=== PATIENT | male | born 1950 | race Caucasian/White ===

== ENCOUNTER 2021-10-23 22:44 | Inpatient (IN) ==
--- NOTE | 2021-10-23 23:33 | Emergency Department Note ---
History of Present Illness General Chief complaint: Back Injury/Pain Stated complaint: INTOXICATED/BACK AND FOOT PAIN Time Seen by Provider: 10/23/21 22:50 History of Present Illness Maximum Pain Intensity: 7 This 71-year-old on Coumadin presents to the ER complaining of alcohol intoxica tion who fell during his sobriety test Location: Generalized Quality: Intoxicated Severity: Moderate Duration: Tonight Timing: Tonight Context: Patient fell during his sobriety testing and was brought in Modifying factors: better with nothing; worse with nothing patient states he was drinking whiskey tonight. The police pulled him over and he fell during sobriety testing. They were concerned and brought him in. Patient is unsure why he is on Coumadin. Patient has chronic back pain and foot pain. Patient denies chest pain, dyspnea, headache, neck pain, abdominal pain, worsening back pain or foot pain. Home Medications Medication Instructions Recorded Confirmed Type albuterol sulfate 2.5 mg INHALATION Q4H PRN 02/02/21 10/23/21 History eplerenone 25 mg tablet 25 mg PO DAILY 02/02/21 10/23/21 History fluticasone propionate 50 2 spray INTRANASAL DAILY 02/02/21 10/23/21 History mcg/actuation nasal spray,suspension lanolin alcohols-mineral 1 applic TOPICAL DAILY PRN 02/02/21 10/23/21 History oil-w.petrolatum-ceresin topical cream (Eucerin) losartan 50 mg tablet 50 mg PO DAILY 02/02/21 10/23/21 History magnesium oxide 400 mg PO DAILY 02/02/21 10/23/21 History montelukast 10 mg tablet 10 mg PO HS 02/02/21 10/23/21 History omeprazole 20 mg capsule,delayed 20 mg PO DAILYBB 02/02/21 10/23/21 History release sennosides 8.6 mg tablet (senna) 8.6 mg PO BID 02/02/21 10/23/21 History triamcinolone acetonide 0.1 % 1 applic TOPICAL BID PRN 02/02/21 10/23/21 History topical cream vitamin B complex 1 cap PO DAILY 02/02/21 10/23/21 History BiPap Machine 07/01/21 07/01/21 History fluticasone fur. 200 mcg-umeclid 1 inh INHALATION DAILY 07/01/21 10/23/21 History 62.5 mcg-vilant 25 mcg inhalat.powder (Trelegy Ellipta) silver sulfadiazine 1 % topical 1 applic TOPICAL DAILY 07/01/21 10/23/21 History cream tramadol 50 mg tablet 50 mg PO Q8H PRN 07/01/21 10/23/21 History albuterol sulfate 90 mcg/actuation 2 puff INHALATION Q6H PRN 10/23/21 10/23/21 History aerosol inhaler allopurinol 100 mg tablet 100 mg PO Q8H 10/23/21 10/23/21 History carvedilol 6.25 mg tablet 6.25 mg PO BIDM 10/23/21 10/23/21 History furosemide 40 mg tablet 80 mg PO BID 10/23/21 10/23/21 History gabapentin 100 mg capsule 200 mg PO TID 10/23/21 10/23/21 History guaifenesin 600 mg tablet, 600 mg PO Q12H 10/23/21 10/23/21 History extended release 12 hr (Mucinex) meloxicam 15 mg tablet 15 mg PO DAILY PRN 10/23/21 10/23/21 History metformin 500 mg tablet,extended 500 mg PO BID 10/23/21 10/23/21 History release 24 hr rosuvastatin 20 mg tablet 20 mg PO DAILY 10/23/21 10/23/21 History warfarin 2 mg tablet See Rx Instructions .ROUTE .COMPLEX 10/23/21 10/23/21 History Allergies Allergy/AdvReac Type Severity Reaction Status Date / Time doxycycline AdvReac Intermediate DRY HEAVES Verified 10/23/21 23:17 PER [facility]. Past Med/Surg History Medical History Alcohol abuse in remission Asthma CAD (coronary artery disease) Cardiac defibrillator in place Centrilobular emphysema COPD (chronic obstructive pulmonary disease) COVID-19 Elevated PSA Gastroesophageal reflux disease without esophagitis Heart failure Hilar enlargement History of tobacco use Idiopathic cardiomyopathy Kienbock's disease of adults ANGELICA treated with BiPAP Peripheral neuropathy Presence of permanent cardiac pacemaker Prostate nodule Pure hypercholesterolemia Swelling, mass, or lump in chest 04/16/10 non diagnostic bronchoscopy Type 2 diabetes mellitus Surgical History History of permanent cardiac pacemaker placement Hx of colonoscopy Hx of prostate biopsy Status post left foot surgery Social History Smoking Status: Former smoker Number of Years Since Quit: 14; Hx Alcohol Use: Yes Hx Substance Use: No Preferred Language: Bahamian Communication Ability: Effective Visual Impairment: Limited Hearing Ability: Hard of Hearing 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 Beliefs That Will Affect Care: None Current Living Situation: Alone current occupational status: retired Feels Safe at Home: Yes Physical Activity Frequency Comment: has not been able to walk while recovering from surgery Assistive Devices: None Review of Systems A total of 10 systems reviewed and were otherwise negative Physical Exam Vital Signs Vital Signs - 24 hr 10/23/21 22:50 10/23/21 23:39 10/24/21 00:11 Temperature 37.0 C Temperature Source Oral Pulse Rate 76 73 Pulse Rate [Left Finger] 76 Respiratory Rate 18 18 26 H Respiratory Effort / Characteristics Non-Labored Spontaneous Non-Labored Spontaneous Respiratory Depth Normal Normal Blood Pressure 99/54 L Blood Pressure [Left Arm] 92/49 L Blood Pressure Mean 69 Blood Pressure Mean [Left Arm] 63 Pulse Oximetry 91 92 89 L Oxygen Delivery Method Room Air Room Air Room Air Oxygen Flow Rate 4 Sepsis Recent Fever Within 48 Hours No Sepsis New/Unexplained Change in Mental Status No Sepsis Action Taken by Nursing No Action Required 10/24/21 00:13 10/24/21 01:00 10/24/21 01:12 Temperature 36.5 C Temperature Source Oral Pulse Rate Pulse Rate [Left Finger] 68 69 82 Respiratory Rate 26 H 26 H 21 Respiratory Effort / Characteristics Respiratory Depth Normal Blood Pressure Blood Pressure [Left Arm] 101/55 L 105/46 L 106/54 L Blood Pressure Mean Blood Pressure Mean [Left Arm] 70 65 71 Pulse Oximetry 98 97 96 Oxygen Delivery Method Room Air Nasal Cannula Nasal Cannula Oxygen Flow Rate 4 4 Sepsis Recent Fever Within 48 Hours Sepsis New/Unexplained Change in Mental Status Sepsis Action Taken by Nursing PHYSICAL EXAM: VITALS: Vitals are noted on the nurse's note and reviewed by myself. Vital signs stable. GENERAL: Pleasant gentleman with EtOH odor, in no acute distress, nondiaphoretic, well-developed well-nourished. SKIN: Left foot cellulitis, not circumferential, the rest of the skin was without obvious lacerations or abrasions. Capillary reflex less than 2 seconds. HEAD: Normocephalic atraumatic. EARS: External auditory canals clear, tympanic membranes pearly carpenter without erythema or effusion bilaterally. No hemotympanums. No connolly sign. No mastoid tenderness. EYES: Pupils equal round and reactive to light and accommodation. Conjunctivae with mild injection, sclerae without icterus. Extraocular movements intact. NOSE: Patent, turbinates without inflammation or discharge. No sinus tenderness. No septal hematoma or bleeding. MOUTH: Mucous membranes moist. Pharynx without erythema or exudate. Uvula midl ine. Airway patent. Tongue does not deviate. NECK: Supple without nuchal rigidity. Cervical spine is nontender. Full range of motion of the neck without tenderness. No JVD. HEART: Regular rate and rhythm LUNGS: Clear to auscultation bilaterally without wheezes, rales or rhonchi. No dullness to percussion. No retractions or accessory muscle use. No chest wall tenderness. ABDOMEN: Positive bowel sounds x 4. Normal tympanic percussion. Soft, nontender, without masses or organomegaly. No guarding or rebound tenderness. MUSCULOSKELETAL: No tenderness of the thoracic or lumbar spine. No tenderness with pelvic rocking. Full range of motion without tenderness to palpation in all extremities. Strength 5/5 throughout. Peripheral pulses 2+. NEURO: Patient was alert and oriented to person place and time. Normal sensation to light and sharp touch. No focal neurological deficits. Course Administered Medications Discontinued Medications Sodium Chloride (Nss 1000ml) 250 mls @ 999 mls/hr IV .Q16M ONE Stop: 10/24/21 00:02 Last Infusion: 10/24/21 01:42 Dose: 0 mls/hr Documented by: [id number] Admin: 10/24/21 00:15 Dose: 999 mls/hr Documented by: [id number] Ceftriaxone Sodium (Rocephin) 2,000 mg in 70 mls @ 140 mls/hr IV NOW STA Stop: 10/24/21 00:57 Last Infusion: 10/24/21 01:42 Dose: 0 mls/hr Documented by: [id number] Admin: 10/24/21 01:01 Dose: 140 mls/hr Documented by: [id number] Sodium Chloride (Nss 1000ml) 1,000 mls @ 999 mls/hr IV .Q1H1M ONE Stop: 10/24/21 01:42 Last Admin: 10/24/21 01:01 Dose: 999 mls/hr Documented by: [id number] Medical Decision Making Medical Records Attestation: I reviewed the patient's medical records. Home Medications Current Medication List: was personally reviewed by me Laboratory Data Attestation: I reviewed the patient's lab results. Result diagrams: 10/23/21 23:12 10/23/21 23:22 Lab Results 10/23/21 10/23/21 10/23/21 Range/Units 23:12 23:12 23:12 WBC 10.51 (4.8-10.8) K/uL RBC 4.10 L (4.7-6.1) M/uL Hgb 13.0 L (14.0-18.0) g/dL Hct 38.2 L (42-52) % MCV 93.2 (80-100) fL MCH 31.7 (25-34) pg MCHC 34.0 (32-36) g/dL RDW Std Deviation 48.0 H (36.4-46.3) fL RDW Coeff of Anne-Marie 14.1 (11.5-14.5) % Plt Count 193 (130-400) K/uL MPV 10.9 H (7.4-10.4) fL Immature Gran % (Auto) 0.2 % Neut % (Auto) 64.6 % Lymph % (Auto) 24.9 % [place] % (Auto) 9.5 % Eos % (Auto) 0.6 % Baso % (Auto) 0.2 % Neut # (Auto) 6.79 H (1.4-6.5) K/uL Lymph # (Auto) 2.62 (1.2-3.4) K/uL [place] # (Auto) 1.00 H (0.11-0.59) K/uL Eos # (Auto) 0.06 (0-0.5) K/uL Baso # (Auto) 0.02 (0-0.2) K/uL Immature Gran # (Auto) 0.02 (0.00-0.02) K/uL PT 25.9 H (9.0-12.0) Seconds INR 2.6 H (0.9-1.1) APTT 38.4 H (21.0-31.0) Seconds PTT Ratio 1.4 Sodium (136-145) mmol/L Potassium (3.5-5.1) mmol/L Chloride (98-107) mmol/L Carbon Dioxide (21-32) mmol/L Anion Gap (3-11) BUN (6-23) mg/dl Creatinine (0.6-1.4) mg/dl Est Cr Clr Drug Dosing Est GFR ( Amer) ml/min Est GFR (Non-Af Amer) ml/min BUN/Creatinine Ratio (10-20) Glucose (70-99(Fasting)) mg/dl Calcium (8.5-10.1) mg/dl Magnesium (1.7-2.4) mg/dl Total Bilirubin (0.2-1.0) mg/dl AST (13-39) U/L ALT (7-52) U/L Alkaline Phosphatase (34-104) U/L Troponin I High Sens (0-20) pg/ml Total Protein (6.0-8.3) gm/dl Albumin (3.4-5.0) gm/dl Globulin (2.5-4.0) gm/dl Albumin/Globulin Ratio (0.9-2) Ethyl Alcohol mg/dL 300.1 H (<10.0) mg/dl SARS-CoV-2, RNA, NAAT (NEGATIVE) 10/23/21 10/23/21 10/24/21 Range/Units 23:22 23:22 00:55 WBC (4.8-10.8) K/uL RBC (4.7-6.1) M/uL Hgb (14.0-18.0) g/dL Hct (42-52) % MCV (80-100) fL MCH (25-34) pg MCHC (32-36) g/dL RDW Std Deviation (36.4-46.3) fL RDW Coeff of Anne-Marie (11.5-14.5) % Plt Count (130-400) K/uL MPV (7.4-10.4) fL Immature Gran % (Auto) % Neut % (Auto) % Lymph % (Auto) % [place] % (Auto) % Eos % (Auto) % Baso % (Auto) % Neut # (Auto) (1.4-6.5) K/uL Lymph # (Auto) (1.2-3.4) K/uL [place] # (Auto) (0.11-0.59) K/uL Eos # (Auto) (0-0.5) K/uL Baso # (Auto) (0-0.2) K/uL Immature Gran # (Auto) (0.00-0.02) K/uL PT (9.0-12.0) Seconds INR (0.9-1.1) APTT (21.0-31.0) Seconds PTT Ratio Sodium 130 L (136-145) mmol/L Potassium 3.6 (3.5-5.1) mmol/L Chloride 95 L (98-107) mmol/L Carbon Dioxide 24 (21-32) mmol/L Anion Gap 11 (3-11) BUN 23 (6-23) mg/dl Creatinine 0.96 (0.6-1.4) mg/dl Est Cr Clr Drug Dosing Not Reportable Est GFR ( Amer) 92.4 ml/min Est GFR (Non-Af Amer) 79.8 ml/min BUN/Creatinine Ratio 24.0 H (10-20) Glucose 99 (70-99(Fasting)) mg/dl Calcium 8.2 L (8.5-10.1) mg/dl Magnesium 2.1 (1.7-2.4) mg/dl Total Bilirubin 0.5 (0.2-1.0) mg/dl AST 28 (13-39) U/L ALT 21 (7-52) U/L Alkaline Phosphatase 93 (34-104) U/L Troponin I High Sens 8.4 (0-20) pg/ml Total Protein 7.0 (6.0-8.3) gm/dl Albumin 3.6 (3.4-5.0) gm/dl Globulin 3.4 (2.5-4.0) gm/dl Albumin/Globulin Ratio 1.1 (0.9-2) Ethyl Alcohol mg/dL (<10.0) mg/dl SARS-CoV-2, RNA, NAAT NEGATIVE (NEGATIVE) Imaging Data Attestation: I personally reviewed and interpreted this imaging study as follows: MDM Narrative Prior records/ancillary studies reviewed. Triage Nursing notes reviewed. Additional history obtained from police patrol lieutenant. The patient's history was concerning for traumatic injury Differential diagnosis: Etiologies such as fracture, dislocation, intra-abdominal, pneumothorax, intrathoracic , intracranial, neurologic, as well as other traumatic pathologies were entertained. Physical examination findings: As above. The patients vitals were stable. ER treatment provided: Patient was observed An order was placed for continuous cardiac monitoring. The monitor shows a rate of 60-100 with a sinus stable rhythm. On reassessment the patient felt better. Vital signs were hypotensive and patient was given IV fluids and blood pressure improved. []. Diagnostic interpretation by me: A 12 lead ECG revealed no emergent pathology. EKG: Paced rhythm with no acute ST-T wave changes, rate of 74. Impression paced rhythm interpreted by myself I think arrhythmia is unlikely. EKG shows no interval abnormalities such as QT prolongation or WPW. There are no findings to suggest Brugada syndrome. Cardiac monitoring in the emergency department reveals no tachycardic or bradycardic dysrhythmia. Hypertrophic cardiomyopathy was considered but there are no clear historical elements pointing toward this. EKG is not suggestive. The QRS voltage is not extremely large and there are no suggestive Q waves. The labs revealed mild anemia, therapeutic INR Alcohol 300 Imaging studies: CT HEAD: No ICH, mass effect or edema. No skull fracture. CT C SPINE: No acute fracture or malalignment. Radiologist: Casey Ford MD Consultation: A consultation was placed with hospitalist. the case was discussed and diagnostics were reviewed. The patient was admitted to their service. This appears to be consistent with alcohol intoxication with foot cellulitis. Patient's blood pressure did drop and improved nicely with some IV fluids. He is agreeable to treatment plan of admission. He was admitted to the medical service for alcohol overdose and foot cellulitis. By the evaluation outlined above emergent etiologies such as fracture, dislocation, intra-abdominal, pneumothorax, pulmonary contusion, hemothorax, intracranial, neurologic,as well as others were deemed relatively unlikely. The pt informed about the findings as listed above. All questions were answered and pleased with the treatment. The chart was completed utilizing [employer] voice recognition software. Grammatical errors, random word insertions, pronoun errors, and incomplete sentences are an occassional consequence of this system due to software limitations, ambient noise, and hardware issues. Any formal questions or concerns about the content, text, or information contained within the body of this dictation should be directly addressed to the physician fiscal assistant for clarification. Impression & Plan Alcohol intoxication, Fall, Cellulitis of foot Discharge Plan Visit Data Chief Complaint: Back Injury/Pain Stated Complaint: INTOXICATED/BACK AND FOOT PAIN ED Provider: Daina Casarez ED Midlevel Provider: Savanna Washington Discharge Problem: Alcohol intoxication, Fall, Cellulitis of foot Patient Disposition: Admitted As Inpatient Condition: Fair Forms Stand Alone Forms: [facility] Prescriptions Prescriptions: No Action tramadol 50 mg tablet 50 mg PO Q8H PRN (Reason: Pain, Severe) RF: 0 Trelegy Ellipta 200-62.5-25 mcg blister with device 1 inh inhalation DAILY RF: 0 silver sulfadiazine 1 % cream 1 applic topical DAILY RF: 0 (DME) BiPap Machine Misc See Rx Instructions .ROUTE RF: 0 furosemide 40 mg tablet 80 mg PO BID RF: 0 carvedilol 6.25 mg Tablet 6.25 mg PO BIDM RF: 0 meloxicam 15 mg Tablet 15 mg PO DAILY PRN (Reason: Pain) RF: 0 allopurinol 100 mg tablet 100 mg PO Q8H RF: 0 warfarin 2 mg Tablet See Rx Instructions .ROUTE .COMPLEX RF: 0 gabapentin 100 mg Capsule 200 mg PO TID RF: 0 albuterol sulfate 90 mcg/actuation Hfa Aerosol Inhaler 2 puff INHALATION Q6H PRN (Reason: Shortness Of Breath Or Wheezing) RF: 0 metformin 500 mg tablet extended release 24 hr 500 mg PO BID RF: 0 rosuvastatin 20 mg tablet 20 mg PO DAILY RF: 0 guaifenesin [Mucinex] 600 mg Tablet Extended Release 12hr 600 mg PO Q12H RF: 0 losartan 50 mg Tablet 50 mg PO DAILY RF: 0 sennosides [senna] 8.6 mg Tablet 8.6 mg PO BID RF: 0 albuterol sulfate 2.5 mg /3 mL (0.083 %) Solution For Nebulization 2.5 mg INHALATION Q4H PRN (Reason: Wheezing) RF: 0 triamcinolone acetonide 0.1 % Cream 1 applic TOPICAL BID PRN (Reason: Skin Irritation) RF: 0 omeprazole 20 mg Capsule,Delayed Release(Dr/Ec) 20 mg PO DAILYBB RF: 0 montelukast 10 mg Tablet 10 mg PO HS RF: 0 fluticasone propionate 50 mcg/actuation [place],Suspension 2 spray INTRANASAL DAILY RF: 0 vitamin B complex Capsule 1 cap PO DAILY RF: 0 eplerenone 25 mg Tablet 25 mg PO DAILY RF: 0 Eucerin Cream 1 applic TOPICAL DAILY PRN (Reason: Rash) RF: 0 magnesium oxide 400 mg magnesium Capsule 400 mg PO DAILY RF: 0 Referrals Referrals: Konrad Reinoso MD [Primary Care Provider] - Discharge Problem: Alcohol intoxication Qualifiers: Complication of substance-induced condition: uncomplicated Qualified Code(s): F10.920 - Alcohol use, unspecified with intoxication, uncomplicated
[2021-10-23 23:35] LABS: Basophils # (auto) 0.02 K/uL (0-0.2); Basophils % (auto) 0.2 %; Eosinophils # (auto) 0.06 K/uL (0-0.5); Eosinophils % (auto) 0.6 %; Hematocrit (blood only) 38.2 % (42-52); Immature Granulocytes # (auto) 0.02 K/uL (0.00-0.02); Immature Granulocytes % (auto) 0.2 %; Lymphocytes # (auto) 2.62 K/uL (1.2-3.4); Lymphocytes % (auto) 24.9 %; Mean Corpuscular Hemoglobin 31.7 pg (25-34); Mean Corpuscular Volume 93.2 fL (80-100); Mean Platelet Volume 10.9 fL (7.4-10.4); Monocytes % (auto) 9.5 %; Neutrophils # (auto) 6.79 K/uL (1.4-6.5); Neutrophils % (auto) 64.6 %; Platelet Count 193 K/uL (130-400); RDW Coefficient of Variation 14.1 % (11.5-14.5); White Blood Count 10.51 K/uL (4.8-10.8)
[2021-10-23 23:45] LABS: INR 2.6 (0.9-1.1); Partial Thromboplastin Ratio 1.4; Partial Thromboplastin Time 38.4 Seconds (21.0-31.0); Prothrombin Time 25.9 Seconds (9.0-12.0)
[2021-10-23] MEDS ORDERED: SODIUM CHLORIDE 0.9% 1000ML 250 ML IV ONE (23:47)
[2021-10-24 00:02] LABS: Alanine Aminotransferase 21 U/L (7-52); Albumin Globulin Ratio 1.1 (0.9-2); Albumin Level 3.6 gm/dl (3.4-5.0); Alkaline Phosphatase 93 U/L (34-104); Anion Gap 11 (3-11); Aspartate Aminotransferase 28 U/L (13-39); Bilirubin,Total 0.5 mg/dl (0.2-1.0); Blood Urea Nitrogen 23 mg/dl (6-23); Calcium 8.2 mg/dl (8.5-10.1); Carbon Dioxide 24 mmol/L (21-32); Chloride 95 mmol/L (98-107); Est GFR (African American) 92.4 ml/min; Est GFR (Non-African American) 79.8 ml/min; Globulin 3.4 gm/dl (2.5-4.0); Glucose 99 mg/dl (70-99(Fasting)); Potassium 3.6 mmol/L (3.5-5.1); Sodium 130 mmol/L (136-145)
[2021-10-24] MEDS ORDERED: cefTRIAXone SODIUM 2,000 MG/70 ML BAG IV STA (00:28)
[2021-10-24] MEDS ORDERED: SODIUM CHLORIDE 0.9% 1000ML 1,000 ML IV ONE (00:42)
[2021-10-24 01:07] LABS: Magnesium 2.1 mg/dl (1.7-2.4)
[2021-10-24 01:28] LABS: Troponin I High Sensitivity 8.4 pg/ml (0-20)
[2021-10-24] MEDS ORDERED: FUROSEMIDE 40 MG/4 ML VIAL IV ONE (01:45)
[2021-10-24] MEDS ORDERED: GABAPENTIN 1200MG ALCOHOL WITHDRAWAL LOAD PO STA (01:45)
[2021-10-24] MEDS ORDERED: traMADol HCL 50 MG TABLET PO PRN (02:35)
[2021-10-24] MEDS ORDERED: ATIVAN IV ALCOHOL WITHDRAWL IV PRN (02:35)
[2021-10-24] MEDS ORDERED: LORazepam 2 MG/1 ML VIAL IV PRN ×3 (02:35)
[2021-10-24] MEDS ORDERED: TRIAMCINOLONE ACET 0.1% CR 15 GM TUBE TOP PRN (02:35)
[2021-10-24] MEDS ORDERED: ALBUTEROL 0.083% NEBU SOLN 3 ML VIAL INH PRN (02:35)
[2021-10-24] MEDS ORDERED: ALBUTEROL HFA 8 GM INHALER INH PRN (02:35)
[2021-10-24] MEDS ORDERED: NITROGLYCERIN SL 0.4 MG/TAB TAB SL PRN (02:35)
[2021-10-24] MEDS ORDERED: ONDANSETRON INJ 2 MG/ML 2 ML VIAL IV PRN (02:35)
[2021-10-24] MEDS ORDERED: GABAPENTIN 600 MG TAB PO ONE (03:00)
[2021-10-24] MEDS ORDERED: MULTI-VITAMIN INFUSION 10 ML, THIAMINE HCL 100 MG, FOLIC ACID 1 MG in SODIUM CHLORIDE 0... IV ONE (03:00)
[2021-10-24] MEDS ORDERED: EUCERIN CR 120 GM JAR TOP PRN (03:09)
[2021-10-24] MEDS ORDERED: CARBOHYDRATES FOR HYPOGLYCEMIA PO PRN (03:15)
[2021-10-24] MEDS ORDERED: GLUCOSE 10 TABS/TUBE PO PRN (03:15)
[2021-10-24] MEDS ORDERED: GLUCOSE 40% GEL 15 GM TUBE PO PRN (03:15)
[2021-10-24] MEDS ORDERED: DEXTROSE 50% 50 ML SYRINGE IV PRN (03:15)
[2021-10-24] MEDS ORDERED: GLUCAGON FOR INJ 1 MG VIAL IM PRN (03:15)
--- NOTE | 2021-10-24 04:10 | History and Physical Report ---
DATE OF ADMISSION: 10/24/2021. CHIEF COMPLAINT: Alcoholism, fall, hypoxia. HISTORY OF PRESENT ILLNESS: A 71-year-old male with past medical history significant for type 2 diabetes, hypercholesterolemia, COPD, sleep apnea on BiPAP; history of chronic systolic CHF with EF 20% many years ago, status post biventricular implantable cardiac defibrillator, Latest echo, EF normalized, nonischemic cardiomyopathy, hypertension, GERD, history of prostate cancer, kienbock's disease of adults, history of tobacco abuse, history of COVID, presents with alcoholism. The patient was stopped by chief security officer for driving under the influence, when he opened the door, he fell and chief security officer brought him here. No loss of consciousness. In the ER, he was hypoxic, currently on oxygen 4 liters. He is on Coumadin. INR is therapeutic. Currently alert, awake, and oriented. Denies any headache. No blurred vision, no double vision, no earache, no runny nose. Has chronic cough. Says he quit smoking several years ago. Denies any chest pain, feeling short of breath, no nausea, no vomiting, no abdominal pain, no diarrhea or constipation. No blood in stool or black stools. Normal bladder movements. Has chronic infection of the left foot. He said he had surgery in in the foot, afebrile. The patient says he drinks about 4-5 shots of whiskey every day and also 1 beer daily. His alcohol level was 300 in the ER. ALLERGIES: DOXYCYCLINE. PAST MEDICAL HISTORY: As mentioned above. PAST SURGICAL HISTORY: Colonoscopy, fusion of left mid foot bones in 03/2021 at [facility], left pacemaker insertion, left ventricular pacing electrode was early in 2012. MEDICATIONS: The patient is on albuterol 2 puffs inhalation q. 6 hours p.r.n., albuterol nebulization q. 4 hours p.r.n., allopurinol 100 mg p.o. t.i.d., Coreg 6.25 mg p.o. b.i.d., eplerenone 25 mg p.o. daily, Trelegy Ellipta one inhalation daily, Flonase 2 sprays intranasal daily, Lasix 80 mg p.o. b.i.d., gabapentin 200 mg p.o. t.i.d., Mucinex 600 mg p.o. b.i.d., losartan 50 mg p.o. daily, magnesium oxide 400 mg p.o. daily, meloxicam 15 mg p.o. daily p.r.n., metformin 500 mg p.o. b.i.d., montelukast 10 mg p.o. at bedtime, omeprazole 20 mg p.o. daily, atorvastatin 20 mg p.o. daily, senna 8.6 mg p.o. b.i.d., silver sulfadiazine 1% topical daily, tramadol 50 mg p.o. 8 hours p.r.n., vitamin B complex 1 capsule p.o. daily, warfarin as directed. FAMILY HISTORY: Significant for father had skin cancer, diabetes, heart disorder. Brother has heart disorder. SOCIAL HISTORY: Former smoker quit in 2007, smoked 2 packs a day for 35 years. Alcohol, says he has 4-5 shots of whiskey daily and also drinks 1 beer daily. No history of drug use. REVIEW OF SYSTEMS: As per HPI. Rest of review of systems is negative. PHYSICAL EXAMINATION: GENERAL: The patient is obese, not in acute distress. VITAL SIGNS: Temperature 36.5, pulse 82, respiratory rate 21, blood pressure 106/54, oxygen 96% on 4 liters. HEENT: Pupils equal, round and reactive to light. Oral mucosa moist. NECK: No JVD. No neck mass. CARDIOVASCULAR: S1 and S2 heard. Regular rate and rhythm. No murmur, no gallop. RESPIRATORY SYSTEM: Normal AP diameter. No accessory muscle use. No wheezing, no crackles. ABDOMEN: Soft, bowel sounds present, nontender, no distention. CENTRAL NERVOUS SYSTEM: Cranial nerves II-XII grossly intact, nonfocal. EXTREMITIES: Left foot erythematous and mildly warm to touch. No edema seen. LABORATORY DATA: WBC 10.5, hemoglobin 13, hematocrit 38.2, platelets 193. PT 25.9, INR 2.6. APTT 38.4. Sodium 130, potassium 3.6, chloride 95, bicarbonate 24, BUN 23, creatinine 0.9, serum glucose 99, calcium 8.2, magnesium 2.1, total bilirubin 0.5, AST 28, ALT 21, alkaline phosphatase 93, ethyl alcohol 100. SARS-CoV-2 rapid test negative. Chest x-ray, possible mild congestion. CT head, preliminary report, no acute findings. CT cervical spine, no fracture or malalignment. EKG: Atrial sensed ventricular paced rhythm, rate of 74. ASSESSMENT AND PLAN: This 71-year-old male presents with alcoholism and fall and hypoxia. 1. Alcoholism, alcohol of 300. The patient was stopped for driving under influence by the chief security officer. He says drinks 4-5 shots of whiskey daily and also one beer daily. We will place him on gabapentin withdrawal protocol, IV Ativan p.r.n., banana bag, IV thiamine, IV folic acid Closely monitor in the med tele. 2. Hypoxia. Possible acute on chronic HFpEF. The patient has history of chronic obstructive pulmonary disease, was not actively wheezing. Chest x-ray, possible mild congestion. History of heart failure with preserved ejection fraction. We will give a dose of IV Lasix 40 and also get an echocardiogram and monitor the response and also continue his home Lasix at 80 b.i.d. and Coreg, eplerenone, and losartan. 3. Left foot cellulitis. On rocephin. Will monitor response.Says as chrnic infection in that foot. Also monitor for gout flare. 4. Hx of gout on allopurinol 5.. Diabetes: Hold metformin. Placed on insulin sliding scale. Follow the HbA1c levels. 6 Hypertension: On losartan, Coreg and eplerenone. We will monitor the blood pressure. 7. History of chronic obstructive pulmonary disease: Continue home inhalers and nebs p.r.n. 8. Gastroesophageal reflux disease: Continue omeprazole. 9. Hyperlipidemia: Continue statin. 10. Hx of CHF. As per cardiology notes notes he had EF of 20%, 2 years ago and status post biventricular AICD. But later EF normalized.Follow up with Cardiology and follow the echocardiogram.The patient is on Coumadin, possibly for low EF in the past. INR is therapeutic. 11. History of prostate cancer: Followup with Urology. 12. Deep venous thrombosis prophylaxis: On Coumadin. 13. Obstructive sleep apnea, on BiPAP at bedtime. DISPOSITION: Closely monitor in the med tele. PT/OT prior to discharge. Social service to help with discharge planning. Level 1 full code. Job ID: [id number] [facility]
[2021-10-24] MEDS: allopurinoL 100 MG TAB PO SCH ×3 (05:32→22:51)
[2021-10-24] MEDS: PANTOprazole 40 MG TAB PO SCH (05:33)
[2021-10-24 05:42] LABS: INR 2.2 (0.9-1.1); Prothrombin Time 22.6 Seconds (9.0-12.0)
[2021-10-24 05:44] LABS: Basophils # (auto) 0.01 K/uL (0-0.2); Basophils % (auto) 0.1 %; Eosinophils # (auto) 0.01 K/uL (0-0.5); Eosinophils % (auto) 0.1 %; Hematocrit (blood only) 40.6 % (42-52); Hemoglobin 13.7 g/dL (14.0-18.0); Immature Granulocytes # (auto) 0.02 K/uL (0.00-0.02); Immature Granulocytes % (auto) 0.3 %; Lymphocytes % (auto) 6.3 %; Mean Corpuscular Hemoglobin 31.9 pg (25-34); Mean Corpuscular Hgb Conc 33.7 g/dL (32-36); Mean Corpuscular Volume 94.4 fL (80-100); Mean Platelet Volume 10.8 fL (7.4-10.4); Monocytes # (auto) 0.41 K/uL (0.11-0.59); Monocytes % (auto) 5.1 %; Neutrophils # (auto) 7.03 K/uL (1.4-6.5); Neutrophils % (auto) 88.1 %; Platelet Count 187 K/uL (130-400); RDW Coefficient of Variation 14.2 % (11.5-14.5); RDW Standard Deviation 48.7 fL (36.4-46.3); White Blood Count 7.98 K/uL (4.8-10.8)
[2021-10-24 06:01] LABS: Albumin Level 3.5 gm/dl (3.4-5.0); BUN Creatinine Ratio 22.8 (10-20); Bilirubin Direct 0.2 mg/dl (0-0.2); Bilirubin,Total 0.5 mg/dl (0.2-1.0); Calcium 7.9 mg/dl (8.5-10.1); Creatinine Clr Calc Pharmacy 93.9 ml/min; Est GFR (African American) 97.3 ml/min; Potassium 3.6 mmol/L (3.5-5.1); Total Protein 6.8 gm/dl (6.0-8.3)
--- NOTE | 2021-10-24 07:06 | CT Scan Report ---
HEAD CT NONCONTRAST CT DOSE: 1075.84 mGy.cm HISTORY: Trauma TECHNIQUE: Multiaxial CT images of the head were performed without the use of intravenous contrast. A utomated exposure control was utilized for this study. A dose lowering technique was utilized adheri ng to the principles of ALARA. Comparison: None. Findings: The paranasal sinuses and mastoid air cells are clear. The calvarium and skull base are int act. The ventricles and sulci are within normal limits. There is no mass, hematoma, midline shift, or acute infarct. Impression: No acute intracranial abnormality. ACT 112: Negative or not required by law. Electronically signed by: Surinder Dey M.D. 10/24/2021 7:05 AM
--- NOTE | 2021-10-24 07:13 | CT Scan Report ---
CERVICAL SPINE CT CT DOSE: HISTORY: Trauma TECHNIQUE: Multiaxial CT images of the cervical spine were performed and reformatted in the sagittal and coronal plane without the use of contrast. A dose lowering technique was utilized adhering to th e principles of ALARA. COMPARISON: None. FINDINGS: No fractures. No subluxation. Prevertebral soft tissues and the C1-C2 interval are intact. No pneumothorax. Severe degenerative disc disease at C5-C6. IMPRESSION: No fractures within the cervical spine. ACT 112: Negative or not required by law. Electronically signed by: Surinder Dey M.D. 10/24/2021 7:11 AM
[2021-10-24] MEDS: guaiFENesin 600 MG TABCR PO SCH ×2 (08:02→20:14)
[2021-10-24] MEDS: ROSUVASTATIN CALCIUM 20 MG TAB PO SCH (08:03)
[2021-10-24] MEDS: FUROSEMIDE 80 MG TAB PO SCH ×2 (08:03→15:38)
[2021-10-24] MEDS: MAGNESIUM OXIDE 400 MG TAB PO SCH (08:03)
[2021-10-24] MEDS: SENNA 8.6 MG TAB PO SCH ×2 (08:03→20:14)
[2021-10-24] MEDS: VITAMIN B COMPLEX TAB PO SCH (08:03)
[2021-10-24] MEDS: GABAPENTIN 100 MG CAP PO SCH ×2 (08:03→10:57)
[2021-10-24] MEDS: carvediloL 6.25 MG TAB PO SCH ×2 (08:03→15:36)
[2021-10-24] MEDS: LOSARTAN POTASSIUM 50 MG TAB PO SCH (08:03)
[2021-10-24] MEDS: THIAMINE HCL 100 MG in SYRINGE 9 ML IV SCH (08:04)
[2021-10-24] MEDS: FLUTICASONE PROPIONATE NA SPR 16 GM BTL SCH (08:04)
[2021-10-24] MEDS: FOLIC ACID 1 MG in SYRINGE 9.8 ML IV SCH (08:04)
[2021-10-24] MEDS: FLUTICASONE FUROATE 200MCG 14 PUFFS/INHALER INH SCH (08:04)
[2021-10-24] MEDS: UMECLIDINIUM/VILANTEROL 62.5/25MCG 7 PUFFS/INHALER INH SCH (08:05)
[2021-10-24] MEDS: INSULIN ASPART PER UNIT SC SCH ×4 (08:31→20:30)
--- NOTE | 2021-10-24 08:51 | XRay Report ---
XR chest 1V portable HISTORY: cough COMPARISON: Chest 11/28/2018. FINDINGS: There is a left-sided pacemaker/defibrillator. The cardiac silhouette remains borderline en larged. No pneumothorax. No pleural effusions. There is mild central pulmonary vascular congestion wi thout overt edema. Left basilar linear densities favor subsegmental atelectasis/scarring. IMPRESSION: 1. Mild central pulmonary vascular congestion without overt edema. 2. Left basilar linear densities favor subsegmental atelectasis or scarring. ACT 112: Negative or not required by law. Electronically signed by: Surinder Dey M.D. 10/24/2021 8:49 AM
[2021-10-24] MEDS ORDERED: NON-FORMULARY MEDICATION (Fluticasone-Umeclidin-Vilanter [Trelegy Ellipta] 200-62.5-25 mcg INH SCH (09:00)
--- NOTE | 2021-10-24 10:30 | Electrocardiogram Report ---
Test Reason : Blood Pressure : / mmHG Vent. Rate : 074 BPM Atrial Rate : 074 BPM P-R Int : 176 ms QRS Dur : 138 ms QT Int : 434 ms P-R-T Axes : 015 143 011 degrees QTc Int : 481 ms Poor data quality, interpretation may be adversely affected Atrial-sensed ventricular-paced rhythm Abnormal ECG When compared with ECG of 25-NOV-2017 14:07, Vent. rate has decreased BY 14 BPM Confirmed by Forrest Sarkar ([id number]) on 10/24/2021 10:30:28 AM Referred By: REFERRED SELF Confirmed By:Forrest Sarkar
[2021-10-24] MEDS: GABAPENTIN 600 MG TAB PO SCH ×3 (11:18→22:52)
[2021-10-24] MEDS: SILVER SULFADIAZINE 1% CR 50 GM JAR TOP SCH (11:18)
--- NOTE | 2021-10-24 12:01 | Communication Note ---
Date of Service: October 24, 2021 Pt was seen and examined for follow up of alcohol intoxication. sitting at the edge of the bed with no acute distress eating lunch Pt said that he feels ok. He said that he drinks 2 bottle of whisky a day He said that his drinking has gotten worst lately He denies any history of alcohol withdrawal or DT in the past Denies any chest pain, palpitation, dizziness and SOB General- No acute distress Head- atraumatic Eyes- PERRL, EOMI,no nystagmus ENT- oropharynx clear Neck- supple, no JVD Lungs- clear to auscultation Heart- regular rhythm; no murmur Abdomen- normal bowel sounds, soft, nontender Extremities- no calf tenderness Neuro- alert, oriented x 3; PERRL, EOMI; no facial palsy; no dysarthria, no tremor Skin- warm & dry A/P Alcohol intoxication Alcohol abuse Alcohol level 300 on admission Continue Gabapentin and Ativan alcohol withdrawal protocol Counseling on alcohol cessation Continue thiamine and folic acid Consider inpatient alcohol rehab Hypoxia. Possible acute on chronic HFpEF. Chest x-ray, possible mild congestion. Received lasix 40mg IV Continue home lasix dose 80mg BID Left foot cellulitis. Continue rocephin. DVT px on coumadin
[2021-10-24] MEDS: WARFARIN SOD 6 MG TAB PO SCH (15:37)
[2021-10-24] MEDS: MONTELUKAST SODIUM 10 MG TABLET PO SCH (20:14)
[2021-10-24] MEDS: cefTRIAXone SODIUM 2,000 MG in DEXTROSE 5% 50 ML IV SCH (22:51)
[2021-10-25] MEDS: allopurinoL 100 MG TAB PO SCH ×3 (05:38→19:55)
[2021-10-25] MEDS: PANTOprazole 40 MG TAB PO SCH (05:39)
[2021-10-25 06:28] LABS: INR 1.6 (0.9-1.1); Prothrombin Time 16.7 Seconds (9.0-12.0)
[2021-10-25 07:26] LABS: Estimated Average Glucose 134 mg/dl; Hemoglobin A1C 6.3 % (4.5-5.6)
[2021-10-25] MEDS: MAGNESIUM OXIDE 400 MG TAB PO SCH (08:19)
[2021-10-25] MEDS: FOLIC ACID 1 MG in SYRINGE 9.8 ML IV SCH (08:19)
[2021-10-25] MEDS: THIAMINE HCL 100 MG in SYRINGE 9 ML IV SCH (08:19)
[2021-10-25] MEDS: carvediloL 6.25 MG TAB PO SCH ×2 (08:19→16:27)
[2021-10-25] MEDS: FUROSEMIDE 80 MG TAB PO SCH ×2 (08:20→16:29)
[2021-10-25] MEDS: ROSUVASTATIN CALCIUM 20 MG TAB PO SCH (08:20)
[2021-10-25] MEDS: LOSARTAN POTASSIUM 50 MG TAB PO SCH (08:20)
[2021-10-25] MEDS: GABAPENTIN 600 MG TAB PO SCH ×2 (08:20→16:25)
[2021-10-25] MEDS: VITAMIN B COMPLEX TAB PO SCH (08:21)
[2021-10-25] MEDS: guaiFENesin 600 MG TABCR PO SCH ×2 (08:21→19:57)
[2021-10-25] MEDS: UMECLIDINIUM/VILANTEROL 62.5/25MCG 7 PUFFS/INHALER INH SCH (08:22)
[2021-10-25] MEDS: FLUTICASONE FUROATE 200MCG 14 PUFFS/INHALER INH SCH (08:23)
[2021-10-25] MEDS: FLUTICASONE PROPIONATE NA SPR 16 GM BTL SCH (08:23)
[2021-10-25] MEDS: INSULIN ASPART PER UNIT SC SCH ×4 (08:29→20:10)
[2021-10-25] MEDS: SENNA 8.6 MG TAB PO SCH ×2 (10:48→19:56)
[2021-10-25] MEDS: SILVER SULFADIAZINE 1% CR 50 GM JAR TOP SCH (10:48)
[2021-10-25] MEDS: WARFARIN SOD 6 MG TAB PO SCH (16:25)
--- NOTE | 2021-10-25 17:16 | Hospitalist Progress Note ---
Date of Service October 25, 2021 Assessment & Plan (1) Alcohol abuse: (2) Alcohol intoxication: Plan: 71 years old male was brought by police after found with alcohol intoxication. Alcohol level 300 on admission Pt said that he has been drinking about 2 bottle of whiskey daily Denies any history of DT and alcohol withdrawal in the past Currently on Gabapentin and Ativan for alcohol withdrawal protocol Counseling on alcohol cessation Continue thiamine and folic acid Continue monitor closely for DT Consider inpatient alcohol rehab Hypoxia Possible acute on chronic HFpEF. Chest x-ray, possible mild congestion. Echo showed no LV wall motion abnormality with ejection fraction 60 to 65% Received lasix 40mg IV Continue home lasix dose 80mg BID Clinically improved significantly Left foot cellulitis. WBC within normal limit Continue Rocephin. Cardiomyopathy Biventricular ICD placement Continue coumadin, INR 1.6 today Continue monitor PT/INR DM type 2 Most recent hba1c 6.3 Continue to hold PO metformin Continue insulin sliding scale Continue monitor BS COPD ANGELICA Continue Cpap at night HTN Continue Losartan BP stable DVT px on coumadin Code status Full code Admission and Anticipated Discharge Date Admission Date: October 24, 2021 Subjective Patient was seen and evaluated for follow-up of alcohol abuse Lying in bed with no acute distress Pt said that he could not fall asleep last night Denies any hallucination, palpitation, dizziness and SOB Review of Systems Review of Systems: All systems reviewed & are unremarkable except as noted in Subjective Physical Exam Physical Exam: General- No acute distress Head- atraumatic Eyes- PERRL, EOMI, ENT- oropharynx clear, no nystagmus Neck- supple, no JVD Lungs- clear to auscultation Heart- regular rhythm; no murmur Abdomen- normal bowel sounds, soft, nontender Extremities- no calf tenderness Neuro- alert, oriented x 3; PERRL, EOMI; no facial palsy; no dysarthria, no tremors Skin- warm & dry Results & Data Results & Data ([facility]) Vital Signs (Past 12 Hours) Vital Signs Temp Pulse Resp BP Pulse Ox 10/25/21 14:55 36.7 C 86 18 114/66 96 10/25/21 11:15 36.9 C 81 16 99/62 L 96 10/25/21 07:13 36.7 C 88 18 123/73 96 (1) Alcohol intoxication Complication of substance-induced condition: uncomplicated Qualified Code(s): F10.920 - Alcohol use, unspecified with intoxication, uncomplicated
[2021-10-25] MEDS: MONTELUKAST SODIUM 10 MG TABLET PO SCH (19:56)
[2021-10-25] MEDS: cefTRIAXone SODIUM 2,000 MG in DEXTROSE 5% 50 ML IV SCH (22:24)
[2021-10-26] MEDS: PANTOprazole 40 MG TAB PO SCH (06:08)
[2021-10-26] MEDS: allopurinoL 100 MG TAB PO SCH ×2 (06:08→07:20)
[2021-10-26] MEDS: GABAPENTIN 600 MG TAB PO SCH ×2 (06:09→15:46)
[2021-10-26 06:59] LABS: Hematocrit (blood only) 40.3 % (42-52); Hemoglobin 13.5 g/dL (14.0-18.0); Mean Corpuscular Hemoglobin 32.1 pg (25-34); Mean Corpuscular Hgb Conc 33.5 g/dL (32-36); Mean Corpuscular Volume 95.7 fL (80-100); Platelet Count 151 K/uL (130-400); RDW Coefficient of Variation 14.5 % (11.5-14.5); RDW Standard Deviation 50.5 fL (36.4-46.3); Red Blood Count 4.21 M/uL (4.7-6.1); White Blood Count 10.52 K/uL (4.8-10.8)
[2021-10-26 07:04] LABS: INR 1.6 (0.9-1.1); Prothrombin Time 16.8 Seconds (9.0-12.0)
[2021-10-26] MEDS: FLUTICASONE FUROATE 200MCG 14 PUFFS/INHALER INH SCH (07:16)
[2021-10-26] MEDS: UMECLIDINIUM/VILANTEROL 62.5/25MCG 7 PUFFS/INHALER INH SCH (07:16)
[2021-10-26] MEDS: FLUTICASONE PROPIONATE NA SPR 16 GM BTL SCH (07:17)
[2021-10-26] MEDS: SILVER SULFADIAZINE 1% CR 50 GM JAR TOP SCH (07:17)
[2021-10-26] MEDS: THIAMINE HCL 100 MG in SYRINGE 9 ML IV SCH (07:17)
[2021-10-26] MEDS: FOLIC ACID 1 MG in SYRINGE 9.8 ML IV SCH (07:17)
[2021-10-26] MEDS: carvediloL 6.25 MG TAB PO SCH ×2 (07:18→15:45)
[2021-10-26] MEDS: MAGNESIUM OXIDE 400 MG TAB PO SCH (07:19)
[2021-10-26] MEDS: ROSUVASTATIN CALCIUM 20 MG TAB PO SCH (07:19)
[2021-10-26] MEDS: FUROSEMIDE 80 MG TAB PO SCH ×2 (07:19→15:46)
[2021-10-26] MEDS: SENNA 8.6 MG TAB PO SCH (07:19)
[2021-10-26] MEDS: LOSARTAN POTASSIUM 50 MG TAB PO SCH (07:19)
[2021-10-26] MEDS: VITAMIN B COMPLEX TAB PO SCH (07:19)
[2021-10-26] MEDS: guaiFENesin 600 MG TABCR PO SCH (07:20)
[2021-10-26] MEDS: INSULIN ASPART PER UNIT SC SCH ×3 (08:19→17:20)
[2021-10-26] MEDS ORDERED: POLYETHYLENE (MIRALAX) 17 GM PACK PO ONE (12:39)
[2021-10-26] MEDS ORDERED: WARFARIN SOD 4 MG TAB PO SCH (16:00)
[2021-10-26] MEDS ORDERED: WARFARIN SOD 2 MG TAB PO ONE (16:00)
--- NOTE | 2021-10-26 18:11 | Discharge Summary ---
Date of Service October 26, 2021 Admission HPI Per Admitting Provider CHIEF COMPLAINT: Alcoholism, fall, hypoxia. HISTORY OF PRESENT ILLNESS: A 71-year-old male with past medical history significant for type 2 diabetes, hypercholesterolemia, COPD, sleep apnea on BiPAP; history of chronic systolic CHF with EF 20% many years ago, status post biventricular implantable cardiac defibrillator, Latest echo, EF normalized, nonischemic cardiomyopathy, hypertension, GERD, history of prostate cancer, kienbock's disease of adults, history of tobacco abuse, history of COVID, presents with alcoholism. The patient was stopped by breakfast attendant for driving under the influence, when he opened the door, he fell and breakfast attendant brought him here. No loss of consciousness. In the ER, he was hypoxic, currently on oxygen 4 liters. He is on Coumadin. INR is therapeutic. Currently alert, awake, and oriented. D enies any headache. No blurred vision, no double vision, no earache, no runny nose. Has chronic cough. Says he quit smoking several years ago. Denies any chest pain, feeling short of breath, no nausea, no vomiting, no abdominal pain, no diarrhea or constipation. No blood in stool or black stools. Normal bladder movements. Has chronic infection of the left foot. He said he had surgery in in the foot, afebrile. The patient says he drinks about 4-5 shots of whiskey every day and also 1 beer daily. His alcohol level was 300 in the ER. Admission Exam Per Admitting Provider GENERAL: The patient is obese, not in acute distress. VITAL SIGNS: Temperature 36.5, pulse 82, respiratory rate 21, blood pressure 106/54, oxygen 96% on 4 liters. HEENT: Pupils equal, round and reactive to light. Oral mucosa moist. NECK: No JVD. No neck mass. CARDIOVASCULAR: S1 and S2 heard. Regular rate and rhythm. No murmur, no gallop. RESPIRATORY SYSTEM: Normal AP diameter. No accessory muscle use. No wheezing, no crackles. ABDOMEN: Soft, bowel sounds present, nontender, no distention. CENTRAL NERVOUS SYSTEM: Cranial nerves II-XII grossly intact, nonfocal. EXTREMITIES: Left foot erythematous and mildly warm to touch. No edema seen. Principal Diagnosis General- No acute distress Head- atraumatic Eyes- PERRL, EOMI, ENT- oropharynx clear, no nystagmus Neck- supple, no JVD Lungs- clear to auscultation Heart- regular rhythm; no murmur Abdomen- normal bowel sounds, soft, nontender Extremities- no calf tenderness Neuro- alert, oriented x 3; PERRL, EOMI; no facial palsy; no dysarthria, no tremors Skin- warm & dry Discharge Exam General- No acute distress Head- atraumatic Eyes- PERRL, EOMI, ENT- oropharynx clear, no nystagmus Neck- supple, no JVD Lungs- clear to auscultation Heart- regular rhythm; no murmur Abdomen- normal bowel sounds, soft, nontender Extremities- no calf tenderness Neuro- alert, oriented x 3; PERRL, EOMI; no facial palsy; no dysarthria, no tremors Skin- warm & dry Discharge Data Allergies Allergy/AdvReac Type Severity Reaction Status Date / Time doxycycline AdvReac Intermediate DRY HEAVES Verified 10/23/21 23:17 PER [facility]. Consultations 10/24/21 00:22 ED Decision to Admit Stat Ordered Studies 10/23/21 23:01 CT cervical spine wo con Urgent CT head/brain wo con Urgent XR chest 1V portable HISTORY: cough COMPARISON: Chest 11/28/2018. FINDINGS: There is a left-sided pacemaker/defibrillator. The cardiac silhouette remains borderline enlarged. No pneumothorax. No pleural effusions. There is mild central pulmonary vascular congestion without overt edema. Left basilar linear densities favor subsegmental atelectasis/scarring. IMPRESSION: 1. Mild central pulmonary vascular congestion without overt edema. 2. Left basilar linear densities favor subsegmental atelectasis or scarring. ACT 112: Negative or not required by law. Electronically signed by: Surinder Dey M.D. 10/24/2021 8:49 AM Dictated:10/24/2148 Transcribed: 10/24/[address] DOSE: 1075.84 mGy.cm HISTORY: Trauma TECHNIQUE: Multiaxial CT images of the head were performed without the use of intravenous contrast. Automated exposure control was utilized for this study. A dose lowering technique was utilized adhering to the principles of ALARA. Comparison: None. Findings: The paranasal sinuses and mastoid air cells are clear. The calvarium and skull base are intact. The ventricles and sulci are within normal limits. There is no mass, hematoma, midline shift, or acute infarct. Impression: No acute intracranial abnormality. ACT 112: Negative or not required by law. Electronically signed by: Surinder Dey M.D. 10/24/2021 7:05 AM Dictated:10/24/21703 Transcribed: 10/24/[address] DOSE: HISTORY: Trauma TECHNIQUE: Multiaxial CT images of the cervical spine were performed and reformatted in the sagittal and coronal plane without the use of contrast. A dose lowering technique was utilized adhering to the principles of ALARA. COMPARISON: None. FINDINGS: No fractures. No subluxation. Prevertebral soft tissues and the C1-C2 interval are intact. No pneumothorax. Severe degenerative disc disease at C5-C6. IMPRESSION: No fractures within the cervical spine. ACT 112: Negative or not required by law. Electronically signed by: Surinder Dey M.D. 10/24/2021 7:11 AM Dictated:10/24/21708 Transcribed: 10/24/21708 Hospital Course (1) Alcohol abuse: (2) Alcohol intoxication: 71 years old male was brought by police after found with alcohol intoxication. Alcohol level 300 on admission Pt said that he has been drinking about 2 bottle of whiskey daily Denies any history of DT and alcohol withdrawal in the past Currently on Gabapentin and Ativan for alcohol withdrawal protocol Counseling on alcohol cessation Continue thiamine and folic acid Continue monitor closely for DT Consider inpatient alcohol rehab- he would like to go home first referral placed for inpatient rehab- for support if needed case management gave him resources about inpatient and outpatient alcohol rehab treatment Hypoxia Possible acute on chronic HFpEF. Chest x-ray, possible mild congestion. Echo showed no LV wall motion abnormality with ejection fraction 60 to 65% Received lasix 40mg IV Continue home lasix dose 80mg BID Clinically improved significantly Left foot cellulitis. WBC within normal limit On Rocephin, will transition to cefdinir for an additional 5 days Cardiomyopathy Biventricular ICD placement Continue coumadin, INR 1.6 will give coumadin 6 mg today Continue monitor PT/INR DM type 2 Most recent hba1c 6.3 Continue to hold PO metformin Continue insulin sliding scale Continue monitor BS COPD ANGELICA Continue Cpap at night HTN Continue Losartan BP stable DVT px on coumadin Code status Full code Total Time Total Time Spent Total Time Spent (In Minutes): 35 minutes Discharge Plan Discharge Items Patient Disposition: Home - Self-Care Reason For Visit: ALCOHOLISM, FALL Discharge Diagnosis: Alcohol abuse: Alcohol intoxication: Hypoxia Left foot erythema Cardiomyopathy Diabetes type 2 COPD Obstructive sleep apnea Hypertension Condition on Discharge: Fair Activity: Resume your previous activity Non-emergency contact: Primary Care Provider Call non-emergency contact if: you have any medication questions Follow-up/Referrals: Konrad Reinoso MD [Primary Care Provider] - Diet: Carb Consistent or DM2 Addtl Attending Provider Instructions: Follow up with your primary care provider within 1 week Follow up with the coumadin clinic to monitor your PT/INR Follow up with the wound care clinic Consider inpatient or outpatient alcohol rehab treatment Counseling on alcohol cessation Fall precaution Seek medical attention if you develop any alcohol withdrawal symptoms Pending Studies at Discharge: No Stand-Alone Forms: [employer], Smoking Cessation Medications and DC Order Prescriptions: New cefdinir 300 mg capsule 300 mg PO BID 5 Days Qty: 10 RF: 0 Continued tramadol 50 mg tablet 50 mg PO Q8H PRN (Reason: Pain, Severe) RF: 0 Trelegy Ellipta 200-62.5-25 mcg blister with device 1 inh inhalation DAILY RF: 0 silver sulfadiazine 1 % cream 1 applic topical DAILY RF: 0 (DME) BiPap Machine Misc See Rx Instructions .ROUTE RF: 0 furosemide 40 mg tablet 80 mg PO BID RF: 0 carvedilol 6.25 mg Tablet 6.25 mg PO BIDM RF: 0 meloxicam 15 mg Tablet 15 mg PO DAILY PRN (Reason: Pain) RF: 0 allopurinol 100 mg tablet 100 mg PO Q8H RF: 0 warfarin 2 mg Tablet See Rx Instructions .ROUTE .COMPLEX RF: 0 gabapentin 100 mg Capsule 200 mg PO TID RF: 0 albuterol sulfate 90 mcg/actuation Hfa Aerosol Inhaler 2 puff INHALATION Q6H PRN (Reason: Shortness Of Breath Or Wheezing) RF: 0 metformin 500 mg tablet extended release 24 hr 500 mg PO BID RF: 0 rosuvastatin 20 mg tablet 20 mg PO DAILY RF: 0 guaifenesin [Mucinex] 600 mg Tablet Extended Release 12hr 600 mg PO Q12H RF: 0 losartan 50 mg Tablet 50 mg PO DAILY RF: 0 sennosides [senna] 8.6 mg Tablet 8.6 mg PO BID RF: 0 albuterol sulfate 2.5 mg /3 mL (0.083 %) Solution For Nebulization 2.5 mg INHALATION Q4H PRN (Reason: Wheezing) RF: 0 triamcinolone acetonide 0.1 % Cream 1 applic TOPICAL BID PRN (Reason: Skin Irritation) RF: 0 omeprazole 20 mg Capsule,Delayed Release(Dr/Ec) 20 mg PO DAILYBB RF: 0 montelukast 10 mg Tablet 10 mg PO HS RF: 0 fluticasone propionate 50 mcg/actuation [place],Suspension 2 spray INTRANASAL DAILY RF: 0 vitamin B complex Capsule 1 cap PO DAILY RF: 0 eplerenone 25 mg Tablet 25 mg PO DAILY RF: 0 Eucerin Cream 1 applic TOPICAL DAILY PRN (Reason: Rash) RF: 0 magnesium oxide 400 mg magnesium Capsule 400 mg PO DAILY RF: 0 Discharge Orders: Discharge Order (Routine); Ordered 10/26/21 Ordered By: Don Trotter/Other Patient Handouts: Managing Type 2 Diabetes, Special Foot Care for Diabetes Admission Data Admit Date/Time: 10/24/21 01:45 Attending Provider: Don Singh Admit Provider: Philip Washington Primary Care Provider: Konrad Reinoso Other Providers: Philip Washington ; Dean Mccallum Other Interventions: Discharge Summary Assessment (RN) Last Done: 10/26/21 18:08
[2021-10-27] MEDS ORDERED: GABAPENTIN 600 MG TAB PO SCH (18:00)
== END 2021-10-26 18:15 | disposition home or self-care (01) | DRG 896 ==
LOC: ED 22:44 → SUATTDRO 10-24 01:45 → 2N 10-24 01:45
DX: E78.5 Hyperlipidemia, unspecified; I42.8 Other cardiomyopathies; G47.33 Obstructive sleep apnea (adult) (pediatric); Z20.822 Contact with and (suspected) exposure to COVID-19; Z87.891 Personal history of nicotine dependence; Z79.899 Other long term (current) drug therapy; K21.9 Gastro-esophageal reflux disease without esophagitis; Y90.8 Blood alcohol level of 240 mg/100 ml or more; E78.00 Pure hypercholesterolemia, unspecified; Z79.01 Long term (current) use of anticoagulants; R09.02 Hypoxemia; I50.33 Acute on chronic diastolic (congestive) heart failure; I11.0 Hypertensive heart disease with heart failure; Z91.81 History of falling; Z95.810 Presence of automatic (implantable) cardiac defibrillator; Z86.16 Personal history of COVID-19; G89.29 Other chronic pain; Z88.1 Allergy status to other antibiotic agents; E11.42 Type 2 diabetes mellitus with diabetic polyneuropathy; M10.9 Gout, unspecified; Z79.1 Long term (current) use of non-steroidal anti-inflammatories (NSAID); L03.116 Cellulitis of left lower limb; J44.9 Chronic obstructive pulmonary disease, unspecified; Z79.51 Long term (current) use of inhaled steroids; F10.229 Alcohol dependence with intoxication, unspecified; M54.9 Dorsalgia, unspecified

== ENCOUNTER 2021-12-21 11:20 | Inpatient (IN) ==
--- NOTE | 2021-12-21 11:40 | Emergency Department Note ---
Impression & Plan Acute renal failure (ARF), Anemia ED Provider Note NAME: BREEZY COLIN AGE: 71 SEX: M : 1950 ARRIVES VIA: Walk-In INFORMANT: Patient, ED PROVIDER(S): Yomi Rao MD Chief Complaint: Outpatient referral, abnormal kidney function HPI: Patient reportedly presents today due to concern acute kidney injury versus renal failure. The patient has been on cefepime IV through PICC line for approximate the last 3 weeks secondary to an issue of a postsurgical infection of the left foot after having surgery back in March. Patient states that since that time he had issues with wound healing and since then he has had procedures to remove all the prior pins that were placed at that time. Patient denies any fevers or chills. The patient was seen in the outpatient setting and had routine blood work completed yesterday through [facility] and was called today to say that it is BUN/creatinine were elevated at 60 and 3. Patient states that he has had some looser stools but denies any diarrhea or vomiting. Patient has some chronic issues with associated with the left foot but nothing acute. Patient denies any recent alcohol use in the last 8 weeks. Patient does not tobacco or drugs. ROS: See HPI for pertinent positives and negatives. A total of 10 systems were reviewed and otherwise negative. Past medical history: See below Surgical history: See below Social history: See below Physical Exam: GENERAL: NAD, wearing a mask, non-toxic. EYE EXAM: Normal conjunctiva. PERRL, no anisocoria and EOM's grossly intact w/o pain. OROPHARYNX: Moist mucus membranes. Grossly normal dentition. NECK: Supple, no nuchal rigidity, no adenopathy, non-tender. No signs of meningismus. LUNGS: Clear to auscultation. Normal chest wall mechanics. HEART: NSR, no MRG. ABDOMEN: Abdomen soft, non-tender, normo-active bowel sounds, no masses, no rebound or guarding. BACK: No CVA TTP. SKIN: No rashes and no bruising. UPPER EXTREMITIES: Upper extremities are grossly normal. LOWER EXTREMITIES: Left foot with an Fady wrap. NEURO EXAM: A&O x3, cranial nerves II-XII grossly intact, normal speech, moves all 4 extremities on command w/o issue. Differential diagnoses: Infection, dehydration, metabolic abnormality, hypo/hyperglycemia, electrolyte disturbance, anemia, hypoxia, cardiac sources, intracerebral event, toxicologic, neurologic, as well as other pathologies. Course: Patient was seen and evaluated the bedside. Full history physical exam was performed. Imaging Studies: See Below Cardiac monitoring: An order was placed for continuous cardiac monitoring. The monitor shows a rate of 82 with sinus rhythm. MDM: Patient was seen due to concern for abnormal kidney function which was reported during yesterday's outpatient blood work. The patient denies any nausea vomiting diarrhea abdominal pains or decreased p.o. intake. Patient was ordered IV fluids blood work and CK. Patient is a normal white count with a hemoglobin 11 with mild anemia. Patient's anemia is relatively chronic. The patient's most recent blood job was on the fifth and showed a hemoglobin of 12. The patient's kidney function does show an elevated BUN/creatinine ratio of 81 and 4.1 respectively. Total CK is not elevated. Urinalysis does not show evidence of obvious infection. Patient has no abdominal or flank pain. I did go over the findings with the patient and the patient is agreeable for inpatient stay at this time. I did speak with the on-call hospitalist Dr. Camacho and the patient was admitted to the [facility] medicine service. Past Med/Surg History Medical History Alcohol intoxication Asthma CAD (coronary artery disease) Cardiac defibrillator in place Cellulitis of foot Centrilobular emphysema COPD (chronic obstructive pulmonary disease) COVID-19 Elevated PSA Fall Gastroesophageal reflux disease without esophagitis Heart failure Hilar enlargement History of tobacco use Idiopathic cardiomyopathy Kienbock's disease of adults ANGELICA treated with BiPAP Peripheral neuropathy Presence of permanent cardiac pacemaker Prostate nodule Pure hypercholesterolemia Swelling, mass, or lump in chest 04/16/10 non diagnostic bronchoscopy Type 2 diabetes mellitus Surgical History History of permanent cardiac pacemaker placement Hx of colonoscopy Hx of prostate biopsy Status post left foot surgery Social History Smoking Status: Former smoker Number of Years Since Quit: 14; Second Hand Exposure: No; Hx Alcohol Use: Yes Alcohol type: beer and hard liquor Hx Substance Use: No Preferred Language: Thai Communication Ability: Effective Visual Impairment: Limited Hearing Ability: Hard of Hearing Underground Supervisor Required: No Beliefs That Will Affect Care: None Current Living Situation: Alone current occupational status: retired Feels Safe at Home: Yes Physical Activity Frequency Comment: has not been able to walk while recovering from surgery Assistive Devices: Cane and Walker Allergies Allergies Allergy/AdvReac Type Severity Reaction Status Date / Time doxycycline AdvReac Intermediate DRY HEAVES Verified 10/23/21 23:17 PER [facility]. Home Meds Home Medications Medication Instructions Recorded Confirmed albuterol sulfate 2.5 mg INHALATION Q4H PRN 02/02/21 12/21/21 eplerenone 25 mg tablet 25 mg PO QAM 02/02/21 12/21/21 fluticasone propionate 50 2 spray INTRANASAL BID 02/02/21 12/21/21 mcg/actuation nasal spray,suspension lanolin alcohols-mineral 1 applic TOPICAL DAILY PRN 02/02/21 12/21/21 oil-w.petrolatum-ceresin topical cream (Eucerin) losartan 50 mg tablet 50 mg PO QAM 02/02/21 12/21/21 magnesium oxide 400 mg PO HS 02/02/21 12/21/21 montelukast 10 mg tablet 10 mg PO HS 02/02/21 12/21/21 omeprazole 20 mg capsule,delayed 20 mg PO DAILYBB 02/02/21 12/21/21 release sennosides 8.6 mg tablet (senna) 8.6 mg PO HS 02/02/21 12/21/21 vitamin B complex 1 cap PO QAM 02/02/21 12/21/21 BiPap Machine 07/01/21 07/01/21 fluticasone fur. 200 mcg-umeclid 1 inh INHALATION QAM 07/01/21 12/21/21 62.5 mcg-vilant 25 mcg inhalat.powder (Trelegy Ellipta) albuterol sulfate 90 mcg/actuation 2 puff INHALATION Q6H PRN 10/23/21 12/21/21 aerosol inhaler allopurinol 100 mg tablet 100 mg PO Q8H 10/23/21 12/21/21 carvedilol 6.25 mg tablet 6.25 mg PO BIDM 10/23/21 12/21/21 furosemide 40 mg tablet 80 mg PO BID 10/23/21 12/21/21 gabapentin 100 mg capsule 200 mg PO TID 10/23/21 12/21/21 guaifenesin 600 mg tablet, 600 mg PO HS 10/23/21 12/21/21 extended release 12 hr (Mucinex) meloxicam 15 mg tablet 15 mg PO DAILY PRN 10/23/21 12/21/21 metformin 500 mg tablet,extended 500 mg PO BID 10/23/21 12/21/21 release 24 hr rosuvastatin 20 mg tablet 20 mg PO HS 10/23/21 12/21/21 warfarin 2 mg tablet See Rx Instructions .ROUTE .COMPLEX 10/23/21 12/21/21 docusate sodium 100 mg capsule 100 mg PO QDD 12/21/21 12/21/21 (Colace) phenylephrine-guaifenesin 2.5 20 ml PO QAM 12/21/21 12/21/21 mg-100 mg/5 mL oral liquid Results & Data (ED) Vital Signs Vital Signs - 24 hr 12/21/21 11:27 12/21/21 12:27 12/21/21 12:30 Temperature 36.5 C Temperature Source Temporal Artery Scan Pulse Rate 70 66 64 Pulse Rate [Apical] Pulse Rate from SpO2 Sensor 65 64 Respiratory Rate 18 15 22 Respiratory Effort / Characteristics Respiratory Depth Respiratory Pattern Blood Pressure 131/67 Blood Pressure [Right Arm] Blood Pressure Mean 88 Blood Pressure Mean [Right Arm] Blood Pressure Position Sitting Pulse Oximetry 94 96 96 Oxygen Delivery Method Room Air Sepsis Recent Fever Within 48 Hours No Sepsis New/Unexplained Change in Mental Status No Sepsis Action Taken by Nursing No Action Required 12/21/21 12:31 12/21/21 12:48 12/21/21 13:00 Temperature Temperature Source Pulse Rate 62 63 63 Pulse Rate [Apical] 72 Pulse Rate from SpO2 Sensor 63 62 Respiratory Rate 19 20 17 Respiratory Effort / Characteristics Non-Labored Spontaneous Respiratory Depth Normal Respiratory Pattern Regular Blood Pressure 122/68 123/70 Blood Pressure [Right Arm] 122/68 Blood Pressure Mean 86 87 Blood Pressure Mean [Right Arm] 86 Blood Pressure Position Pulse Oximetry 96 96 96 Oxygen Delivery Method Room Air Sepsis Recent Fever Within 48 Hours Sepsis New/Unexplained Change in Mental Status Sepsis Action Taken by Nursing 12/21/21 13:30 12/21/21 14:00 12/21/21 14:30 Temperature Temperature Source Pulse Rate 75 67 68 Pulse Rate [Apical] Pulse Rate from SpO2 Sensor 77 71 69 Respiratory Rate 16 17 23 Respiratory Effort / Characteristics Respiratory Depth Respiratory Pattern Blood Pressure 138/73 147/75 H Blood Pressure [Right Arm] Blood Pressure Mean 94 99 Blood Pressure Mean [Right Arm] Blood Pressure Position Pulse Oximetry 98 97 97 Oxygen Delivery Method Sepsis Recent Fever Within 48 Hours Sepsis New/Unexplained Change in Mental Status Sepsis Action Taken by Nursing 12/21/21 15:00 12/21/21 15:30 12/21/21 16:00 Temperature Temperature Source Pulse Rate 70 85 83 Pulse Rate [Apical] Pulse Rate from SpO2 Sensor 77 Respiratory Rate 14 23 22 Respiratory Effort / Characteristics Respiratory Depth Respiratory Pattern Blood Pressure 132/79 128/82 Blood Pressure [Right Arm] Blood Pressure Mean 96 97 Blood Pressure Mean [Right Arm] Blood Pressure Position Pulse Oximetry 98 97 Oxygen Delivery Method Sepsis Recent Fever Within 48 Hours Sepsis New/Unexplained Change in Mental Status Sepsis Action Taken by Half-Way Medications Current Medication List: was personally reviewed by me Laboratory Data Attestation: I reviewed the patient's lab results. Result diagrams: 12/21/21 12:46 12/21/21 12:46 Lab Results 12/21/21 12/21/21 12/21/21 Range/Units 12:46 12:46 12:46 WBC 7.06 (4.8-10.8) K/ul RBC 3.69 L (4.63-6.08) M/uL Hgb 11.2 L (14.0-18.0) g/dl Hct 33.4 L (40.1-51.0) % MCV 90.5 (80.0-100.0) fL MCH 30.4 (25.0-34.0) pg MCHC 33.5 (32.0-36.0) g/dL RDW Std Deviation 45.4 (36.4-46.3) fL RDW Coeff of Anne[place]Marie 13.7 (11.5-14.5) % Plt Count 139 (130-400) K/uL MPV 11.8 (9.4-12.4) fL Immature Gran % (Auto) 0.3 % Neut % (Auto) 60.2 % Lymph % (Auto) 21.1 % [place] % (Auto) 14.0 % Eos % (Auto) 3.4 % Baso % (Auto) 1.0 % Neut # (Auto) 4.25 (1.4-6.5) K/uL Lymph # (Auto) 1.49 (1.2-3.4) K/uL [place] # (Auto) 0.99 H (0.24-0.82) K/uL Eos # (Auto) 0.24 (0-0.50) K/uL Baso # (Auto) 0.07 (0-0.2) K/uL Immature Gran # (Auto) 0.02 (0.00-0.02) K/uL Sodium 137 (136-145) mmol/L Potassium 4.0 (3.5-5.1) mmol/L Chloride 104 (98-107) mmol/L Carbon Dioxide 23 (21-32) mmol/L Anion Gap 10 (3-11) BUN 81 H (6-23) mg/dl Creatinine 4.15 H (0.6-1.4) mg/dl Est Cr Clr Drug Dosing Not Reportable Est GFR ( Amer) 15.7 ml/min Est GFR (Non-Af Amer) 13.6 ml/min BUN/Creatinine Ratio 19.5 (10-20) Glucose 98 (70-99(Fasting)) mg/dl Calcium 8.8 (8.5-10.1) mg/dl Total Bilirubin 0.5 (0.2-1.0) mg/dl AST 21 (13-39) U/L ALT 15 (7-52) U/L Alkaline Phosphatase 95 (34-104) U/L Total Creatine Kinase 25 L (30-223) U/L Total Protein 7.3 (6.0-8.3) gm/dl Albumin 3.6 (3.4-5.0) gm/dl Globulin 3.7 (2.5-4.0) gm/dl Albumin/Globulin Ratio 1.0 (0.9-2) TSH 0.711 (0.300-4.500) uIu/ml Urine Color Urine Appearance (Clear) Urine pH (4.5-7.5) Ur Specific [place] (1.000-1.030) Urine Protein (Negative) Urine Glucose (UA) (Negative) Urine Ketones (Negative) Urine Blood (Negative) Urine Nitrite (Negative) Urine Bilirubin (Negative) Urine Urobilinogen (Negative) Ur Leukocyte Esterase (Negative) Urine WBC (Auto) (0-5) /hpf Urine RBC (Auto) (0-4) /hpf U Hyaline Cast (Auto) (0-5) /lpf U Epithel Cells (Auto) (0-5) /lpf Urine Bacteria (Auto) (Negative) Urine Yeast SARS-CoV-2, RNA, NAAT (NEGATIVE) 12/21/21 12/21/21 Range/Units 14:22 15:20 WBC (4.8-10.8) K/ul RBC (4.63-6.08) M/uL Hgb (14.0-18.0) g/dl Hct (40.1-51.0) % MCV (80.0-100.0) fL MCH (25.0-34.0) pg MCHC (32.0-36.0) g/dL RDW Std Deviation (36.4-46.3) fL RDW Coeff of Anne-Marie (11.5-14.5) % Plt Count (130-400) K/uL MPV (9.4-12.4) fL Immature Gran % (Auto) % Neut % (Auto) % Lymph % (Auto) % [place] % (Auto) % Eos % (Auto) % Baso % (Auto) % Neut # (Auto) (1.4-6.5) K/uL Lymph # (Auto) (1.2-3.4) K/uL [place] # (Auto) (0.24-0.82) K/uL Eos # (Auto) (0-0.50) K/uL Baso # (Auto) (0-0.2) K/uL Immature Gran # (Auto) (0.00-0.02) K/uL Sodium (136-145) mmol/L Potassium (3.5-5.1) mmol/L Chloride (98-107) mmol/L Carbon Dioxide (21-32) mmol/L Anion Gap (3-11) BUN (6-23) mg/dl Creatinine (0.6-1.4) mg/dl Est Cr Clr Drug Dosing Est GFR ( Amer) ml/min Est GFR (Non-Af Amer) ml/min BUN/Creatinine Ratio (10-20) Glucose (70-99(Fasting)) mg/dl Calcium (8.5-10.1) mg/dl Total Bilirubin (0.2-1.0) mg/dl AST (13-39) U/L ALT (7-52) U/L Alkaline Phosphatase (34-104) U/L Total Creatine Kinase (30-223) U/L Total Protein (6.0-8.3) gm/dl Albumin (3.4-5.0) gm/dl Globulin (2.5-4.0) gm/dl Albumin/Globulin Ratio (0.9-2) TSH (0.300-4.500) uIu/ml Urine Color Yellow Urine Appearance Clear (Clear) Urine pH 5.5 (4.5-7.5) Ur Specific [place] 1.009 (1.000-1.030) Urine Protein 1+ H (Negative) Urine Glucose (UA) Negative (Negative) Urine Ketones Negative (Negative) Urine Blood Trace H (Negative) Urine Nitrite Negative (Negative) Urine Bilirubin Negative (Negative) Urine Urobilinogen Negative (Negative) Ur Leukocyte Esterase Negative (Negative) Urine WBC (Auto) 1-5 (0-5) /hpf Urine RBC (Auto) 0-4 (0-4) /hpf U Hyaline Cast (Auto) 1-5 (0-5) /lpf U Epithel Cells (Auto) 10-20 H (0-5) /lpf Urine Bacteria (Auto) Negative (Negative) Urine Yeast Not Reportable SARS-CoV-2, RNA, NAAT NEGATIVE (NEGATIVE) Administered Medications Discontinued Medications Sodium Chloride (Nss 1000ml) 1,000 mls @ 999 mls/hr IV .Q1H1M SHABBIR Stop: 12/21/21 13:00 Last Infusion: 12/21/21 13:35 Dose: 0 mls/hr Documented by: [id number] Admin: 12/21/21 12:32 Dose: 999 mls/hr Documented by: [id number] Cefepime HCl (Maxipime) 20 mls @ 5 mls/min IV ONE ONE Stop: 12/21/21 15:03 Last Admin: 12/21/21 15:14 Dose: 5 mls/min Documented by: [id number] Discharge Plan Visit Data Chief Complaint: Abnormal Labs/Diagnostic Testing Stated Complaint: ABNORMAL LABS, DEHYDRATED ED Provider: Yomi Rao Discharge Problem: Acute renal failure (ARF), Anemia Patient Disposition: Admitted As Inpatient Discharge Instructions Interventions: ED Discharge Assessment Last Done: 12/21/21 16:17 Forms Stand Alone Forms: My [facility] Prescriptions Prescriptions: No Action Trelegy Ellipta 200-62.5-25 mcg blister with device 1 inh inhalation QAM RF: 0 (DME) BiPap Machine Misc See Rx Instructions .ROUTE RF: 0 furosemide 40 mg tablet 80 mg PO BID RF: 0 carvedilol 6.25 mg Tablet 6.25 mg PO BIDM RF: 0 meloxicam 15 mg Tablet 15 mg PO DAILY PRN (Reason: Pain) RF: 0 allopurinol 100 mg tablet 100 mg PO Q8H RF: 0 warfarin 2 mg Tablet See Rx Instructions .ROUTE .COMPLEX RF: 0 gabapentin 100 mg Capsule 200 mg PO TID RF: 0 albuterol sulfate 90 mcg/actuation Hfa Aerosol Inhaler 2 puff INHALATION Q6H PRN (Reason: Shortness Of Breath Or Wheezing) RF: 0 metformin 500 mg tablet extended release 24 hr 500 mg PO BID RF: 0 rosuvastatin 20 mg tablet 20 mg PO HS RF: 0 guaifenesin [Mucinex] 600 mg Tablet Extended Release 12hr 600 mg PO HS RF: 0 docusate sodium [Colace] 100 mg Capsule 100 mg PO QDD RF: 0 Mucinex Cold 2.5-100 mg/5 mL Liquid 20 ml PO QAM RF: 0 losartan 50 mg Tablet 50 mg PO QAM RF: 0 sennosides [senna] 8.6 mg Tablet 8.6 mg PO HS RF: 0 albuterol sulfate 2.5 mg /3 mL (0.083 %) Solution For Nebulization 2.5 mg INHALATION Q4H PRN (Reason: Wheezing) RF: 0 omeprazole 20 mg Capsule,Delayed Release(Dr/Ec) 20 mg PO DAILYBB RF: 0 montelukast 10 mg Tablet 10 mg PO HS RF: 0 fluticasone propionate 50 mcg/actuation [place],Suspension 2 spray INTRANASAL BID RF: 0 vitamin B complex Capsule 1 cap PO QAM RF: 0 eplerenone 25 mg Tablet 25 mg PO QAM RF: 0 Eucerin Cream 1 applic TOPICAL DAILY PRN (Reason: Rash) RF: 0 magnesium oxide 400 mg magnesium Capsule 400 mg PO HS RF: 0 Referrals Referrals: Konrad Reinoso MD [Primary Care Provider] - Discharge Problem: Acute renal failure (ARF) Qualifiers: Acute renal failure type: unspecified Qualified Code(s): N17.9 - Acute kidney failure, unspecified Anemia Qualifiers: Anemia type: unspecified type Qualified Code(s): D64.9 - Anemia, unspecified
[2021-12-21] MEDS ORDERED: SODIUM CHLORIDE 0.9% 1000ML 1,000 ML IV SCH (12:00)
[2021-12-21 12:59] LABS: Basophils # (auto) 0.07 K/uL (0-0.2); Eosinophils # (auto) 0.24 K/uL (0-0.50); Eosinophils % (auto) 3.4 %; Hematocrit (blood only) 33.4 % (40.1-51.0); Hemoglobin 11.2 g/dl (14.0-18.0); Immature Granulocytes # (auto) 0.02 K/uL (0.00-0.02); Immature Granulocytes % (auto) 0.3 %; Lymphocytes # (auto) 1.49 K/uL (1.2-3.4); Lymphocytes % (auto) 21.1 %; Mean Corpuscular Hemoglobin 30.4 pg (25.0-34.0); Mean Corpuscular Hgb Conc 33.5 g/dL (32.0-36.0); Mean Corpuscular Volume 90.5 fL (80.0-100.0); Mean Platelet Volume 11.8 fL (9.4-12.4); Monocytes # (auto) 0.99 K/uL (0.24-0.82); Neutrophils # (auto) 4.25 K/uL (1.4-6.5); Neutrophils % (auto) 60.2 %; Platelet Count 139 K/uL (130-400); RDW Coefficient of Variation 13.7 % (11.5-14.5); RDW Standard Deviation 45.4 fL (36.4-46.3); Red Blood Count 3.69 M/uL (4.63-6.08); White Blood Count 7.06 K/ul (4.8-10.8)
[2021-12-21 13:23] LABS: Alanine Aminotransferase 15 U/L (7-52); Albumin Level 3.6 gm/dl (3.4-5.0); Alkaline Phosphatase 95 U/L (34-104); Anion Gap 10 (3-11); Aspartate Aminotransferase 21 U/L (13-39); BUN Creatinine Ratio 19.5 (10-20); Bilirubin,Total 0.5 mg/dl (0.2-1.0); Blood Urea Nitrogen 81 mg/dl (6-23); Calcium 8.8 mg/dl (8.5-10.1); Carbon Dioxide 23 mmol/L (21-32); Chloride 104 mmol/L (98-107); Creatine Kinase 25 U/L (30-223); Est GFR (African American) 15.7 ml/min; Est GFR (Non-African American) 13.6 ml/min; Globulin 3.7 gm/dl (2.5-4.0); Glucose 98 mg/dl (70-99(Fasting)); Sodium 137 mmol/L (136-145); Total Protein 7.3 gm/dl (6.0-8.3)
--- NOTE | 2021-12-21 13:57 | History & Physical Report ---
Date of Service December 21, 2021 Assessment & Plan (1) Acute kidney injury: Plan: MAGDY -Unclear etiology, suspect ATN from being on cefepime and multiple nephrotoxic agents -will send urine studies, check renal/bladder ultrasound -gentle IVF. NSS at 100cc/hr. Repeat BMP tomorrow -consult Nephrology Infected left foot hardware -continue cefepime (renally dosed), last day 12/31/21. Via right arm PICC -will ask for podiatry consult while here -Non weight bearing left foot Anticoagulated on Coumadin -Unclear indication, patient is uncertain -check INR stat - home dose: 5mg /Monday, 4mg other days. [id number] -hold metformin -correctional scale insulin ANGELICA on BIPAP Reactive Airway disease -patient declines bringing his home BIPAP, patient requesting to use night time oxygen while here. Will also order BIPAP QHS in event he wants to use it here -continue home inhaler Former alcohol abuse -reports sobriety for past 8 weeks DVT ppx -on coumadin Dispo -from home. Admit to telemetry History of Present Illness Chief Complaint: abnormal outpatient labwork Primary Care Provider: Konrad Reinoso MD Mr Juan Carlos Hernandez is a 71 year old man with history of alcohol abuse (daily whiskey and beer), recent left foot infection, non insulin dependent diabetes, hypertension, cardiomyopathy with recovered EF to 60%, ANGELICA on BIPAP sent in today for outpatient labwork revealing Cr 4.1. He was recently admitted at [facility] for left foot hardware infection requiring hardware removal and he has been cefepime since then via PICC (estimated last day of antibiotic 12/31/21). No recent fever or chills, no nausea/vomiting, one episode loose stool this morning. Denies alcohol use except this past Monday he had on drink, but otherwise reports he has been sober since October 2021. Appetite and oral intake has been normal. Allergies Allergy/AdvReac Type Severity Reaction Status Date / Time doxycycline AdvReac Intermediate DRY HEAVES Verified 10/23/21 23:17 PER [facility]. Home Medications Medication Instructions Recorded Confirmed Type albuterol sulfate 2.5 mg INHALATION Q4H PRN 02/02/21 10/23/21 History eplerenone 25 mg tablet 25 mg PO DAILY 02/02/21 10/23/21 History fluticasone propionate 50 2 spray INTRANASAL DAILY 02/02/21 10/23/21 History mcg/actuation nasal spray,suspension lanolin alcohols-mineral 1 applic TOPICAL DAILY PRN 02/02/21 10/23/21 History oil-w.petrolatum-ceresin topical cream (Eucerin) losartan 50 mg tablet 50 mg PO DAILY 02/02/21 10/23/21 History magnesium oxide 400 mg PO DAILY 02/02/21 10/23/21 History montelukast 10 mg tablet 10 mg PO HS 02/02/21 10/23/21 History omeprazole 20 mg capsule,delayed 20 mg PO DAILYBB 02/02/21 10/23/21 History release sennosides 8.6 mg tablet (senna) 8.6 mg PO BID 02/02/21 10/23/21 History triamcinolone acetonide 0.1 % 1 applic TOPICAL BID PRN 02/02/21 10/23/21 History topical cream vitamin B complex 1 cap PO DAILY 02/02/21 10/23/21 History BiPap Machine 07/01/21 07/01/21 History fluticasone fur. 200 mcg-umeclid 1 inh INHALATION DAILY 07/01/21 10/23/21 History 62.5 mcg-vilant 25 mcg inhalat.powder (Trelegy Ellipta) silver sulfadiazine 1 % topical 1 applic TOPICAL DAILY 07/01/21 10/23/21 History cream tramadol 50 mg tablet 50 mg PO Q8H PRN 07/01/21 10/23/21 History albuterol sulfate 90 mcg/actuation 2 puff INHALATION Q6H PRN 10/23/21 10/23/21 History aerosol inhaler allopurinol 100 mg tablet 100 mg PO Q8H 10/23/21 10/23/21 History carvedilol 6.25 mg tablet 6.25 mg PO BIDM 10/23/21 10/23/21 History furosemide 40 mg tablet 80 mg PO BID 10/23/21 10/23/21 History gabapentin 100 mg capsule 200 mg PO TID 10/23/21 10/23/21 History guaifenesin 600 mg tablet, 600 mg PO Q12H 10/23/21 10/23/21 History extended release 12 hr (Mucinex) meloxicam 15 mg tablet 15 mg PO DAILY PRN 10/23/21 10/23/21 History metformin 500 mg tablet,extended 500 mg PO BID 10/23/21 10/23/21 History release 24 hr rosuvastatin 20 mg tablet 20 mg PO DAILY 10/23/21 10/23/21 History warfarin 2 mg tablet See Rx Instructions .ROUTE .COMPLEX 10/23/21 10/23/21 History Past Med/Surg History Medical History Alcohol intoxication Asthma CAD (coronary artery disease) Cardiac defibrillator in place Cellulitis of foot Centrilobular emphysema COPD (chronic obstructive pulmonary disease) COVID-19 Elevated PSA Fall Gastroesophageal reflux disease without esophagitis Heart failure Hilar enlargement History of tobacco use Idiopathic cardiomyopathy Kienbock's disease of adults ANGELICA treated with BiPAP Peripheral neuropathy Presence of permanent cardiac pacemaker Prostate nodule Pure hypercholesterolemia Swelling, mass, or lump in chest 04/16/10 non diagnostic bronchoscopy Type 2 diabetes mellitus Surgical History History of permanent cardiac pacemaker placement Hx of colonoscopy Hx of prostate biopsy Status post left foot surgery Social History Smoking Status: Former smoker Number of Years Since Quit: 14; Second Hand Exposure: No; Hx Alcohol Use: Yes Alcohol type: beer and hard liquor Hx Substance Use: No Preferred Language: Polish Communication Ability: Effective Visual Impairment: Limited Hearing Ability: Hard of Hearing Information Technology Manager Required: No Beliefs That Will Affect Care: None Current Living Situation: Alone current occupational status: retired Feels Safe at Home: Yes Physical Activity Frequency Comment: has not been able to walk while recovering from surgery Assistive Devices: Cane and Walker Review of Systems Review of Systems: as above in HPI, remaining ROS otherwise negative Physical Exam Physical Exam: Appears well, no acute distress, non toxic ENMT: normocephalic, atraumatic, mucous membrane moist Respiratory: breathing comfortably on room air, no wheezing/rhonchi/rales Cardiovascular: regular rate and rhythm, no murmurs/rubs/gallops Gastrointestinal (Abdomen): soft, non tender, non distended Musculoskeletal: no edema, left foot in dressing, no cyanosis or clubbing Skin: no rash, no bruising, no ulcer. Known left foot wound Neurologic: awake, alert, spontaneously moving extremities Psychiatric: affect normal, speech linear, non pressured Results & Data Results & Data ([facility]) Vital Signs (Past 12 Hours) Vital Signs Temp Pulse Pulse Resp BP BP Pulse Ox 12/21/21 13:30 75 16 98 12/21/21 13:00 63 17 123/70 96 12/21/21 12:48 63 72 20 122/68 96 12/21/21 12:31 62 19 122/68 96 12/21/21 12:30 64 22 96 12/21/21 12:27 66 15 96 12/21/21 11:27 36.5 C 70 18 131/67 94 Laboratory Results Short CBC 12/21/21 Range/Units 12:46 WBC 7.06 (4.8-10.8) K/ul Hgb 11.2 L (14.0-18.0) g/dl Hct 33.4 L (40.1-51.0) % Plt Count 139 (130-400) K/uL BMP 12/21/21 12:46 Sodium 137 Potassium 4.0 Chloride 104 Carbon Dioxide 23 BUN 81 H Creatinine 4.15 H Glucose 98 Calcium 8.8 Cardiac Enzymes 12/21/21 Range/Units 12:46 Total Creatine Kinase 25 L (30-223) U/L Liver Function 12/21/21 Range/Units 12:46 Total Bilirubin 0.5 (0.2-1.0) mg/dl AST 21 (13-39) U/L ALT 15 (7-52) U/L Alkaline Phosphatase 95 (34-104) U/L Albumin 3.6 (3.4-5.0) gm/dl Urine 12/21/21 Range/Units 14:22 Urine Color Yellow Urine Appearance Clear (Clear) Urine pH 5.5 (4.5-7.5) Ur Specific [place] 1.009 (1.000-1.030) Urine Protein 1+ H (Negative) Urine Glucose (UA) Negative (Negative)
[2021-12-21 14:49] LABS: Appearance Urine Clear (Clear); Bacteria Urine Automated Negative (Negative); Bilirubin Urine Negative (Negative); Blood Urine Trace (Negative); Color Urine Yellow; Glucose Urine UA Negative (Negative); Ketones Urine Negative (Negative); Leukocyte Esterase Urine Negative (Negative); Nitrite Urine Negative (Negative); Protein Urine 1+ (Negative); RBC Urine Automated 0-4 /hpf (0-4); Specific Gravity Urine 1.009 (1.000-1.030); Urobilinogen Urine Negative (Negative); pH Urine 5.5 (4.5-7.5)
[2021-12-21] MEDS ORDERED: CEFEPIME 20 ML IV ONE (15:00)
[2021-12-21] MEDS ORDERED: ONDANSETRON INJ 2 MG/ML 2 ML VIAL IV PRN (16:36)
[2021-12-21] MEDS ORDERED: ACETAMINOPHEN 325 MG TAB PO PRN (16:36)
[2021-12-21 16:37] LABS: INR 1.5 (0.9-1.1); Prothrombin Time 15.6 Seconds (9.0-12.0)
[2021-12-21 16:47] LABS: Creatinine Urine Random 41.6 mg/dl
[2021-12-21] MEDS: guaiFENesin 600 MG TABCR PO SCH (17:58)
[2021-12-21] MEDS: allopurinoL 100 MG TAB PO SCH ×2 (17:58→21:46)
[2021-12-21] MEDS: carvediloL 6.25 MG TAB PO SCH (17:58)
[2021-12-21] MEDS: SODIUM CHLORIDE 0.9% 1000ML 1,000 ML IV SCH (18:02)
[2021-12-21] MEDS ORDERED: PHARMACY GLYCEMIC MGMT CONSULT PRN (18:32)
[2021-12-21] MEDS: WARFARIN SOD 5 MG TAB PO SCH (18:34)
[2021-12-21] MEDS ORDERED: GLUCAGON FOR INJ 1 MG VIAL IM PRN (19:00)
[2021-12-21] MEDS ORDERED: GLUCOSE 10 TAB/TUBE PO PRN (19:00)
[2021-12-21] MEDS ORDERED: CARBOHYDRATES FOR HYPOGLYCEMIA PO PRN (19:00)
[2021-12-21] MEDS ORDERED: GLUCOSE 40% GEL 15 GM TUBE PO PRN (19:00)
[2021-12-21] MEDS ORDERED: DEXTROSE 50% 50 ML SYRINGE IV PRN (19:00)
--- NOTE | 2021-12-21 19:48 | Ultrasound Report ---
US renal/blad retro comp CLINICAL HISTORY: renal failure. COMPARISON: None. TECHNIQUE: Multiple grayscale and color images of the kidneys and bladder. FINDINGS: Right kidney: The kidney is normal in size and echogenicity. There is no evidence for renal calculus or hydronephrosis. There is no evidence for solid renal mass. There is no evidence for medical renal disease. The kidney measures 12.4 x 6.2 x 7.0 cm. Left kidney: The kidney is normal in size and echogenicity. There is no evidence for renal calculus o r hydronephrosis. There is no evidence for solid renal mass. There is no evidence for medical renal d isease. The kidney measures 13.3 x 7.0 x 6.5 cm. Bladder: Limited images of the bladder demonstrate no gross abnormality. Bilateral ureteral jets are present. IMPRESSION: 1. Negative renal ultrasound. ACT 112: Negative or not required by law. Electronically signed by: Greg Rucker M.D. 12/21/2021 7:46 PM
[2021-12-21] MEDS: MONTELUKAST SODIUM 10 MG TABLET PO SCH (19:57)
[2021-12-21] MEDS: SENNA 8.6 MG TAB PO SCH (19:57)
[2021-12-21] MEDS: GABAPENTIN 100 MG CAP PO SCH (19:57)
[2021-12-21] MEDS: INSULIN ASPART PER UNIT SC SCH (20:23)
[2021-12-22] MEDS: guaiFENesin 600 MG TABCR PO SCH ×2 (05:51→17:03)
[2021-12-22] MEDS: PANTOprazole 40 MG TAB PO SCH (05:52)
[2021-12-22] MEDS: SODIUM CHLORIDE 0.9% 1000ML 1,000 ML IV SCH ×2 (05:52→14:27)
[2021-12-22 06:15] LABS: INR 1.7 (0.9-1.1); Prothrombin Time 17.5 Seconds (9.0-12.0)
[2021-12-22 06:30] LABS: BUN Creatinine Ratio 20.9 (10-20); Calcium 8.3 mg/dl (8.5-10.1); Creatinine Clr Calc Pharmacy 22.8 ml/min; Est GFR (African American) 18.2 ml/min; Est GFR (Non-African American) 15.7 ml/min; Potassium 4.3 mmol/L (3.5-5.1)
[2021-12-22] MEDS: INSULIN ASPART PER UNIT SC SCH ×4 (07:54→20:59)
[2021-12-22] MEDS: CEFEPIME 1,000 MG in SYRINGE 0 ML IV SCH (08:10)
[2021-12-22] MEDS: UMECLIDINIUM/VILANTEROL 62.5/25MCG 7 PUFFS/INHALER INH SCH (08:11)
[2021-12-22] MEDS: FLUTICASONE FUROATE 200MCG 14 PUFFS/INHALER INH SCH (08:11)
[2021-12-22] MEDS: SENNA 8.6 MG TAB PO SCH ×2 (08:11→20:58)
[2021-12-22] MEDS: GABAPENTIN 100 MG CAP PO SCH ×3 (08:11→20:59)
[2021-12-22] MEDS: allopurinoL 100 MG TAB PO SCH ×2 (08:12→17:02)
[2021-12-22] MEDS: FLUTICASONE PROPIONATE NA SPR 16 GM BTL SCH (08:12)
[2021-12-22] MEDS: carvediloL 6.25 MG TAB PO SCH ×2 (08:15→17:04)
[2021-12-22] MEDS: ROSUVASTATIN CALCIUM 20 MG TAB PO SCH (08:16)
[2021-12-22] MEDS: VITAMIN B COMPLEX TAB PO SCH (08:16)
[2021-12-22] MEDS: traMADol HCL 50 MG TABLET PO PRN ×2 (08:27→20:57)
[2021-12-22] MEDS ORDERED: PEDIATRIC DILUENT IV SCH (09:00)
[2021-12-22] MEDS ORDERED: CEFEPIME IV SCH (09:00)
--- NOTE | 2021-12-22 10:43 | Pharmacy Report ---
Pharmacy Glycemic Short Note 2 - Date of Service December 22, 2021 - Glycemic Short BSG Results (Last 24 hours): 12/21/21 12/21/21 12/22/21 12:46 19:54 05:30 Glucose 98 99 POC Glucose 70 12/22/21 07:22 Glucose POC Glucose 119 H OUTPATIENT ANTIDIABETIC REGIMEN: * metformin 500mg BID * A1c: 6.3% 10/24/21 ASSESSMENT: * Patient not hyperglycemic at time of consult. Will continue with a mild/mo derate novolog scale. * Patient is ordered a diet and did eat breakfast * If Bsgs remain stable through the day will likely sing off of consult tomorrow. Of note patient admitted with MAGDY. PLAN FOR INPATIENT GLYCEMIC CONTROL: * Hold outpatient oral diabetes medications * Basal insulin * none * Bolus insulin * NovoLog per scale ACHS or Q6hrs while NPO * Goal Range: Low 110 mg/dL - High 140 mg/dL * Correction Factor: 25 mg/dL/unit * Nutritional / Prandial insulin per carb ratio of 1 unit per 15 grams CHO consumed
--- NOTE | 2021-12-22 11:46 | Consultation Report ---
NEPHROLOGY CONSULTATION NOTE REASON FOR CONSULTATION: Acute renal failure. HISTORY OF PRESENT ILLNESS: The patient is a 71-year-old male with multiple medical problems, but as of October 2021, he had a normal creatinine of less than 1. He was sent over to the hospital yesterday after abnormal outpatient blood work done through his PCP's office. That blood work showed acute clifton al failure. Creatinine on admission was 4.1. Since admission, the patient has received some IV flui d and this morning, creatinine is down to 3.68. His blood pressure is still somewhat low on a relati ve basis. As an outpatient, the patient is on multiple medications impacting renal perfusion includin g eplerenone, Lasix, losartan, meloxicam. However, he is not quite sure whether he takes meloxicam o n a daily basis or as needed. Most likely he said he was taking the last few days. The patient also has a history of alcohol abuse daily, whiskey and beer. He claims his last alcohol intake was on , which would be just two days prior to hospitalization. The patient has had recent complicated issue with left foot infection for which he had surgery done because of the hardware infection requir ing hardware removal. Since then, he has been on cefepime through a PICC line and the last day of an tibiotic is supposed to be December 2021. He is getting care through visiting nurse. For the last few d ays, he did not have any fever, chills, rigors, nausea, vomiting, diarrhea, or really any symptoms as such. However, he still felt that he was not making much urine and felt he was somewhat dehydrated. ALLERGIES: DOXYCYCLINE. MEDICATIONS: Home medication list is very extensive and was reviewed in detail from both home medica tion list as well as current inpatient medication list. Of special interest to nephrology, the patie nt does take Lasix 80 twice daily, metformin twice daily, eplerenone 25 daily, as well as meloxicam. PAST MEDICAL AND SURGICAL HISTORY: Includes history of alcohol abuse with chronic daily use of whisk ey and beer, asthma, coronary artery disease, cardiac defibrillator in place, history of foot infecti on requiring surgery and prolonged antibiotic, COPD, history of COVID-19, elevated PSA, GERD without esophagitis, congestive heart failure, history of tobacco abuse, idiopathic cardiomyopathy, obstructi ve sleep apnea treated with BiPAP, peripheral neuropathy, permanent cardiac pacemaker, hyperlipidemia , longstanding type 2 diabetes, colonoscopy, prostate biopsy, left foot surgery, permanent cardiac pa cemaker placement. SOCIAL HISTORY: The patient is a former smoker as well as heavy alcohol use for most of his entire l shama. Currently, he lives alone. He is retired. He uses cane and walker for ambulation, especially since the surgery about a month ago. REVIEW OF SYSTEMS: As detailed in HPI. Essentially, he really did not have any acute symptoms and w as sent to the hospital purely because of abnormal labs. Twelve systems reviewed and negative. PHYSICAL EXAMINATION: VITALS SIGNS: Include blood pressure 99/49, pulse rate 61, temperature is 36.4, 95% on room air. GENERAL: Elderly white male who appears to be in no respiratory distress. He is able to give a deta iled account of his medical problem. HEENT: Mucous membranes are moist. NECK: Supple. No jugular venous distention. CHEST: Bilaterally clear to auscultation. Occasional wheezing. CARDIOVASCULAR: Regular rate and rhythm. No murmur, rubs, or gallop. ABDOMEN: Soft, nontender. EXTREMITIES: Show no edema. Left foot still in dressing. SKIN: No rash, bruising, or ulcer. NEUROLOGIC: Awake, alert, and moving all 4 extremities. Normal speech. LABORATORY TESTS: Blood work, as of October 2021 he had a creatinine of 0.9, but about a week ago he alr poly had somewhat abnormal creatinine of 1.7, on admission yesterday was even worse with a creatinine of 4.15, today it is better at 3.68. Most recent blood work from this morning shows sodium 138, pot assium 4.3, chloride 108, bicarbonate 23, anion gap 7, calcium 8.3. Hemoglobin 11.2, WBC count 7, pl atelet count 139. IMAGING DATA: Renal ultrasound already done and unremarkable. Chest x-ray shows mild central pulmon anselmo vascular congestion, but without any overt edema. ASSESSMENT AND PLAN: A 71-year-old male with extensive medical problem list, admitted because of abn ormal labs showing acute renal failure for which I have been consulted. Acute renal failure. His baseline creatinine as of October 2021 was completely normal at less than 1 cr eatinine. On admission, creatinine was 4.1, but fortunately it seems to be trending down with the us e of IV fluid and he is making increasing amount of urine, which appears very clear and normal appear ing. Most likely etiology of acute renal failure is hemodynamics/component of ATN. He is on multipl e medications, which affect the renal perfusion and function including eplerenone, Lasix, metformin, losartan, and meloxicam. All of these medications are currently on hold. He has been on cefepime fo r more than a few weeks now. This particular antibiotic is not really associated with acute renal fa ilure; however, any antibiotics or even infection can be associated with postinfectious glomeruloneph ritis or acute interstitial nephritis. However, the chances of this are pretty low given that creati nine is already starting to improve very promptly. Continue current IV fluid with 100 mL per hour at least for 1 more day. After that, we will stop given his history of congestive heart failure. Avoi d nephrotoxic agents and renally dose all the medications depending on the GFR. No further workup is needed. I will continue to follow the patient. Thank you very much for the consult. Job ID: [id number]
--- NOTE | 2021-12-22 14:11 | Hospitalist Progress Note ---
Date of Service December 22, 2021 Assessment & Plan (1) Acute renal failure (ARF): Plan 71-year-old male with PMH of T2DM, hypercholesterolemia, COPD, sleep apnea on CPAP, chronic systolic CHF with EF 20% many years ago, status post biventricular implantable cardiac defibrillator, latest echo with EF normalized, nonischemic cardiomyopathy, HTN, GERD, prostate cancer, history of tobacco abuse, COVID presented 12/21 per outpatient lab work revealing creatinine 4.1. Of note, he was recently admitted at [facility] for left foot hardware infection requiring hardware removal and he has been on cefepime since then via PICC line [estimated last day of antibiotics 12/31/2021]. He reports being sober since October 2021, had 1 drink past Monday though. October 25, 2021 echo with EF of 60 to 65%, grade 1 diastolic dysfunction. Is being managed for the following: #. MAGDY Patient presented with outpatient lab work revealing creatinine of 4.1 Unclear etiology, suspect ATN likely being on multiple nephrotoxic drugs. Continue to hold eplerenone, Lasix, metformin, losartan, meloxicam. Continue with IV fluids, creatinine down trended to 3.68 Continue with renally dosed Cefepime. Nephrology on board, appreciate recommendation. #. Recent history of infected left foot hardware Was seen in [facility] [see above]. Has right arm PICC line. Continue with cefepime renally dosed, last day 12/31/2021. Nonweightbearing left foot. Wound care consult. PT/OT. #. Anticoagulated on Coumadin Unclear indication, patient remembers being started by cardiology many years ago. INR 1.7, getting extra 2 mg dose of warfarin today. PT/INR daily, continue to dose adjust as appropriate. Follow-up with warfarin clinic upon discharge. #. Other chronic medical conditions: T2DM, ANGELICA on BiPAP, former alcohol abuse Resume home CPAP, continue home inhalers, hold metformin, sliding scale insulin while inpatient. Patient reports sobriety for past 8 weeks [employer]. #. DVT prophylaxis: On Coumadin #. Disposition: From home, pending improvement in his renal function. Admission and Anticipated Discharge Date Admission Date: December 21, 2021 Subjective Patient seen and examined at bedside as a follow-up of MAGDY and current history of infected left foot hardware under cefepime until 12/31/2021. Patient was lying in bed, on room air, NAD, no new acute events overnight per patient. Patient reports eating okay. Patient reports some pain in his bilateral feet from his neuropathy which is chronic in nature otherwise denies any fever/headache/dizziness/chest pain/palpitation/sore throat/cough/other review of symptoms. Patient reports moving bowels okay. Physical Exam Physical Exam: GENERAL: Alert and oriented x3. NAD, on RA. HEENT: No pallor, no icterus. Pupils equal, round and reactive to light. Oral mucosa moist. NECK: No JVD, no neck masses. HEART: S1 and S2 heard. Regular rate and rhythm. No murmur, no gallop. RESPIRATORY SYSTEM: Normal AP diameter. No accessory muscle use. No wheezing, no crackles. ABDOMEN: Soft, bowel sounds present, nontender, no distention. CENTRAL NERVOUS SYSTEM: No facial droop. Speech is clear. Obeys simple commands. Moves extremities. EXTREMITIES: No edema, no erythema seen. lt foot w/ clean dressing, dorsum of left foot has dry wound. Results & Data Results & Data ([facility]) Vital Signs (Past 12 Hours) Vital Signs Temp Pulse Pulse Resp BP Pulse Ox O2 Del Method 12/22/21 12:00 36.7 C 60 16 109/55 L 96 Room Air 12/22/21 08:13 36.4 C L 61 18 99/49 L 95 Room Air 12/22/21 07:10 63 12/22/21 04:00 36.4 C L 64 18 138/72 98 Nasal Cannula O2 Flow Rate 12/22/21 12:00 12/22/21 08:13 12/22/21 07:10 12/22/21 04:00 2 (1) Acute renal failure (ARF) Acute renal failure type: unspecified Qualified Code(s): N17.9 - Acute kidney failure, unspecified
[2021-12-22] MEDS: ALBUTEROL HFA 8 GM INHALER INH PRN ×2 (14:57→23:08)
[2021-12-22] MEDS ORDERED: WARFARIN SOD 2 MG TAB PO ONE (16:00)
[2021-12-22] MEDS: WARFARIN SOD 4 MG TAB PO SCH (17:01)
[2021-12-22] MEDS: MONTELUKAST SODIUM 10 MG TABLET PO SCH (20:58)
[2021-12-23] MEDS: allopurinoL 100 MG TAB PO SCH ×3 (00:16→17:17)
[2021-12-23] MEDS: SODIUM CHLORIDE 0.9% 1000ML 1,000 ML IV SCH ×2 (00:16→09:48)
[2021-12-23 06:15] LABS: Prothrombin Time 20.9 Seconds (9.0-12.0)
[2021-12-23] MEDS: PANTOprazole 40 MG TAB PO SCH (06:21)
[2021-12-23] MEDS: guaiFENesin 600 MG TABCR PO SCH ×2 (06:22→17:20)
[2021-12-23 06:24] LABS: BUN Creatinine Ratio 23.7 (10-20); Calcium 8.2 mg/dl (8.5-10.1); Creatinine Clr Calc Pharmacy 29.9 ml/min; Est GFR (African American) 25.6 ml/min; Est GFR (Non-African American) 22.1 ml/min; Potassium 4.3 mmol/L (3.5-5.1)
--- NOTE | 2021-12-23 08:00 | Nephrology Progress Note ---
Date of Service December 23, 2021 Assessment & Plan (1) Acute kidney injury: Plan: Improving prerenal Stage 3 MAGDY also with presumed ischemic ATN component. His baseline creatinine as of October 2021 was completely normal at less than 1.. On admission 12/22, creatinine was 4.1, but fortunately it seems to be trending down with the use of IV fluid and he is making >1L urine. Urine sediment w/o infection and wtih dipstick blood, protein. Has been on several weeks of cefep jody for infected L foot hardware, though given clinical course postinfectious GN or AIN unlikely. -continue NS at 100 mL per hour as tolerated, though w/ history of congestive heart failure stop immediately if sob/edema emerges >> changed this PM to / NS given hyperchloremia ans stable BP -Avoid nephrotoxic agents and renally dose all the medications depending on the GFR. -daily bmp -recheck UACM ordered for today Admission and Anticipated Discharge Date Admission Date: December 21, 2021 Subjective not dyspneic, tolerating po; using inhalers per instructions; no concenrns about his wound or LUTS. Review of Systems Review of Systems: All systems reviewed & are unremarkable except as noted in Subjective Physical Exam Constitutional: well developed and well nourished Eyes: EOM intact bilaterally ENMT: Ears: no external ear abnormality Nose: no external nose abnormality Mouth: + dry oral mucous membranes Neck: no nuchal rigidity Respiratory: normal respiratory effort Auscultation: + diminished lung sounds (rm L base) and + rales (R base) Cardiovascular: Rate/Rhythm: regular rate and regular rhythm Extremities: no edema Gastrointestinal (Abdomen): Inspection/Auscultation: normal bowel sounds Percussion/Palpation: abdomen soft; abdomen nontender Musculoskeletal: Extremities: strength 5/5 throughout Skin: no rashes, warm and dry Neurologic: pickett, fluent speech, no tremor Results & Data ([facility]) Vital Signs (Past 12 Hours) Vital Signs Temp Pulse Pulse Resp BP Pulse Ox O2 Del Method 12/23/21 07:16 36.4 C L 62 18 126/69 94 Room Air 12/23/21 00:00 60 12/23/21 03:41 36.7 C 69 18 100/56 L 98 Nasal Cannula 12/22/21 23:08 80 18 95 Room Air 07/13/22 23:04 36.6 C 88 16 121/72 93 Room Air O2 Flow Rate 12/23/21 07:16 12/23/21 00:00 12/23/21 03:41 2 12/22/21 23:08 12/22/21 23:04 Laboratory Results 12/21/21 12:46 12/23/21 05:20
[2021-12-23] MEDS: INSULIN ASPART PER UNIT SC SCH ×4 (08:18→20:44)
[2021-12-23] MEDS: GABAPENTIN 100 MG CAP PO SCH ×3 (08:23→20:43)
[2021-12-23] MEDS: CEFEPIME 1,000 MG in SYRINGE 0 ML IV SCH (08:23)
[2021-12-23] MEDS: SENNA 8.6 MG TAB PO SCH ×2 (08:24→20:44)
[2021-12-23] MEDS: carvediloL 6.25 MG TAB PO SCH ×2 (08:24→17:20)
[2021-12-23] MEDS: VITAMIN B COMPLEX TAB PO SCH (08:24)
[2021-12-23] MEDS: ROSUVASTATIN CALCIUM 20 MG TAB PO SCH (08:24)
[2021-12-23] MEDS: UMECLIDINIUM/VILANTEROL 62.5/25MCG 7 PUFFS/INHALER INH SCH (08:25)
[2021-12-23] MEDS: FLUTICASONE FUROATE 200MCG 14 PUFFS/INHALER INH SCH (08:25)
[2021-12-23] MEDS: FLUTICASONE PROPIONATE NA SPR 16 GM BTL SCH (08:25)
[2021-12-23 10:51] LABS: Urea Nitrogen, Random Urine 331 mg/dL
[2021-12-23] MEDS ORDERED: CEFEPIME 1,000 MG in SYRINGE 0 ML IV ONE (11:00)
[2021-12-23] MEDS: traMADol HCL 50 MG TABLET PO PRN (11:22)
--- NOTE | 2021-12-23 16:31 | Hospitalist Progress Note ---
Date of Service December 23, 2021 Assessment & Plan (1) Acute renal failure (ARF): Plan 71-year-old male with PMH of T2DM, hypercholesterolemia, COPD, sleep apnea on CPAP, chronic systolic CHF with EF 20% many years ago, status post biventricular implantable cardiac defibrillator, latest echo with EF normalized, nonischemic cardiomyopathy, HTN, GERD, prostate cancer, history of tobacco abuse, COVID presented 12/21 per outpatient lab work revealing creatinine 4.1. Of note, he was recently admitted at [facility] for left foot hardware infection requiring hardware removal and he has been on cefepime since then via PICC line [estimated last day of antibiotics 12/31/2021]. He reports being sober since October 2021, had 1 drink past Monday though. October 25, 2021 echo with EF of 60 to 65%, grade 1 diastolic dysfunction. Is being managed for the following: #. MAGDY Patient presented with outpatient lab work revealing creatinine of 4.1 Unclear etiology, suspect ATN likely being on multiple nephrotoxic drugs. Continue to hold eplerenone, Lasix, metformin, losartan, meloxicam. Continue with IV fluids, creatinine downtrending Continue with renally dosed Cefepime. Nephrology on board, appreciate recommendation. #. Recent history of infected left foot hardware Was seen in [facility] [see above]. Has right arm PICC line. Continue with cefepime renally dosed, last day 12/31/2021. Nonweightbearing left foot. Wound care consult. PT/OT. #. Anticoagulated on Coumadin Unclear indication, patient remembers being started by cardiology many years ago. INR 2.0 today PT/INR daily, continue to dose adjust as appropriate. Follow-up with warfarin clinic upon discharge. #. Other chronic medical conditions: T2DM, ANGELICA on BiPAP, former alcohol abuse Resume home CPAP, continue home inhalers, hold metformin, sliding scale insulin while inpatient. Patient reports sobriety for past 8 weeks [employer]. #. DVT prophylaxis: On Coumadin #. Disposition: From home, pending improvement in his renal function. Admission and Anticipated Discharge Date Admission Date: December 21, 2021 Subjective Patient seen and examined at bedside as a follow-up of MAGDY and current history of infected left foot hardware under cefepime until 12/31/2021. Patient was lying in bed, on room air, NAD, no new acute events overnight per patient. Patient reports eating okay. Patient reports better pain control in his bilateral feet [usu has chr pain from his neuropathy] otherwise denies any fever/headache/dizziness/chest pain/palpitation/sore throat/cough/other review of symptoms. Patient reports moving bowels okay. Physical Exam Physical Exam: GENERAL: Alert and oriented x3. NAD, on RA. HEENT: No pallor, no icterus. Pupils equal, round and reactive to light. Oral mucosa moist. NECK: No JVD, no neck masses. HEART: S1 and S2 heard. Regular rate and rhythm. No murmur, no gallop. RESPIRATORY SYSTEM: Normal AP diameter. No accessory muscle use. No wheezing, no crackles. ABDOMEN: Soft, bowel sounds present, nontender, no distention. CENTRAL NERVOUS SYSTEM: No facial droop. Speech is clear. Obeys simple commands. Moves extremities. EXTREMITIES: No edema, no erythema seen. lt foot w/ clean dressing, dorsum of left foot has dry wound. Results & Data Results & Data ([facility]) Vital Signs (Past 12 Hours) Vital Signs Temp Pulse Pulse Resp BP Pulse Ox O2 Del Method 12/23/21 15:20 74 12/23/21 10:59 36.4 C L 61 17 121/64 96 Room Air 12/23/21 10:03 59 L 12/23/21 07:16 36.4 C L 62 18 126/69 94 Room Air (1) Acute renal failure (ARF) Acute renal failure type: unspecified Qualified Code(s): N17.9 - Acute kidney failure, unspecified
[2021-12-23] MEDS: WARFARIN SOD 4 MG TAB PO SCH (17:18)
[2021-12-23] MEDS: SODIUM CHLORIDE 0.45 % 1,000 ML IV SCH (18:26)
[2021-12-23 19:19] LABS: Appearance Urine Clear (Clear); Bacteria Urine Automated Negative (Negative); Bilirubin Urine Negative (Negative); Blood Urine Trace (Negative); Color Urine Yellow; Glucose Urine UA Negative (Negative); Ketones Urine Negative (Negative); Leukocyte Esterase Urine Negative (Negative); Nitrite Urine Negative (Negative); Protein Urine 2+ (Negative); Specific Gravity Urine 1.013 (1.000-1.030); Urobilinogen Urine Negative (Negative); pH Urine 5.5 (4.5-7.5)
[2021-12-23] MEDS: ALBUTEROL HFA 8 GM INHALER INH PRN (20:11)
[2021-12-23] MEDS: MONTELUKAST SODIUM 10 MG TABLET PO SCH (20:44)
[2021-12-24] MEDS ORDERED: INSULIN ASPART PER UNIT SC SCH
[2021-12-24] MEDS: allopurinoL 100 MG TAB PO SCH ×3 (00:05→16:45)
[2021-12-24] MEDS ORDERED: Nursing to Pharmacy Communication SCH ×2 (00:30→05:45)
[2021-12-24] MEDS: PANTOprazole 40 MG TAB PO SCH (05:40)
[2021-12-24] MEDS: guaiFENesin 600 MG TABCR PO SCH ×2 (05:40→16:45)
[2021-12-24] MEDS: traMADol HCL 50 MG TABLET PO PRN (05:45)
[2021-12-24] MEDS: SODIUM CHLORIDE 0.45 % 1,000 ML IV SCH ×2 (06:13→18:16)
[2021-12-24 07:15] LABS: INR 2.4 (0.9-1.1); Prothrombin Time 24.8 Seconds (9.0-12.0)
[2021-12-24 07:17] LABS: BUN Creatinine Ratio 25.9 (10-20); Calcium 8.2 mg/dl (8.5-10.1); Creatinine Clr Calc Pharmacy 41.5 ml/min; Est GFR (African American) 37.8 ml/min; Est GFR (Non-African American) 32.6 ml/min; Magnesium 1.5 mg/dl (1.7-2.4)
[2021-12-24] MEDS: INSULIN ASPART PER UNIT SC SCH ×4 (08:16→20:51)
[2021-12-24] MEDS: carvediloL 6.25 MG TAB PO SCH ×2 (08:20→16:46)
[2021-12-24] MEDS: VITAMIN B COMPLEX TAB PO SCH (08:20)
[2021-12-24] MEDS: SENNA 8.6 MG TAB PO SCH ×2 (08:20→21:18)
[2021-12-24] MEDS: GABAPENTIN 100 MG CAP PO SCH ×3 (08:20→21:18)
[2021-12-24] MEDS: ROSUVASTATIN CALCIUM 20 MG TAB PO SCH (08:20)
[2021-12-24] MEDS: FLUTICASONE PROPIONATE NA SPR 16 GM BTL SCH (08:21)
[2021-12-24] MEDS: FLUTICASONE FUROATE 200MCG 14 PUFFS/INHALER INH SCH (08:21)
[2021-12-24] MEDS: UMECLIDINIUM/VILANTEROL 62.5/25MCG 7 PUFFS/INHALER INH SCH (08:21)
[2021-12-24] MEDS: MAGNESIUM SULFATE / D5W 1 GM/100 ML BAG IV SCH ×3 (08:28→12:59)
--- NOTE | 2021-12-24 09:13 | Nephrology Progress Note ---
Date of Service December 24, 2021 Assessment & Plan (1) Acute kidney injury: Plan: further mproving prerenal Stage 3 MAGDY also with presumed ischemic ATN component. His baseline creatinine as of October 2021 was completely normal at less than 1. On admission 12/22, creatinine was 4.1, but fortunately it seems to be trending down with the use of IV fluid and he is making >1L urine. Urine sediment w/o infection and wtih dipstick blood, protein. Has been on several weeks of cefepime for infected L foot hardware, though given clinical course postinfectious GN or AIN unlikely. -continue 1/2 NS at 80 mL per hour as tolerated, though w/ history of congestive heart failure stop immediately if sob/edema emerges -Avoid nephrotoxic agents and renally dose all the medications depending on the GFR. -daily bmp -given ongoing microhematuria/dipstick proteinuria, pr/creat ordered for today >will need hospital discharge appt w/ nephrology [facility] 2-4 wks after d/c w/ weekly bmp to be ordered by neph RN >continue current IVF as long as tolerated >will comment on d/c med recs soon, pending clinical status Admission and Anticipated Discharge Date Admission Date: December 21, 2021 Subjective no acut einterval events; slight sob this am when I saw him but felt it would resolve w/ inhalers Review of Systems Review of Systems: All systems reviewed & are unremarkable except as noted in Subjective Physical Exam Constitutional: well developed and well nourished Eyes: EOM intact bilaterally ENMT: Ears: no external ear abnormality Nose: no external nose abnormality Mouth: + dry oral mucous membranes Neck: no nuchal rigidity Respiratory: normal respiratory effort Auscultation: + diminished lung sounds (rm L base) and + crackles (bibasilar) Cardiovascular: Rate/Rhythm: regular rate and regular rhythm Extremities: no edema Gastrointestinal (Abdomen): Inspection/Auscultation: normal bowel sounds Percussion/Palpation: abdomen soft; abdomen nontender Musculoskeletal: Extremities: strength 5/5 throughout Skin: no rashes, warm and dry Results & Data ([facility]) Vital Signs (Past 12 Hours) Vital Signs Temp Pulse Pulse Resp BP Pulse Ox O2 Del Method 12/24/21 08:53 62 12/24/21 07:20 36.4 C L 63 18 144/78 H 96 12/24/21 03:26 36.5 C 63 18 119/65 95 Room Air 12/24/21 00:00 61 12/23/21 22:46 36.8 C 61 18 112/59 L 93 Room Air Laboratory Results 12/21/21 12:46 12/24/21 06:07
[2021-12-24] MEDS: CEFEPIME 2,000 MG in SYRINGE 0 ML IV SCH ×2 (10:37→21:17)
[2021-12-24] MEDS ORDERED: CEFEPIME 2,000 MG in SYRINGE 0 ML IV SCH (11:00)
[2021-12-24] MEDS: ALBUTEROL HFA 8 GM INHALER INH PRN (11:11)
[2021-12-24 11:39] LABS: Protein Creatinine Ratio Urine 2.1 (0-0.2); Total Protein Urine Random 121.4 mg/dl (0-11.9)
--- NOTE | 2021-12-24 12:11 | Pharmacy Report ---
Pharmacy Glycemic Sign Off Nt - Date of Service December 24, 2021 - Assessment & Plan ASSESSMENT: * Pharmacy was consulted by Dr [] on [date] for glycemic control and to write orders per [facility] inpatient glycemic control protocol. * Major changes made by pharmacy to antidiabetic regimen include: * [] * Patient has been receiving/requiring [] units of insulin per day for adequate glycemic control * BSGs ranging [] [] mg/dl * Regimen has only required minor adjustments over the past 48hrs to achieve this level of control * Do not anticipate further changes in patient status that would quickly deteriorate glycemic control (i.e. patient to be NPO for upcoming procedure, steroids tapering, starting tube feedings, etc). * Please see recommendations for outpatient antidiabetic regimen below. PLAN FOR INPATIENT GLYCEMIC CONTROL: No changes needed to current regimen. * Continue basal insulin with Lantus [] units SQ BID * Continue NovoLog per scale ACHS/Q6hrs while NPO * Goal range = [] [] mg/dl * CF = [] mg/dl/unit * CR = 1 unit for ever [] g CHO consumed * Pharmacy is signing off of glycemic consult and will no longer be making adjustments to inpatient regimen. Please feel free to re-consult if needed. Thank you.
--- NOTE | 2021-12-24 12:35 | Pharmacy Report ---
Pharmacy Glycemic Sign Off Nt - Date of Service December 24, 2021 - Assessment & Plan ASSESSMENT: * Patient requiring Novolog ACHS only for BSG control. Stressors stable, renal function improving. Has required less than 10 units/day of insulin the past 72h. * Novolog CF/CR loosened even further this AM after receipt of 6 units insulin total yesterday and AM BSG 87. PLAN FOR INPATIENT GLYCEMIC CONTROL: No changes needed to current regimen. * Continue NovoLog per scale ACHS/Q6hrs while NPO * Goal range = 110-140 mg/dl * CF = 40 mg/dl/unit * CR = 1 unit for ever 25 g CHO consumed * Pharmacy is signing off of glycemic consult and will no longer be making adjustments to inpatient regimen. Please feel free to re-consult if needed. Thank you.
[2021-12-24] MEDS: WARFARIN SOD 5 MG TAB PO SCH (16:45)
--- NOTE | 2021-12-24 17:52 | Hospitalist Progress Note ---
Date of Service December 24, 2021 Assessment & Plan (1) Acute renal failure (ARF): Plan 71-year-old male with PMH of T2DM, hypercholesterolemia, COPD, sleep apnea on CPAP, chronic systolic CHF with EF 20% many years ago, status post biventricular implantable cardiac defibrillator, latest echo with EF normalized, nonischemic cardiomyopathy, HTN, GERD, prostate cancer, history of tobacco abuse, COVID presented 12/21 per outpatient lab work revealing creatinine 4.1. Of note, he was recently admitted at [facility] for left foot hardware infection requiring hardware removal and he has been on cefepime since then via PICC line [estimated last day of antibiotics 12/31/2021]. He reports being sober since October 2021, had 1 drink past Monday though. October 25, 2021 echo with EF of 60 to 65%, grade 1 diastolic dysfunction. Is being managed for the following: #. MAGDY Patient presented with outpatient lab work revealing creatinine of 4.1 Unclear etiology, suspect ATN likely being on multiple nephrotoxic drugs. Continue to hold eplerenone, Lasix, metformin, losartan, meloxicam. Continue with IV fluids, creatinine downtrending. Hold IVF if concerns of difficulty breathing/vol overload. Continue with renally dosed Cefepime. Nephrology on board, appreciate recommendation. #. Recent history of infected left foot hardware Was seen in [facility] [see above]. Has right arm PICC line. Continue with cefepime renally dosed, last day 12/31/2021. Nonweightbearing left foot. Wound care consult. PT/OT. #. Anticoagulated on Coumadin Unclear indication, patient remembers being started by cardiology many years ago. INR therapeutic PT/INR daily, continue to dose adjust as appropriate. Follow-up with warfarin clinic upon discharge. #. Other chronic medical conditions: T2DM, ANGELICA on BiPAP, former alcohol abuse Resume home CPAP, continue home inhalers, hold metformin, sliding scale insulin while inpatient. Patient reports sobriety for past 8 weeks [employer]ULK[employer]. #. DVT prophylaxis: On Coumadin #. Disposition: From home, pending improvement in his renal function. Admission and Anticipated Discharge Date Admission Date: December 21, 2021 Subjective Patient seen and examined at bedside as a follow-up of MAGDY and current history of infected left foot hardware under cefepime until 12/31/2021. Patient was lying in bed, on room air, NAD, no new acute events overnight per patient. Pt reports some SOB and was awaiting breathing treatment, lungs w/o crackles on exam. Patient reports eating okay. Patient reports better pain control in his bilateral feet [usu has chr pain from his neuropathy] otherwise denies any fever/headache/dizziness/chest pain/palpitation/sore throat/cough/other review of symptoms. Patient reports moving bowels okay. Physical Exam Physical Exam: GENERAL: Alert and oriented x3. NAD, on RA. HEENT: No pallor, no icterus. Pupils equal, round and reactive to light. Oral mucosa moist. NECK: No JVD, no neck masses. HEART: S1 and S2 heard. Regular rate and rhythm. No murmur, no gallop. RESPIRATORY SYSTEM: Normal AP diameter. No accessory muscle use. No wheezing, no crackles. ABDOMEN: Soft, bowel sounds present, nontender, no distention. CENTRAL NERVOUS SYSTEM: No facial droop. Speech is clear. Obeys simple commands. Moves extremities. EXTREMITIES: No edema, no erythema seen. lt foot w/ clean dressing, dorsum of left foot has dry wound. Results & Data Results & Data ([facility]) Vital Signs (Past 12 Hours) Vital Signs Temp Pulse Pulse Resp BP Pulse Ox O2 Del Method 12/24/21 17:25 67 12/24/21 15:34 36.5 C 63 17 144/77 H 97 Room Air 12/24/21 11:25 36.5 C 62 18 125/67 96 Room Air 12/24/21 11:11 60 18 97 Room Air 12/24/21 08:53 62 12/24/21 07:20 36.4 C L 63 18 144/78 H 96 (1) Acute renal failure (ARF) Acute renal failure type: unspecified Qualified Code(s): N17.9 - Acute kidney failure, unspecified
[2021-12-24] MEDS: MONTELUKAST SODIUM 10 MG TABLET PO SCH (21:18)
[2021-12-25] MEDS: allopurinoL 100 MG TAB PO SCH ×2 (00:36→08:06)
[2021-12-25] MEDS: PANTOprazole 40 MG TAB PO SCH (05:53)
[2021-12-25] MEDS: guaiFENesin 600 MG TABCR PO SCH (05:53)
[2021-12-25] MEDS: SODIUM CHLORIDE 0.45 % 1,000 ML IV SCH (05:54)
[2021-12-25 06:57] LABS: INR 2.5 (0.9-1.1); Prothrombin Time 24.9 Seconds (9.0-12.0)
[2021-12-25 07:36] LABS: BUN Creatinine Ratio 27.4 (10-20); Calcium 8.5 mg/dl (8.5-10.1); Creatinine Clr Calc Pharmacy 57.5 ml/min; Est GFR (African American) 55.7 ml/min; Magnesium 1.7 mg/dl (1.7-2.4); Phosphorus 2.8 mg/dl (2.5-4.9)
[2021-12-25] MEDS: INSULIN ASPART PER UNIT SC SCH ×2 (08:00→11:58)
[2021-12-25] MEDS: UMECLIDINIUM/VILANTEROL 62.5/25MCG 7 PUFFS/INHALER INH SCH (08:05)
[2021-12-25] MEDS: FLUTICASONE FUROATE 200MCG 14 PUFFS/INHALER INH SCH (08:05)
[2021-12-25] MEDS: FLUTICASONE PROPIONATE NA SPR 16 GM BTL SCH (08:06)
[2021-12-25] MEDS: ROSUVASTATIN CALCIUM 20 MG TAB PO SCH (08:06)
[2021-12-25] MEDS: carvediloL 6.25 MG TAB PO SCH (08:06)
[2021-12-25] MEDS: SENNA 8.6 MG TAB PO SCH (08:07)
[2021-12-25] MEDS: VITAMIN B COMPLEX TAB PO SCH (08:07)
[2021-12-25] MEDS: GABAPENTIN 100 MG CAP PO SCH ×2 (08:07→14:56)
[2021-12-25] MEDS ORDERED: MAGNESIUM OXIDE 400 MG TAB PO SCH (09:00)
[2021-12-25] MEDS: CEFEPIME 2,000 MG in SYRINGE 0 ML IV SCH (10:26)
[2021-12-25] MEDS ORDERED: CALCIUM CARBONATE 500 MG CHEWABLE TAB PO ONE (10:45)
--- NOTE | 2021-12-25 12:11 | Nephrology Progress Note ---
Date of Service December 25, 2021 Assessment & Plan Admission and Anticipated Discharge Date Admission Date: December 21, 2021 Subjective Assessment & Plan (1) Acute kidney injury: Plan: further improving prerenal Stage 3 MAGDY also with presumed ischemic ATN component. His baseline creatinine as of October 2021 was completely normal at less than 1. On admission 12/22, creatinine was 4.1, but fortunately it seems to be trending down with the use of IV fluid and he is making >1L urine. Urine sediment w/o infection and with dipstick blood, protein. Has been on several weeks of cefepime for infected L foot hardware, though given clinical course postinfectious GN or AIN unlikely. Stopped iv fluid this AM. Can be discharged. He has strong opinion about his meds and really wants to cut down or stop saying he is on too many meds lasix 40 bid. hold all other meds for now. will need hospital discharge appt w/ nephrology [facility] 2 wks after d/c w/ week ly bmp to be ordered by neph RN Subjective no acute interval events. Review of Systems Review of Systems: All systems reviewed & are unremarkable except as noted in Subjective Physical Exam Constitutional: well developed and well nourished Eyes: EOM intact bilaterally ENMT: Ears: no external ear abnormality Nose: no external nose abnormality Mouth: + dry oral mucous membranes Neck: no nuchal rigidity Respiratory: normal respiratory effort Auscultation: + diminished lung sounds (rm L base) and + crackles (bibasilar) Cardiovascular: Rate/Rhythm: regular rate and regular rhythm Extremities: no edema Gastrointestinal (Abdomen): Inspection/Auscultation: normal bowel sounds Percussion/Palpation: abdomen soft; abdomen nontender Musculoskeletal: Extremities: strength 5/5 throughout Skin: no rashes, warm and dry Results & Data ([facility]) Vital Signs (Past 12 Hours) Vital Signs Temp Pulse Pulse Resp BP Pulse Ox O2 Del Method 12/25/21 11:22 36.7 C 65 17 129/71 94 Room Air 12/25/21 07:19 36.5 C 62 17 141/74 H 97 Room Air 12/25/21 07:13 65 12/25/21 04:28 36.7 C 71 20 126/70 97 O2 Flow Rate 12/25/21 11:22 12/25/21 07:19 12/25/21 07:13 12/25/21 04:28 2
[2021-12-25] MEDS ORDERED: FUROSEMIDE 40 MG TAB PO SCH (12:30)
--- NOTE | 2021-12-25 13:55 | XRay Report ---
XR chest 1V portable HISTORY: Volume overload. Assess for pulmonary edema. COMPARISON: Chest 10/24/2021. FINDINGS: No pneumothorax. Left-sided pacemaker/defibrillator is again noted. The heart remains mildl y enlarged. There is mild central pulmonary vascular congestion without overt edema. This is similar to the prior study. No significant pleural effusions. Improved aeration within the left basilar linea r density likely representing resolving atelectasis. No new focal lung consolidations identified. A r ight PICC terminates at the distal SVC. IMPRESSION: Mild central pulmonary vascular congestion without overt edema. This is similar to the prior study. ACT 112: Negative or not required by law. Electronically signed by: Surinder Dey M.D. 12/25/2021 1:53 PM
--- NOTE | 2021-12-25 15:10 | Discharge Summary ---
Date of Service December 25, 2021 Admission HPI Per Admitting Provider Mr Juan Carlos Hernandez is a 71 year old man with history of alcohol abuse (daily whiskey and beer), recent left foot infection, non insulin dependent diabetes, hypertension, cardiomyopathy with recovered EF to 60%, ANGELICA on BIPAP sent in today for outpatient labwork revealing Cr 4.1. He was recently admitted at [facility] for left foot hardware infection requiring hardware removal and he has been cefepime since then via PICC (estimated last day of antibiotic 12/31/21). No recent fever or chills, no nausea/vomiting, one episode loose stool this morning. Denies alcohol use except this past Monday he had on drink, but otherwise reports he has been sober since October 2021. Appetite and oral intake has been normal. Admission Exam Per Admitting Provider Physical Exam: Appears well, no acute distress, non toxic ENMT: normocephalic, atraumatic, mucous membrane moist Respiratory: breathing comfortably on room air, no wheezing/rhonchi/rales Cardiovascular: regular rate and rhythm, no murmurs/rubs/gallops Gastrointestinal (Abdomen): soft, non tender, non distended Musculoskeletal: no edema, left foot in dressing, no cyanosis or clubbing Skin: no rash, no bruising, no ulcer. Known left foot wound Neurologic: awake, alert, spontaneously moving extremities Psychiatric: affect normal, speech linear, non pressured Principal Diagnosis Acute kidney injury Recent history of infected left foot hardware currently on IV cefepime Discharge Exam GENERAL: Alert and oriented x3. NAD, on RA. HEENT: No pallor, no icterus. Pupils equal, round and reactive to light. Oral mucosa moist. NECK: No JVD, no neck masses. HEART: S1 and S2 heard. Regular rate and rhythm. No murmur, no gallop. RESPIRATORY SYSTEM: Normal AP diameter. No accessory muscle use. No wheezing, no crackles. ABDOMEN: Soft, bowel sounds present, nontender, no distention. CENTRAL NERVOUS SYSTEM: No facial droop. Speech is clear. Obeys simple commands. Moves extremities. EXTREMITIES: trace ble edema, no erythema seen. lt foot w/ clean dressing, dorsum of left foot has dry wound. Discharge Data Allergies Allergy/AdvReac Type Severity Reaction Status Date / Time doxycycline AdvReac Nausea Verified 12/21/21 21:51 Consultations 12/21/21 13:52 ED Decision to Admit Stat 12/21/21 16:36 Consult Nephrology Routine Ordered Studies 12/21/21 14:45 US renal/blad retro comp Stat Hospital Course (1) Acute renal failure (ARF): Plan 71-year-old male with PMH of T2DM, hypercholesterolemia, COPD, sleep apnea on CPAP, chronic systolic CHF with EF 20% many years ago, status post biventricular implantable cardiac defibrillator, latest echo with EF normalized, nonischemic cardiomyopathy, HTN, GERD, prostate cancer, history of tobacco abuse, COVID presented 12/21 per outpatient lab work revealing creatinine 4.1. Of note, he was recently admitted at [facility] for left foot hardware infection requiring hardware removal and he has been on cefepime since then via PICC line [estimated last day of antibiotics 12/31/2021]. He reports being sober since October 2021, had 1 drink past Monday though. October 25, 2021 echo with EF of 60 to 65%, grade 1 diastolic dysfunction. was managed for the following: #. MAGDY Patient presented with outpatient lab work revealing creatinine of 4.1 Unclear etiology, suspect ATN likely being on multiple nephrotoxic drugs. Renal function improved, patient to hold losartan and eplerenone upon discharge and Lasix dose has been cut down to 40 mg twice a day. Patient made aware. Patient to get BMP every 3 days until IV antibiotic and then 1 week after the IV antibiotic is done. Patient to follow-up with PCP in a week time and nephrology in 2 weeks time upon discharge. Discussed with nephrology. #. Recent history of infected left foot hardware Was seen in [facility] [see above]. Has right arm PICC line. Continue with cefepime renally dosed, last day 12/31/2021. Nonweightbearing left foot. Wound care consult. PT/OT. #. Anticoagulated on Coumadin Unclear indication, patient remembers being started by cardiology many years ago. INR therapeutic PT/INR daily, continue to dose adjust as appropriate. Follow-up with warfarin clinic upon discharge. #. Other chronic medical conditions: T2DM, ANGELICA on BiPAP, former alcohol abuse Resume home CPAP, continue home inhalers, hold metformin, sliding scale insulin while inpatient. Patient reports sobriety for past 8 weeks [employer]. #. DVT prophylaxis: On Coumadin Patient being discharged home with following instruction at the point of disch arge: Follow-up with your primary care physician within a week time. Get your blood work BMP every 3 days until completion of your IV antibiotic. And then get your BMP at 1 week after completion of your IV antibiotic. Your home medications Lasix has been cut down to 40 mg twice a day, other home medication eplerenone and losartan and meloxicam has been stopped upon discharge. After going home today, take your second dose of Lasix today evening. Also take your second dose of IV cefepime today evening. For your pain management, avoid NSAIDs in future. Your meloxicam has been discontinued upon discharge. Take [id number]-eshpdjo Tylenol for pain control. For severe pain, you can use tramadol as needed up to 2-3 times a day. You have been discharged with few days worth of tramadol, for your pain needing more pain medication, you will need further evaluation by your primary care physician for further management/prescription of pain management. Follow-up with your Coumadin clinic as an outpatient. Follow-up with your nephrology doctor in 2 weeks upon discharge. Take medications as prescribed. Total Time Total Time Spent Total Time Spent (In Minutes): 35 Discharge Plan Discharge Items Patient Disposition: Home - Home Health Services Reason For Visit: RENAL FAILURE Discharge Diagnosis: Acute kidney injury Recent history of infected left foot hardware currently on IV cefepime Activity: Resume your previous activity Non-emergency contact: Primary Care Provider Call non-emergency contact if: you have any medication questions, your symptoms worsen and your temperature is above 101 Follow-up/Referrals: Konrad Reinoso MD [Primary Care Provider] - 12/29/21 11:00 am (Date & Time 12/29/2021 11:00 AM Provider Vesna Segovia MD Department General Internal Medicine [facility] ) Diet: Carb Consistent or DM2 and Dialysis Renal Addtl Attending Provider Instructions: Follow-up with your primary care physician within a week time. Get your blood work BMP every 3 days until completion of your IV antibiotic. And then get your BMP at 1 week after completion of your IV antibiotic. Your home medications Lasix has been cut down to 40 mg twice a day, other home medication eplerenone and losartan and meloxicam has been stopped upon discharge. After going home today, take your second dose of Lasix today evening. Also take your second dose of IV cefepime today evening. For your pain management, avoid NSAIDs in future. Your meloxicam has been discontinued upon discharge. Take [id number]-omsihdo Tylenol for pain control. For severe pain, you can use tramadol as needed up to 2-3 times a day. You have been discharged with few days worth of tramadol, for your pain needing more pain medication, you will need further evaluation by your primary care physician for further management/prescription of pain management. Follow-up with your Coumadin clinic as an outpatient. Follow-up with your nephrology doctor in 2 weeks upon discharge. Take medications as prescribed. Pending Studies at Discharge: No Stand-Alone Forms: My [facility] [employer] Smoking Cessation Medications and DC Order Prescriptions: New tramadol 50 mg Tablet 50 mg PO Q8H PRN (Reason: severe pain (scale score 7-10)) 5 Days Qty: 15 0RF acetaminophen 325 mg Tablet 650 mg PO Q8H PRN (Reason: fever or pain) Qty: 60 0RF cefepime 2 gram recon soln 2 g IV Q12H 7 Days Qty: 14 0RF Rx Instructions: twice a day, iv, upto 12/31/2021. Continued Trelegy Ellipta 200-62.5-25 mcg blister with device 1 inh inhalation QAM (DME) BiPap Machine Misc See Rx Instructions .ROUTE Rx Instructions: As directed carvedilol 6.25 mg Tablet 6.25 mg PO BIDM allopurinol 100 mg tablet 100 mg PO Q8H warfarin 2 mg Tablet See Rx Instructions .ROUTE .COMPLEX Rx Instructions: Take 2.5mg on Monday and Monday at bedtime. Take 2 tablets the other five days of the week at bedtime. gabapentin 100 mg Capsule 200 mg PO TID albuterol sulfate 90 mcg/actuation Hfa Aerosol Inhaler 2 puff INHALATION Q6H PRN (Reason: Shortness Of Breath Or Wheezing) metformin 500 mg tablet extended release 24 hr 500 mg PO BID rosuvastatin 20 mg tablet 20 mg PO HS guaifenesin [Mucinex] 600 mg Tablet Extended Release 12hr 600 mg PO HS docusate sodium [Colace] 100 mg Capsule 100 mg PO QDD Mucinex Cold 2.5-100 mg/5 mL Liquid 20 ml PO QAM sennosides [senna] 8.6 mg Tablet 8.6 mg PO HS albuterol sulfate 2.5 mg /3 mL (0.083 %) Solution For Nebulization 2.5 mg INHALATION Q4H PRN (Reason: Wheezing) omeprazole 20 mg Capsule,Delayed Release(Dr/Ec) 20 mg PO DAILYBB montelukast 10 mg Tablet 10 mg PO HS fluticasone propionate 50 mcg/actuation [place],Suspension 2 spray INTRANASAL BID vitamin B complex Capsule 1 cap PO QAM Eucerin Cream 1 applic TOPICAL DAILY PRN (Reason: Rash) magnesium oxide 400 mg magnesium Capsule 400 mg PO HS Changed furosemide 40 mg tablet 40 mg PO BID Qty: 60 0RF Discontinued meloxicam 15 mg Tablet 15 mg PO DAILY PRN (Reason: Pain) losartan 50 mg Tablet 50 mg PO QAM eplerenone 25 mg Tablet 25 mg PO QAM Discharge Orders: Discharge Order (Routine); Ordered 12/25/21 Ordered By: Natasha Shelby Admission Data Admit Date/Time: 12/21/21 14:44 Attending Provider: Natasha Shelby Admit Provider: Philip Camacho Primary Care Provider: Konrad Reinoso Other Providers: Jun Segovia
== END 2021-12-25 16:09 | disposition home health service (06) | DRG 683 ==
LOC: ED 11:20 → SUATTDRO 14:44 → 2E 14:44

== ENCOUNTER 2023-06-07 10:38 | Inpatient (IN) ==
--- NOTE | 2023-06-07 12:00 | XRay Report ---
SINGLE VIEW CHEST CLINICAL HISTORY: Sepsis. FINDINGS: An AP, portable, upright chest radiograph is compared to study dated 02/02/2023. The examina tion is degraded by portable technique and patient rotation. A right subclavian central venous infus ion port and a 2-lead cardiac AICD are unchanged in position. The heart is enlarged noting atheroscle rotic calcification of the thoracic aorta. There is mild pulmonary vascular congestion. Emphysema and chronic interstitial thickening similar to previous. There is bibasilar scarring/atelectasis. Questi on small pleural effusions. Foci of parenchymal scarring are seen throughout both lungs. No pneumotho rax is seen. The skeletal structures are osteopenic. The bony thorax is grossly intact. Degenerative change is noted in the shoulders and spine. IMPRESSION: 1. Cardiomegaly and AICD with mild pulmonary vascular congestion. 2. Emphysema. 3. Question small pleural effusions. ACT 112: Negative or not required by law. Electronically signed by: Jamaal Dunn M.D. 06/07/2023 11:58 AM
--- NOTE | 2023-06-07 12:17 | Emergency Department Note ---
Impression & Plan Respiratory syncytial virus (RSV) infection ED Provider Note NAME: BREEZY COLIN AGE: 72 SEX: M : 1950 ARRIVES VIA: Walk-In INFORMANT: Patient, ED PROVIDER(S): Ryanne Sanchez MD CHIEF COMPLAINT: Generalized illness HPI: This is a 72-year-old male presenting for generalized illness. Patient has been short of breath, for the past 3 to 4 days. He has noticed chills, cough. He has no chest pain, nausea, vomiting or diarrhea. He notes he does take chemotherapy and last had a session on Monday, 3 days ago. He does not have any sick contacts. He lives alone. He states he feels significantly confused while at home as well. ROS: See above HPI for pertinent positives & negatives. A total of 10 systems reviewed and were otherwise negative. PAST MEDICAL HISTORY: See Below PAST SURGICAL HISTORY: See Below FAMILY HISTORY: See Below SOCIAL HISTORY: See Below HOME MEDICATIONS: See Below ALLERGIES: See Below VITALS: See Below PHYSICAL EXAMINATION: General: resting comfortably in no acute distress Head: Normocephalic and atraumatic Eyes: Normal inspection, extraocular muscles intact Ear, nose, throat: Normal external exam Neck: Normal range of motion Respiratory: lungs clear to auscultation bilaterally Cardiovascular: Regular rate/rhythm, no murmur GI: soft, nontender, no guarding or rebound Extremities: nontender, moves all extremities Neuro: The patient awake and alert, appropriately conversive, no focal deficits, symmetric faces Skin: Warm, dry, and intact MEDICAL DECISION MAKING: This is a 72-year-old male seen for generalized illness. Patient has been short of breath, chills and cough. Patient notes he feels somewhat confused, lives alone and does not feel safe at home -Lab work reveals leukopenia, ANC count of 0.9, tachycardia vacuolation, hyponatremia to 130 -RSV positive -Chest Xray independently interpreted by me showing no pneumothorax, focal opacity, does reveal small pleural effusions and cardiomegaly -Patient would prefer admission due to living alone and his current respiratory effort, confusion -Will inpatient as patient also is leukopenic with ANC of 0.9 with toxic vaculations Differential diagnosis: Viral process, pneumonia, meningitis, ACS ER treatment provided: See below Diagnostics interpreted by me: ECG: ECG independently interpreted by me with ventricularly paced rhythm, rate of 103, normal QTc, no Sgarbossa or STEMI criteria Cardiac Monitoring: An order was placed for continuous cardiac monitoring. The monitor shows a rate of 103 with sinus rhythm. Laboratory studies: As stated above and show below. Imaging studies: See below. Past Med/Surg History Medical History GERD (gastroesophageal reflux disease) Chronic heart failure Nonischemic cardiomyopathy Hypertension Prostate cancer has metastisized to back and hip>XRT for 2 weeks, late december 2022 Gout On home oxygen therapy uses with BIPAP at night, 2.5L Sleep apnea bipap with 2.5L O2 at HS Cellulitis of foot hx-has had surgery twice; no current infection Fall 2021, "passed out and ended up in the hospital">no current issues CAD (coronary artery disease) Alcohol abuse no beer for 25 years, "only has 1 shot of whiskey about 3 days per week" Asthma daily and prn inhaler; nebulizer also Swelling, mass, or lump in chest 04/16/10 non diagnostic bronchoscopy Heart failure Peripheral neuropathy Prostate nodule COPD (chronic obstructive pulmonary disease) daily and prn inhalers and nebulizer Gastroesophageal reflux disease without esophagitis Centrilobular emphysema Hilar enlargement History of tobacco use Elevated PSA Pure hypercholesterolemia Type 2 diabetes mellitus Idiopathic cardiomyopathy Kienbock's disease of adults hx Cardiac defibrillator in place new one placed in 2021, [facility]; f/u jose chacon Presence of permanent cardiac pacemaker Surgical History Port-A-Cath in place (02/02/23) Insertion Access Port with Fluoroscopy, right subclavian (Right) - Cecil Osorio, History of surgery scrotal sx for infection-many years ago History of permanent cardiac pacemaker placement 02/02/21, [facility]; f/u jose chacon Hx of prostate biopsy Status post left foot surgery 03/2021 pins removed 11/2021 Hx of colonoscopy Family History Father Cancer Heart disease Social History Smoking Status: Former smoker Tobacco Type: Cigarettes Second Hand Exposure: Yes; Do You Dip or Chew Tobacco: Yes; Hx Alcohol Use: Yes Alcohol type: beer and hard liquor Alcohol type Comment: 1- 2 shots, 3 times/week Hx Substance Use: No Preferred Language: Citizen Of [place] Communication Ability: Effective Visual Impairment: No Limitations Hearing Ability: Hard of Hearing Head Loader Required: No Beliefs That Will Affect Care: None marital status: / Current Living Situation: Alone Current Living Situation Comment: in apartment building current occupational status: retired How many Children do You have: 1 Feels Safe at Home: No Is there a partner from a previous relationship who is making you feel unsafe now?: No Diet: regular during the past year weight has: remained stable Physical Activity Frequency Comment: has not been able to walk while recovering from surgery Assistive Devices: BiPap, Denture - Upper, Denture - Lower, Glasses and Walker Allergies Allergies Allergy/AdvReac Type Severity Reaction Status Date / Time No Known Allergies Allergy Verified 06/07/23 15:22 Home Meds Home Medications Medication Instructions Recorded Confirmed albuterol sulfate 2.5 mg/3 mL 2.5 mg inhalation Q4H PRN Wheezing 02/02/21 06/07/23 (0.083 %) solution for nebulization fluticasone propionate 50 2 spray intranasal DAILY 02/02/21 06/07/23 mcg/actuation nasal spray,suspension lanolin alcohols-mineral 1 applic topical DAILY PRN Rash 02/02/21 06/07/23 oil-w.petrolatum-ceresin topical cream (Eucerin topical cream) montelukast 10 mg tablet 10 mg PO HS 02/02/21 06/07/23 omeprazole 20 mg capsule,delayed 20 mg PO QAM 02/02/21 06/07/23 release sennosides 8.6 mg tablet (senna) 8.6 mg PO HS PRN Constipation 02/02/21 06/07/23 vitamin B complex 1 cap PO QAM 02/02/21 06/07/23 BiPap Machine 07/01/21 06/07/23 fluticasone fur. 200 mcg-umeclid 1 inh inhalation QAM 07/01/21 06/07/23 62.5 mcg-vilant 25 mcg inhalat.powder (Trelegy Ellipta) albuterol sulfate 90 mcg/actuation 2 puff inhalation Q6H PRN 10/23/21 06/07/23 aerosol inhaler Shortness Of Breath Or Wheezing gabapentin 100 mg capsule 200 mg PO TID 10/23/21 06/07/23 metformin 500 mg tablet,extended 500 mg PO BID 10/23/21 06/07/23 release 24 hr rosuvastatin 20 mg tablet 20 mg PO HS 10/23/21 06/07/23 warfarin 2 mg tablet 4 mg PO DAILY 10/23/21 06/07/23 docusate sodium 100 mg capsule 100 mg PO QPM PRN Constipation 12/21/21 06/07/23 (Colace) guaifenesin 600 mg tablet, 1,200 mg PO QPM PRN Congestion 12/08/22 06/07/23 extended release 12 hr (Mucinex) leuprolide acetate (6 month) 45 mg 45 mg IM Q24W 12/19/22 06/07/23 intramuscular syringe kit (Lupron Depot) furosemide 40 mg tablet 40 mg PO UD 01/27/23 06/07/23 magnesium 250 mg tablet 250 mg PO BID 01/27/23 06/07/23 allopurinol 100 mg tablet 100 mg PO BID 04/18/23 06/07/23 losartan 25 mg tablet 12.5 mg PO DAILY 04/18/23 06/07/23 metoprolol succinate 50 mg 50 mg PO DAILY 04/18/23 06/07/23 tablet,extended release 24 hr ondansetron HCl 8 mg tablet 8 mg PO Q8H PRN NAUSEA/VOMITING 04/18/23 06/07/23 prednisone 5 mg tablet 5 mg PO DAILY 04/18/23 06/07/23 prochlorperazine maleate 10 mg 10 mg PO Q6H PRN NAUSEA/VOMITING 04/18/23 06/07/23 tablet (Compazine) mupirocin 2 % topical ointment 1 applic topical BID 05/08/23 06/07/23 oxycodone-acetaminophen 5 mg-325 1 tab PO Q8H PRN mod-severe pain 06/07/23 06/07/23 mg tablet phenylephrine-guaifenesin 2.5 0 ml PO QAM PRN Congestion 06/07/23 06/07/23 mg-100 mg/5 mL oral liquid Results & Data (ED) Vital Signs Vital Signs - 24 hr 06/07/23 10:59 06/07/23 11:02 06/07/23 11:16 Temperature 36.4 C L Temperature Source Skin Pulse Rate 81 Pulse Rate [Apical] Pulse Rate from SpO2 Sensor Pulse Rhythm Regular Pulse Rhythm [Apical] Pulse Strength Normal Pulse Strength [Apical] Respiratory Rate 20 Respiratory Effort / Characteristics Non-Labored Spontaneous Non-Labored Respiratory Depth Normal Respiratory Pattern Regular Regular Blood Pressure 116/59 L Blood Pressure [Right Arm] Blood Pressure Mean 78 Blood Pressure Mean [Right Arm] Blood Pressure Position [Right Arm] Pulse Oximetry 97 94 Oxygen Delivery Method Room Air Room Air Room Air Sepsis New/Unexplained Change in Mental Status N/A Sepsis Action Taken by Nursing No Action Required 06/07/23 11:16 06/07/23 11:30 06/07/23 11:30 Temperature Temperature Source Pulse Rate 80 85 Pulse Rate [Apical] Pulse Rate from SpO2 Sensor 83 Pulse Rhythm Regular Pulse Rhythm [Apical] Pulse Strength Pulse Strength [Apical] Respiratory Rate 20 15 Respiratory Effort / Characteristics Respiratory Depth Respiratory Pattern Blood Pressure 125/57 L Blood Pressure [Right Arm] Blood Pressure Mean 90 Blood Pressure Mean [Right Arm] Blood Pressure Position [Right Arm] Pulse Oximetry 94 96 Oxygen Delivery Method Room Air Sepsis New/Unexplained Change in Mental Status Sepsis Action Taken by Nursing 06/07/23 11:50 06/07/23 12:00 06/07/23 12:00 Temperature Temperature Source Pulse Rate 85 88 92 H Pulse Rate [Apical] Pulse Rate from SpO2 Sensor 80 85 Pulse Rhythm Pulse Rhythm [Apical] Pulse Strength Pulse Strength [Apical] Respiratory Rate 17 19 Respiratory Effort / Characteristics Respiratory Depth Respiratory Pattern Blood Pressure 125/71 Blood Pressure [Right Arm] Blood Pressure Mean 86 Blood Pressure Mean [Right Arm] Blood Pressure Position [Right Arm] Pulse Oximetry 93 95 Oxygen Delivery Method Sepsis New/Unexplained Change in Mental Status Sepsis Action Taken by Nursing 06/07/23 12:30 06/07/23 12:30 06/07/23 13:30 Temperature Temperature Source Pulse Rate 96 H Pulse Rate [Apical] 90 Pulse Rate from SpO2 Sensor 84 Pulse Rhythm Pulse Rhythm [Apical] Regular Pulse Strength Pulse Strength [Apical] Normal Respiratory Rate 18 18 Respiratory Effort / Characteristics Non-Labored Spontaneous Respiratory Depth Normal Respiratory Pattern Regular Blood Pressure 128/71 Blood Pressure [Right Arm] 124/71 Blood Pressure Mean 90 Blood Pressure Mean [Right Arm] 88 Blood Pressure Position [Right Arm] Sitting Pulse Oximetry 97 94 95 Oxygen Delivery Method Room Air Room Air Sepsis New/Unexplained Change in Mental Status Sepsis Action Taken by Nursing 06/07/23 14:00 06/07/23 14:36 06/07/23 15:00 Temperature Temperature Source Pulse Rate 84 116 H Pulse Rate [Apical] Pulse Rate from SpO2 Sensor 79 110 H 89 Pulse Rhythm Pulse Rhythm [Apical] Pulse Strength Pulse Strength [Apical] Respiratory Rate 17 22 Respiratory Effort / Characteristics Respiratory Depth Respiratory Pattern Blood Pressure Blood Pressure [Right Arm] Blood Pressure Mean Blood Pressure Mean [Right Arm] Blood Pressure Position [Right Arm] Pulse Oximetry 93 94 95 Oxygen Delivery Method Sepsis New/Unexplained Change in Mental Status Sepsis Action Taken by Nursing 06/07/23 15:30 06/07/23 15:40 06/07/23 15:40 Temperature Temperature Source Pulse Rate 82 Pulse Rate [Apical] Pulse Rate from SpO2 Sensor 80 89 Pulse Rhythm Pulse Rhythm [Apical] Pulse Strength Pulse Strength [Apical] Respiratory Rate 16 Respiratory Effort / Characteristics Respiratory Depth Respiratory Pattern Blood Pressure 116/59 L Blood Pressure [Right Arm] Blood Pressure Mean 86 Blood Pressure Mean [Right Arm] Blood Pressure Position [Right Arm] Pulse Oximetry 92 93 Oxygen Delivery Method Sepsis New/Unexplained Change in Mental Status Sepsis Action Taken by Nursing Laboratory Data 06/08/23 04:24 06/08/23 04:24 Lab Results 06/07/23 06/07/23 Range/Units 11:36 14:03 WBC 2.13 L (4.8-10.8) K/ul RBC 3.44 L (4.70-6.10) M/uL Hgb 9.9 L (14.0-18.0) g/dl Hct 30.5 L (42.0-52.0) % MCV 88.7 (80.0-100.0) fL MCH 28.8 (25.0-34.0) pg MCHC 32.5 (32.0-36.0) g/dL RDW Std Deviation 54.4 H (36.4-46.3) fL RDW Coeff of [place] 16.8 H (11.5-14.5) % Plt Count 202 (130-400) K/uL MPV 11.1 (9.4-12.4) fL Immature Gran % (Auto) 1.4 % Neut % (Auto) 42.3 % Lymph % (Auto) 23.9 % [place] % (Auto) 31.5 % Eos % (Auto) 0.0 % Baso % (Auto) 0.9 % Neut # (Auto) 0.90 L* (1.40-6.50) K/uL Lymph # (Auto) 0.51 L (1.20-3.40) K/uL [place] # (Auto) 0.67 H (0.11-0.59) K/uL Eos # (Auto) 0.00 (0.00-0.50) K/uL Baso # (Auto) 0.02 (0.00-0.20) K/uL Immature Gran # (Auto) 0.03 (0.01-0.20) K/uL Toxic Granulation 1+ Dohle Bodies 1+ Polychromasia 1+ PT 14.5 H (9.0-12.0) Seconds INR 1.3 H (0.9-1.1) APTT 36 H (21-31) Seconds PTT Ratio 1.3 Sodium 130 L (136-145) mmol/L Potassium 3.8 (3.5-5.1) mmol/L Chloride 99 (98-107) mmol/L Carbon Dioxide 22 (21-32) mmol/L Anion Gap 9 (3-11) BUN 15 (6-23) mg/dl Creatinine 0.88 (0.6-1.4) mg/dl Est Cr Clr Drug Dosing 90.0 ml/min Est GFR ( Amer) 100.2 ml/min Est GFR (Non-Af Amer) 86.4 ml/min BUN/Creatinine Ratio 17.0 (10-20) Glucose 109 H (70-99(Fasting)) mg/dl Osmolality 271 L (280-300) mOsm/kg Lactate 1.7 (0.4-2.0) mmol/L Calcium 8.6 (8.6-10.3) mg/dl Magnesium 1.9 (1.7-2.4) mg/dl Total Bilirubin 0.8 (0.2-1.0) mg/dl AST 43 H (13-39) U/L ALT 32 (7-52) U/L Alkaline Phosphatase 61 (34-104) U/L Troponin I High Sens 24.1 H 17.8 D (0-20) pg/ml Total Protein 6.4 (6.0-8.3) gm/dl Albumin 3.4 (3.4-5.0) gm/dl Globulin 3.0 (2.5-4.0) gm/dl Albumin/Globulin Ratio 1.1 (0.9-2) Procalcitonin 0.31 (0-0.5) ng/ml Administered Medications Allopurinol (Allopurinol 100 Mg Tab) 100 mg PO BID [facility] Stop: 07/07/23 20:59 Last Admin: 06/08/23 08:21 Dose: 100 mg Documented By: Admin: 06/07/23 20:24 Dose: 100 mg Documented By: SHANELL Fluticasone Furoate (Fluticasone Furoate 200mcg 14 Puffs/Inhaler) 1 puffs INH DAILY [facility] Stop: 07/08/23 08:59 Last Admin: 06/08/23 08:22 Dose: 1 puffs Documented By: AMALIA Fluticasone Propionate (Fluticasone Propionate Na Spr 16 Gm Btl) 2 sprays NA DAILY [facility] Stop: 07/08/23 08:59 Last Admin: 06/08/23 08:23 Dose: 2 sprays Documented By: AMALIA Gabapentin (Gabapentin 100 Mg Cap) 200 mg PO TID [facility] Stop: 07/07/23 20:59 Last Admin: 06/08/23 14:24 Dose: 200 mg Documented By: Admin: 06/08/23 08:23 Dose: 200 mg Documented By: Admin: 06/07/23 20:25 Dose: 200 mg Documented By: SHANELL Guaifenesin/Codeine Phosphate (Guaifenesin/Codeine 200mg/20mg 10ml Udc) 10 ml PO Q6H PRN PRN Reason: Cough Stop: 07/07/23 18:00 Last Admin: 06/07/23 19:04 Dose: 10 ml Documented By: DEEPIKA Heparin Sodium/Dextrose (Heparin Sodium/Dextrose) 25,000 units in 500 mls @ 20 mls/hr IV .Q24H [facility]; Protocol Stop: 07/08/23 09:29 Last Admin: 06/08/23 10:19 Dose: 1,000 units/hr, 20 mls/hr Documented By: AMALIA Co-signed By: MARGARET Insulin Aspart (Insulin Aspart Per Unit Charge) 0 units SC ACHS [facility] Stop: 07/07/23 20:59 Last Admin: 06/08/23 14:35 Dose: Not Given Documented By: AMALIA Co-signed By: FLAVIO Admin: 06/08/23 09:51 Dose: Not Given Documented By: AMALIA Co-signed By: MARGARET Admin: 06/07/23 20:37 Dose: Not Given Documented By: SHANELL Co-signed By: NELA Ipratropium [place] (Ipratropium [place] Neb Soln 0.02% 2.5 Ml Vial) 0.5 mg INH Q6R PRN PRN Reason: SOB OR WHEEZING Stop: 07/08/23 12:08 Last Admin: 06/08/23 14:19 Dose: 0.5 mg Documented By: AMALIA Levalbuterol HCl (Levalbuterol 1.25 Mg/3 Ml Neb) 1.25 mg NEB Q6R PRN PRN Reason: SOB OR WHEEZING Stop: 07/08/23 12:08 Last Admin: 06/08/23 14:23 Dose: 1.25 mg Documented By: AMALIA Losartan Potassium (Losartan Potassium 25 Mg Tab) 12.5 mg PO DAILY [facility] Stop: 07/08/23 08:59 Last Admin: 06/08/23 08:24 Dose: 12.5 mg Documented By: AMALIA Metoprolol Succinate (Metoprolol Succ 50mg Ext Rel Tab) 50 mg PO DAILY [facility] Stop: 07/08/23 08:59 Last Admin: 06/08/23 08:25 Dose: 50 mg Documented By: AMALIA Pantoprazole Sodium (Pantoprazole 40 Mg Tab) 40 mg PO QAM [facility] Stop: 07/08/23 08:59 Last Admin: 06/08/23 08:26 Dose: 40 mg Documented By: AMALIA Prednisone (Prednisone 5 Mg Tab) 5 mg PO DAILY [facility] Stop: 07/08/23 08:59 Last Admin: 06/08/23 08:26 Dose: 5 mg Documented By: AMALIA Rosuvastatin Calcium (Rosuvastatin Calcium 20 Mg Tab) 20 mg PO HS [facility] Stop: 07/07/23 20:59 Last Admin: 06/07/23 20:25 Dose: 20 mg Documented By: SHANELL Umeclidinium/Vilanterol (Umeclidinium/Vilanterol 62.5/25mcg 7 Puffs/Inhaler) 1 puffs INH DAILY [facility] Stop: 07/08/23 08:59 Last Admin: 06/08/23 08:27 Dose: 1 puffs Documented By: AMALIA Warfarin Sodium (Warfarin Sod 4 Mg Tab) 4 mg PO DAILY@1600 [facility] Stop: 07/07/23 18:14 Last Admin: 06/07/23 20:23 Dose: 4 mg Documented By: SHANELL Discontinued Medications Albuterol (Albut/Ipratrop 3mg/0.5mg Neb 3 Ml Vial) 3 ml NEB ONE ONE; Protocol Stop: 06/07/23 20:16 Last Admin: 06/07/23 20:20 Dose: 3 ml Documented By: SHANELL Furosemide (Furosemide 40 Mg/4 Ml Vial) 40 mg IV ONE ONE Stop: 06/08/23 08:10 Last Admin: 06/08/23 08:19 Dose: 40 mg Documented By: AMALIA Sodium Chloride (Nss) 1,000 mls @ 80 mls/hr IV .[id number] [facility] Stop: 06/08/23 06:30 Last Infusion: 06/08/23 08:28 Dose: Infused Documented By: Admin: 06/07/23 20:20 Dose: 80 mls/hr Documented By: SHANELL Imaging Data Radiologist's Impression: Chest X-Ray 06/07/23 11:16 SINGLE VIEW CHEST CLINICAL HISTORY: Sepsis. FINDINGS: An AP, portable, upright chest radiograph is compared to study dated 02/02/2023. The examination is degraded by portable technique and patient rotation. A right subclavian central venous infusion port and a 2-lead cardiac AICD are unchanged in position. The heart is enlarged noting atherosclerotic calcification of the thoracic aorta. There is mild pulmonary vascular congestion. Emphysema and chronic interstitial thickening similar to previous. There is bibasilar scarring/atelectasis. Question small pleural effusions. Foci of parenchymal scarring are seen throughout both lungs. No pneumothorax is seen. The skeletal structures are osteopenic. The bony thorax is grossly intact. Degenerative change is noted in the shoulders and spine. IMPRESSION: 1. Cardiomegaly and AICD with mild pulmonary vascular congestion. 2. Emphysema. 3. Question small pleural effusions. ACT 112: Negative or not required by law. Electronically signed by: Jamaal Dunn M.D. 06/07/2023 11:58 AM Discharge Plan Visit Data Chief Complaint: Shortness of Breath/Dyspnea Stated Complaint: SOB, BAD COUGH, SWEATS ED Provider: Ryanne Sanchez Discharge Problem: Respiratory syncytial virus (RSV) infection Patient Disposition: Admitted As Inpatient Discharge Instructions Interventions: ED Discharge Assessment Last Done: 06/07/23 18:02
[2023-06-07 12:21] LABS: Albumin Globulin Ratio 1.1 (0.9-2); Albumin Level 3.4 gm/dl (3.4-5.0); Bilirubin,Total 0.8 mg/dl (0.2-1.0); Calcium 8.6 mg/dl (8.6-10.3); Est GFR (African American) 100.2 ml/min; Est GFR (Non-African American) 86.4 ml/min; Magnesium 1.9 mg/dl (1.7-2.4); Potassium 3.8 mmol/L (3.5-5.1); Total Protein 6.4 gm/dl (6.0-8.3)
[2023-06-07 12:26] LABS: INR 1.3 (0.9-1.1); Partial Thromboplastin Ratio 1.3; Partial Thromboplastin Time 36 Seconds (21-31); Prothrombin Time 14.5 Seconds (9.0-12.0)
[2023-06-07 12:27] LABS: Troponin I High Sensitivity 24.1 pg/ml (0-20)
[2023-06-07 12:29] LABS: Hematocrit (blood only) 30.5 % (42.0-52.0); Hemoglobin 9.9 g/dl (14.0-18.0); Mean Corpuscular Hemoglobin 28.8 pg (25.0-34.0); Mean Corpuscular Hgb Conc 32.5 g/dL (32.0-36.0); Mean Corpuscular Volume 88.7 fL (80.0-100.0); Mean Platelet Volume 11.1 fL (9.4-12.4); Platelet Count 202 K/uL (130-400); RDW Coefficient of Variation 16.8 % (11.5-14.5); RDW Standard Deviation 54.4 fL (36.4-46.3); Red Blood Count 3.44 M/uL (4.70-6.10); White Blood Count 2.13 K/ul (4.8-10.8)
[2023-06-07 12:33] LABS: Dohle Bodies 1+; Polychromasia 1+; Toxic Granulation 1+
[2023-06-07 12:34] LABS: Basophils # (auto) 0.02 K/uL (0.00-0.20); Basophils % (auto) 0.9 %; Immature Granulocytes # (auto) 0.03 K/uL (0.01-0.20); Immature Granulocytes % (auto) 1.4 %; Lymphocytes # (auto) 0.51 K/uL (1.20-3.40); Lymphocytes % (auto) 23.9 %; Monocytes # (auto) 0.67 K/uL (0.11-0.59); Monocytes % (auto) 31.5 %; Neutrophils % (auto) 42.3 %
[2023-06-07 14:42] LABS: Adenovirus PCR Not Detected (NotDetected); Bordetella parapertussis PCR Not Detected (NotDetected); Bordetella pertussis PCR Not Detected (NotDetected); Chlamydia pneumoniae PCR Not Detected (NotDetected); Coronavirus 229E PCR Not Detected (NotDetected); Coronavirus CoV-2 (COVID19)PCR Not Detected (NotDetected); Coronavirus HKU1 PCR Not Detected (NotDetected); Coronavirus NL63 PCR Not Detected (NotDetected); Coronavirus OC43PCR Not Detected (NotDetected); Human Metapneumovirus PCR Not Detected (NotDetected); Influenza A PCR Not Detected (NotDetected); Influenza B PCR Not Detected (NotDetected); Mycoplasma pneumoniae PCR Not Detected (NotDetected); Parainfluenza Virus 1 PCR Not Detected (NotDetected); Parainfluenza Virus 2 PCR Not Detected (NotDetected); Parainfluenza Virus 3 PCR Not Detected (NotDetected); Parainfluenza Virus 4 PCR Not Detected (NotDetected); Rhinovirus/Enterovirus PCR Not Detected (NotDetected)
--- OUTSIDE RECORDS SUMMARY | 2023-06-07 14:44 | External Medical Summary | Summary of Care ---
Author Name Unknown Organization [facility] Address [address] [place] [address] Phone [phone] Care Team Providers Care Polygraph Examiner Name Role Phone Konrad Reinoso MD Primary Care Provider + Encounter Details Date Type Department Care Team (Late st Contact Info) Description 04/26/2023 Result Scan Unspecified Department <No scans attached> Allergies Active Allergy Reactions Criticality Noted Date Comments Doxycycline Nausea/vomiting 05/12/2021 Caused dry heaves. REMOVED PER PT REQUEST DENIES TRUE ALLERGY. documented as of this encounter (statuses as of 06/01/2023) Medications Medication Sig Dispensed Refills Start Date End Date Status B Complex TabletIndications:Alcoho l ingestion, 1-4 drinks per day Take 1 Tablet by mouth in the morning. 0 06/19/19 18 Active Nebulizers (NEBULIZER COMPRESSOR) MISCIndications:COPD exacerbation (HCC) Inhale via nebulizer. Use as directed. 1 Each 1 05/15/20 19 Active Skin Protectants, Misc. (EUCERIN,DERMACERIN) cream Apply topically to affected area daily. To affected area of skin. 240 g 11 02/26/20 20 Active BIPAP every night at bedtime. 0 Active Sennosides-Docusate Sodium 8.6-50 MG Oral TabletIndications:Other constipation Take by mouth . HOLD UNTIL DIARRHEA RESOLVED 60 Tablet 5 12/30/19 22 Active Docusate Sodium 100 MG Oral Capsule (Colace) Take 1 Capsule by mouth in the morning and 1 Capsule before bedtime. HOLD UNTIL DIARRHEA RESOLVED. 10 Capsule 0 12/30/19 22 Active Misc. Devices Dispense one pair custom extra depth shoes with rigid insert left, consider rocker bottom. Can call to discuss. Diagnosis: non union left midfoot fusion, pain in feet, type II DM 1 Each 0 02/03/20 22 Active guaiFENesin ER 600 MG Oral Tablet Extended Release 12 Hour Take 1 Tablet by mouth in the morning and 1 Tablet before bedtime. 0 Active Magnesium 250 MG Oral Tablet Take 1 Tablet by mouth in the morning and 1 Tablet before bedtime. 30 Tablet 0 05/25/20 22 Active Montelukast Sodium 10 MG Oral Tablet (Singulair)Indications:P ersistent asthma without complication, unspecified asthma severity TAKE ONE TABLET BY MOUTH AT BEDTIME 90 Tablet 3 11/17/19 23 024 Active Albuterol Sulfate HFA 108 (90 Base) MCG/ACT Inhalation Aerosol SolutionIndications:Pers istent asthma without complication, unspecified asthma severity INHALE TWO PUFFS BY MOUTH EVERY SIX HOURS NEEDED FOR SHORTNESS OF BREATH OR WHEEZING 54 g 1 11/17/19 23 024 Active Omeprazole 20 MG Oral Capsule Delayed Release (PriLOSEC)Indications:Ga stroesophageal reflux disease without esophagitis TAKE ONE CAPSULE BY MOUTH EVERY DAY 1 HOUR BEFORE THE FIRST MEAL OF THE DAY 100 Capsule 1 11/16/19 23 024 Active Rosuvastatin Calcium 20 MG Oral Tablet (Crestor)Indications:Janie vated glucose,Pure hypercholesterolemia TAKE ONE TABLET BY MOUTH DAILY 100 Tablet 1 11/16/19 23 024 Active metFORMIN HCl ER 500 MG Oral Tablet Extended Release 24 Hour (Glucophage XR)Indications:Elevated glucose TAKE ONE TABLET BY MOUTH TWICE A DAY IN THE MORNING AND BEFORE BEDTIME 200 Tablet 1 11/16/19 23 024 Active Warfarin Sodium 2 MG Oral Tablet (Coumadin)Indications:Id iopathic cardiomyopathy (HCC),Biventricular implantable cardioverter-defibrillat or in situ TAKE 2 TO 2 1/2 TABLETS BY MOUTH EVERY EVENING DIRECTED BY ANTICOAGULATION CLINIC 270 Tablet 3 11/16/19 23 024 Active Fluticasone Propionate 50 MCG/ACT Nasal Suspension (Flonase) USE 2 SPRAYS INTO EACH NOSTRIL ONCE DAILY. 48 g 1 12/27/19 23 Active Xenesortsid-Byfczolby-On lant 200-62.5-25 MCG/ACT Aerosol Powder Breath Activated (Trelegy Ellipta)Indications:COPD exacerbation (HCC) INHALE ONE PUFF BY MOUTH DAILY. RINSE MOUTH AFTER USE 180 Each 3 02/24/20 23 Active Furosemide 40 MG Oral Tablet (Lasix)Indications:Histo ry of cardiomyopathy Take 1 Tablet by mouth 2 times a day. Plus an extra tablet daily in the morning as needed 300 Tablet 3 03/08/20 23 Active Metoprolol Succinate ER 50 MG Oral Tablet Extended Release 24 Hour (Toprol XL) Take 1 Tablet by mouth in the morning. 100 Tablet 3 03/08/20 23 Active Losartan Potassium 25 MG Oral Tablet (Cozaar)Indications:HTN, goal below 140/90 Take 0.5 Tablets by mouth in the morning. 50 Tablet 1 04/14/20 23 Active dexAMETHasone 4 MG Oral Tablet (Decadron) 0 01/31/20 23 Active Cephalexin 500 MG Oral Capsule (Keflex) TAKE 1 CAPSULE ORALLY FOUR TIMES DAILY FOR 7 DAYS 0 04/18/20 23 Active Leuprolide Acetate (6 Month) 45 MG Intramuscular Kit (Lupron) 45 mg. 0 12/20/19 23 Active Ondansetron HCl 8 MG Oral Tablet (Zofran) Take 1 Tablet by mouth. 0 01/31/20 23 Active Hospital, Clinic, or Other Facility Administered Medication Ordered Dose Route Frequency Start Date End Date Status Albuterol Sulfate (Proventil) (2.5 MG/3ML) 0.083% inhalation solution 2.5 mgIndications:COPD, group D, by GOLD 2017 classification ([facility]) 2.5 mg NEBULIZER PRN 01/14/2023 01/14/2024 Acti ve Albuterol Sulfate (Proventil) (5 MG/ML) 0.5% *conc* inhalation solution 2.5 mgIndications:COPD, group D, by GOLD 2017 classification ([facility]) 2.5 mg NEBULIZER PRN 01/14/2023 01/14/2024 Acti ve documented as of this encounter (statuses as of 06/01/2023) Active Problems Problem Noted Date Diagnosed Date Hypertensive heart disease w ith chronic diastolic congestive heart failure 10/27/2022 Chronic diastolic (congestive) heart failure Last Assessment & Plan: Current Status: "Stable" for patient / At or near baseline Degree of Condition Awareness: Demonstrates very good awareness of condition, disease course, and prognosis "RED FLAG" HF Symptoms: o Leg Swelling (Examples: "I can't wear certain socks or shoes", "My pants feel tight") Current Heart Failure Classifications: o With ordinary activity such as doing housework, yard work or shopping ([facility] [place] [facility] CLASS II) Diagnostic Review: Recent Labs Units 05/10/22 1338 03/30/22 1401 11/22/21 0426 11/20/21 1419 BNP (NT-PRO-BNP) - [facility] pg/mL -- -- -- 195 ESTIMATED GLOMERULAR FILTRATION RATE - [facility] mL/min -- 63 < > >90 EGFR-OUTSIDE LAB -- -- < > -- HGB - [facility] g/dL 13.3* -- < > 11.8* HEMOGLOBIN-OUTSIDE LAB -- -- < > -- < > = values in this interval not displayed. Medication Regimen: o Beta Luca Therapy: Carvedilol o MACEY Inhibitor/ARB Therapy: Losartan o Diuretic therapy: Lasix Self - Management Plan o Avoid excessive fluid intake and avoid salty, processed food o Weigh daily Exacerbation Plan o Has not required home advanced interventions for heart failure Prostate cancer 08/26/2021 Last Assessment & Plan: Last seen by Dr. Crump in 08/2021. Pt reports he wants surgical prostatectomy and urology set him up for RT which he does not want. Denies any urinary symptoms. He reports he is in discussion with pcp about follow up elsewhere. Component Latest Ref Rng 03/30/2022 2:01 PM PSA <4.10 ng/mL 17.05 (H) (H) High HTN, goal below 140/90 08/26/2021 Prostate nodule 03/23/2021 History of 2019 novel coronavirus disease (COVID -19) 08/14/2020 COPD, group D, by GOLD 2017 classification 03/25 Overview: Per COPD GOLD Classification Last Assessment & Plan: Current Status : "Stable" for patient / At or near baseline Degree of Condition Awareness: Demonstrates very good awareness of condition, disease course, and prognosis "RED FLAG" COPD symptoms: o NO IDENTIFIED SYMPTOMS Medication Regimen o All Classes - MONY o Class D - Inhaled [id number] Combination Inhaler (Trellegy) Self-Management plan o High frequency nebulizer treatments every 4-6 hours around the clock Exacerbation plan o Has not required in home advanced interventions Type 2 diabetes mellitus with diabetic neuropath y 12/24/2018 Last Assessment & Plan: Current Status: "Stable" for patient / At or near baseline Degree of Condition Awareness: Demonstrates very good awareness of condition, disease course, and prognosis "RED FLAG" Diabetic symptoms: o none Goal HgbA1c o <8 Diabetic Complications o Neurologic (example: Peripheral Neuropathy) Medication Regimen o Metformin DM Secondary Prevention o MACEY Inhibitor / ARB o Moderate-High Intensity Statin o Aspirin Gastroesophageal reflux disease without esophagi tis 12/24/2018 ANGELICA treated with BiPAP 12/24/2018 Biventricular cardiac pacemaker in situ 12/18/19 19 History of cardiomyopathy 09/24/2018 History of tobacco use 05/07/2018 Hilar enlargement 05/07/2018 Centrilobular emphysema 05/07/2018 Elevated prostate specific antigen (PSA) 018 Pure hypercholesterolemia 12/11/2015 Type 2 diabetes mellitus wit h hemoglobin A1c goal of less than 7.0% 11/05/2014 Overview: ICD-10 update of inactive term Gout 04/02/2014 Idiopathic cardiomyopathy 05/29/2013 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 Sinai Reyes Study contact: Theresa Mendes, Factory Supervisor I - [id number] COPD, group A, by GOLD 2017 classification 05/07/2018 11/21/2018 Overview: Per COPD GOLD Classification Chronic cough 05/07/2018 03/17/2021 SOB (shortness of breath) 05/07/2018 Elevated glucose 08/08/2014 11/05/2014 Metabolon Quantose IR Resear Study*[id number] 02/04/2014 04/23/2014 Overview: METABOLON QUANTOSE IR STUDY. PROJECT: #[id number], PHOTOSTAT OPERATOR HELPER: King Bolaños MD/ Siva Martin MD. SUMMARY: The Use of a Novel Insulin Resistance Test as a Monitoring Indicator of Glycemic Control in Prediabetics and Diabetics treated with metformin combined with lifestyle intervention. CONTACTS: During normal business hours, contact Josephine Costa RN, BSN at ; after hours Diamond Assorter via the [facility] hospital composition board press operator Heart failure, systolic, due to idiopathic cardiomyopathy 09/26/2011 05/01/2013 Dyslipidemia, goal LDL below 100 05/06/2011 12/11/2015 Dyslipidemia, goal LDL below 130 05/07/2010 05/06/2011 Heart failure, left-sided 04/19/2010 assisted current use of ant icoagulant therapy 04/19/2010 05/10/2022 Overview: ICD-10 update of inactive term Swelling, mass, or lump in chest 06/19/2017 documented as of this encounter (statuses as of 06/01/2023) Immunizations Name Administration Dates Next Due COVID-19 mRNA, LNP-s, No Pre serve, 2-Dose Series (Spoqa) 03/10/2021,08/29/2020,08/08/2020 PPD 02/04/2013 Pneumococcal Conjugate Vacc, 13 Valent (Prevnar) 12/15/2016 Pneumococcal Polysaccharide PPV23 (Pneumovax) 05/12/2020,05/12/2015 Season Influenza, Quad, PF, Adjuvanted, 65+ Yrs, IM (FLUAD) 03/19/2020 Seasonal Influenza, PF, 6 M & above, IM , (FluLaval or Fluzone) 03/19/2018,06/19/2017 Seasonal Influenza, Quadriva lent Hd (Fluzone Hd) 03/14/2023,03/22/2022,02/18/2021 Seasonal Influenza, Quadriva lent, No Preserve, IM 03/30/2015 Seasonal Influenza, Trivalen t, Adjuvanted, 65+ yrs 07/01/2019 TDAP (age 10 and older)(Boostrix) 05/23/2022 TDAP (age 11 and older)(Adacel) 10/18/2010 10/18/2020 Varicella Zoster Vaccine (Adult) 02/05/2014 Zoster Vaccine Recombinant (Shingrix) 09/02/2019 ,07/02/2019 documented as of this encounter Social History Tobacco Use Types Packs/Day Years Used Date Smoking Tobacco: Former Cigarettes 2 35 Q uit: 04/12/2008 Smokeless Tobacco: Never Comments:Second hand smoke e xposure significant Alcohol Use Standard Drinks/Week Comments Yes 2.5 (1 standard drin k = 0.6 oz pure alcohol) occasional; heavy drinking history 25 years ago PHQ-2 Answer Date Recorded PHQ Adult Total Score 0 11/08/2022 Hunger Vital Sign Answer Date Recorded Within the past 12 months, y ou worried that your food would run out before you got the money to buy more. Never true 11/09/19 23 Within the past 12 months, t he food you bought just didn't last and you didn't have money to get more. Never true 11/08/2022 Sex and Gender Information Value Date Recorded Sex Assigned at Male 12/24/2018 8:09 AM EDT Gender Identity Male 12/24/2018 8:09 AM EDT Sexual Orientation Straight 12/24/2018 8: 09 AM EDT Job Start Date Occupation Industry Not on file Not on file Not on file documented as of this encounter Functional Status Functional Status Response Date of Assess ment Are you deaf or do you have serious difficulty h earing? No 11/19/2021 Are you blind or do you have serious difficulty seeing, even when wearing glasses? No 11/19/2021 Do you have serious difficul ty walking or climbing stairs? (5 years old or older) Yes 11/20/2021 Do you have difficulty dress ing or bathing? (5 years old or older) No 11/19/2021 Because of a physical, menta l, or emotional condition, do you have difficulty doing errands alone such as visiting a doctor s office or shopping? (15 years old or older) No 11/20/19 22 Cognitive Status Response Date of Assessm ent Because of a physical, menta l, or emotional condition, do you have serious difficulty concentrating, remembering, or making decisions? (5 years old or older) No 11/19/2021 documented as of this encounter Plan of Treatment Upcoming Encounters Date Type Department Care Team (Late st Contact Info) Description 06/14/2023 10:40 AM EST Office Visit General Internal Medicine [facility] [address] [facility] [place] [address] Konrad Reinoso MD [address] [facility] [place] [address] 06/14/2023 11:30 AM EST Anticoagulation Pharmacy, [facility] [place] [address] [facility] [place] [address] Pharmacist1, [facility] [address] [facility] [place] [address] 09/19/2023 8:30 AM EDT Office Visit [facility] [place] [address] [place] [id number] Jenny Rios CRNP [address] [place] [address] Health Maintenance Due Date Last Done Comments Cologuard 1996 Fecal Occult Blood Test 1996 Sigmoidoscopy 1996 Hepatitis B (1 of 3 - Risk 3-dose series) 2011 *ADVANCE DIRECTIVE NOT ON FILE 01/12/2020 Colonoscopy 10/01/2020 10/01/2010 Colorectal Cancer Screening 10/01/2020 COVID-19 Vaccine ( season) 2023 03/10/2021, 08/29/2020, 08/08/2020 Albumin/Creatinine Ratio 05/10/2023 022, 02/18/2021, 07/24/2019, Additional history exists B-12 05/10/2023 05/10/2022, 0902/2021, 12/30/2019, Additional history exists HbA1c 05/11/2023 11/08/2022, 04/13, 08/26/2021, Additional history exists Depression Screening 11/09/2023 11/08/2022, 11/06/19 15 Diabetic Foot Exam 11/09/2023 11/08/2022, 0 08/26/2021, 12/30/2019, Additional history exists Diabetic Eye Exam 12/13/2023 12/12/2022, , 08/25/2020, Additional history exists GFR 03/15/2024 03/15/2023, 10/12, 10/13/2022, Additional history exists O2 ASSESSMENT COMPLETED IN PAST YEAR FOR COPD 04/25/2024 04/25/2023 Lipid Panel 08/12/2027 08/11/2022, 08/10, 08/14/2020, Additional history exists DTaP,Tdap,and Td Vaccines (3 - Td or Tdap) 05/23/2032 05/23/2022, 10/18/2010 AAA Screening Completed 12/28/2016 Zoster Vaccines Completed 09/02/2019, 06/13, 02/05/2014 Alpha-1 Antitrypsin Completed 02/06/2020 Pneumococcal Vaccine: 65+ Years Completed 05/12/2020, 12/15/2016, 05/12/2015 Influenza Vaccine (FLU shot) Completed 08/2022, 03/22/2022, 02/18/2021, Additional history exists GARDASIL-HPV IMMUNIZATION SERIES Aged Out No longer eligible based on patient's age to complete this topic MENINGOCOCCAL (MENACTRA/MENVEO) Aged Out No longer eligible based on patient's age to complete this topic documented as of this encounter Medical Devices Implanted Type Area Operations Scheduler Device Identifier Shelf Expiration Date Model / Serial / Lot Vitoss Bbtrauma Foam Pack 1c - [id number] - [id number] Implanted:Qty: 1 on 04/09/2021 by Sandrine Ribeiro DPM at OR [facility] Left: Foot WES : ORTHOPAEDICS [id number] 06/08/2022 [id number] / [id number] / [id number] documented as of this encounter Procedures Procedure Name Priority Date/Time Associated Diagnosis Comments RADIOLOGY SCANNED RESULT 04/26/2023 documented in this encounter Results * RADIOLOGY SCANNED RESULT (04/26/2023) 04/26/2023 No Physician Data Unknown DIAGNOSTIC RAD IOLOGY SERVICES documented in this encounter Advance Directives Latest Code Status on File Code Status Date Activated Date Inactivated Comments Full Code 11/19/2021 9:14 AM 11/26/2021 2:59 PM This order reflects the patients wishes and were consensually agreed upon. Question Answer Comments Discussion of Advance Directives occurred with: Patient Code Status History Code Status Date Activated Date Inactivated Comments Full Code 01/08/2013 3:34 PM 01/09/2013 2:24 PM This order reflects the patients wishes and were consensually agreed upon. Question Answer Comments Discussion of Advance Directives occurred with: Not Discussed Does the patient have a Living Will? No Does the patient have Health Care Power of Animal Feeder? No Care Teams Polygraph Examiner Relationship Specialty Start Date End Date Konrad Reinoso MD [address] [facility] [place] [address] PCP - General Internal Medicine 08/15/17 documented as of this encounter
--- OUTSIDE RECORDS SUMMARY | 2023-06-07 14:44 | External Medical Summary | Summary of Care ---
Author Name Unknown Organization [facility] Address [address] [place] [address] Phone [phone] Care Team Providers Care Art Glass Setter Name Role Phone Konrad Reinoso MD Primary Care Provider + Encounter Details Date Type Department Care Team (Latest Contact Info) Description 05/29/2023 4:31 PM EST - 05/29/2023 11:59 PM EST Hospital Encounter Radiology Film File [address] [place] [address] Arrived Discharge Disposition: Home - Self Care Allergies Active Allergy Reactions Criticality Noted Date Comments Doxycycline Nausea/vomiting 05/12/2021 Caused dry heaves. REMOVED PER PT REQUEST DENIES TRUE ALLERGY. documented as of this encounter (statuses as of 05/30/2023) Medications Medication Sig Dispensed Refills Start Date [...] DAILY. 48 g 1 12/27/19 23 Active Obvtganyffm-Omxhifern-Sr lant 200-62.5-25 MCG/ACT Aerosol Powder Breath Activated [...] Tablet by mouth. 0 01/31/20 23 Active oxyCODONE-Acetaminophen 5-325 MG Oral Tablet (Percocet)Indications:Rivas rdware complicating wound infection, sequela,Subacute osteomyelitis of left foot (HCC) Take 1 Tablet by mouth every 8 hours as needed (Pain). 24 Tablet 0 04/28/20 23 Active Albuterol Sulfate (2.5 MG/3ML) 0.083% Inhalation Nebulization Solution (Proventil)Indications:C OPD exacerbation (HCC),Persistent asthma without complication, unspecified asthma severity INHALE THE CONTENTS OF 1 VIAL VIA NEBULIZER EVERY 4 HOURS NEEDED FOR WHEEZING 1620 mL 1 05/03/20 23 024 Active Gabapentin 100 MG Oral Capsule (Neurontin) TAKE TWO CAPSULES BY MOUTH THREE TIMES A DAY -- MORNING, NOON, AND BEFORE BEDTIME 600 Capsule 1 05/15/20 23 024 Active Allopurinol 100 MG Oral Tablet (Zyloprim)Indications:Id iopathic gout, unspecified chronicity, unspecified site TAKE ONE TABLET BY MOUTH TWICE A DAY IN THE MORNING AND BEFORE BEDTIME 200 Tablet 1 05/26/20 23 024 Active Hospital, Clinic, or Other Facility Administered Medication Ordered Dose Route Frequency Start Date End Date Status Albuterol Sulfate (Proventil) (2.5 MG/3ML) 0.083% inhalation solution 2.5 mgIndications:COPD, group D, by GOLD 2017 classification ([facility]) 2.5 mg NEBULIZER PRN 01/14/2023 01/14/2024 Acti ve Albuterol Sulfate (Proventil) (5 MG/ML) 0.5% *conc* inhalation solution 2.5 mgIndications:COPD, group D, by GOLD 2017 classification ([facility]) 2.5 mg NEBULIZER PRN 01/14/2023 01/14/2024 Acti ve documented as of this encounter (statuses as of 05/30/2023) Active Problems Problem Noted Date Diagnosed Date [...] - MONY o Class D - Inhaled Kpdgacxtmaqzdp-RNLC-MXUN Combination Inhaler (Cjllegy) Self-Management plan o High frequency nebulizer treatments [...] as of this encounter (statuses as of 05/30/2023) Resolved Problems Problem Noted Date Diagnosed Date Resolved Date Acute osteomyelitis 11/26/2021 05/10/20 22 Hardware complicating wound infection 11/21/2021 05/10/2022 Left foot infection 11/19/2021 05/10/20 22 Orthopedic hardware present 11/19/2021 11/26/2021 STAGES Research Study*[id number] 07/11/2018 12/24/2018 Overview: [place] [employer] in Sleep (STAGES) - IRB# [id number] PI: Dr. Sinai Reyes Study contact: Theresa Mendes, Reshipping Clerk I - [id number] COPD, group A, by GOLD 2017 classification 05/07/2018 11/21/2018 Overview: Per COPD GOLD Classification Chronic cough 05/07/2018 03/17/2021 SOB (shortness of breath) 05/07/2018 Elevated glucose 08/08/2014 11/05/2014 Metabolon Quantose IR Resear Study*[id number] 02/04/2014 04/23/2014 Overview: METABOLON QUANTOSE IR STUDY. PROJECT: #[id number], [employer] MACHINE OPERATOR: King Bolaños MD/ Siva Martin MD. SUMMARY: The Use of a Novel Insulin Resistance Test as a Monitoring Indicator of Glycemic Control in Prediabetics and Diabetics treated with metformin combined with lifestyle intervention. CONTACTS: During normal business hours, contact Josephine Costa RN, BSN at ; after hours Ski Patrol Officer via the [facility] hospital air compressor operator Heart failure, systolic, due to idiopathic cardiomyopathy 09/26/2011 05/01/2013 Dyslipidemia, goal LDL below 100 05/06/2011 12/11/2015 Dyslipidemia, goal LDL below 130 05/07/2010 05/06/2011 Heart failure, left-sided 04/19/2010 mathematics academic chair current use of ant icoagulant therapy 04/19/2010 05/10/2022 Overview: ICD-10 update of inactive term Swelling, mass, or lump in chest 06/19/2017 documented as of this encounter (statuses as of 05/30/2023) Immunizations Name Administration Dates Next Due COVID-19 mRNA, LNP-s, No Pre serve, 2-Dose Series (Mediastream) 03/10/2021,08/29/2020,08/08/2020 PPD 02/04/2013 Pneumococcal Conjugate Vacc, 13 [...] (15 years old or older) No 11/20/19 Cognitive Status Response Date of Assessm ent Because of a physical, menta l, or emotional condition, do you have serious difficulty concentrating, remembering, or making decisions? (5 years old or older) No 11/19/2021 documented as of this encounter Plan of Treatment Upcoming Encounters Date Type Department Care Team (Late st Contact Info) Description 06/14/2023 10:40 AM EST Office Visit General Internal Medicine [facility] [place] [address] [place] [address] Konrad Reinoso MD [address] [place] [address] 06/14/2023 11:30 AM EST Anticoagulation Pharmacy, [facility] [address] [facility] [place] [address] Pharmacist1, [facility] [address] [place] [address] 09/19/2023 8:30 AM EDT Office Visit [facility] [address] [place] [phone] Jenny Rios CRNP [address] [place] [phone] Health Maintenance Due Date Last Done Comments [...] 08/25/2020, Additional history exists GFR 03/15/2024 03/15/2023, 05, 10/13/2022, Additional history exists O2 ASSESSMENT COMPLETED [...] this encounter Medical Devices Implanted Type Area Structural Engineering Project Manager Device Identifier Shelf Expiration Date Model / Serial / Lot Vitoss Bbtrauma Foam Pack 1c - [id number] - [id number] Implanted:Qty: 1 on 04/09/2021 by Sandrine Ribeiro DPM at [facility] Left: Foot WES : ORTHOPAEDICS [id number] 06/08/2022 [id number] / [id number] / [id number] documented as of this encounter Procedures Procedure Name Priority Date/Time Associated Diagnosis Comments RADIOLOGY EXAM - PET (IMAGES ONLY, NO REPORT) Routine 04/26/2023 4:50 PM EST documented in this encounter Results * RADIOLOGY EXAM - PET (IMAGES ONLY, NO REPORT) (04/26/2023 4:50 PM EST) Narrative Scheduling, Silent - 05/29/2023 4:50 PM EST This is an imaging study not interpreted or resulted by a [facility] or [facility] contracted radiologist. Konrad Reinoso MD RAD NUCLEAR MED documented in this encounter Advance Directives Latest [...] the patient have Health Care Power of Regional Account Executive? No Care Teams Art Glass Setter Relationship Specialty Start Date End Date Konrad Reinoso MD [address] [place] [address] PCP - General Internal Medicine 08/15/17 documented as of this encounter
[2023-06-07 14:45] LABS: Respiratory Syncytial VirusPCR DETECTED (NotDetected)
--- NOTE | 2023-06-07 15:19 | Electrocardiogram Report ---
Test Reason : Blood Pressure : / mmHG Vent. Rate : 083 BPM Atrial Rate : 083 BPM P-R Int : 130 ms QRS Dur : 148 ms QT Int : 442 ms P-R-T Axes : 000 -77 046 degrees QTc Int : 519 ms Atrial-sensed ventricular-paced rhythm with PVCs Abnormal ECG When compared with ECG of 26-JAN-2023 10:11, Vent. rate has increased BY 3 BPM Confirmed by Jordan Lafleur ([id number]) on 06/07/2023 3:19:19 PM Referred By: REFERRED SELF Confirmed By:Mickey Lafleur
--- NOTE | 2023-06-07 15:46 | History & Physical Report ---
Date of Service June 07, 2023 Assessment & Plan (1) RSV (acute bronchiolitis due to respiratory syncytial virus): (2) COPD (chronic obstructive pulmonary disease): Plan: Patient is 72-year-old male with PMH HTN, HLD, nonischemic cardiomyopathy, s/p AICD, chronic heart failure, CAD, chronic LBBB, on chronic anticoagulation with warfarin, DM II, GERD, gout, ANGELICA, right diabetic foot ulcer, metastatic prostate cancer to bone presented to ER with c/o SOB and cough x 3 days. Denies fever In ER afebrile, 97% on room air, vital stable. Lactate WNL, procalcitonin: 0.3 CXR: Cardiomegaly and AICD with mild pulmonary vascular congestion. Emphysema. Question small pleural effusions. Blood cultures pending Isolation precautions Scheduled DuoNebs Supplemental oxygen as needed Guaifenesin with codeine as needed Continue home Trelegy CBC, BMP in a.m. (3) Prostate cancer metastatic to bone: (4) Neutropenia: (5) Anemia: Plan: S/p radiation, s/p palliative radiation left hip. Currently on chemo, Lupron Last chemo 05/30/2023 WBC: 2.1 (was 9 on 05/29/2023). Hgb: 9.9 (was 11.5 on 05/29/2023), PLT: 202, neut# 0.9 (was 7 on 05/29/2023). ANC: 895 Monitor for fevers. If would develop plan on starting antibiotics for coverage of neutropenic fever Continue daily prednisone CBC in a.m. to further assess Follows with Dr. Collins (6) Elevated troponin: Plan: Initial troponin: 24 trended down to 17.8 in normal range Denies chest pain EKG paced rhythm, PVCs Repeat EKG in a.m. (7) Hyponatremia: Plan: Na: 130 was 138 on 05/29/2023 Serum osmolality, urine osmolality, urine sodium pending Gentle IVF BMP in a.m. (8) Metabolic encephalopathy: Plan: Patient with reported increased confusion over the past [address] head: No acute intracranial abnormality noted Likely metabolic encephalopathy secondary to above (9) Type 2 diabetes mellitus: Plan: A1c: 6.5 on 11/08/2022 NovoLog sliding scale per protocol Hold home metformin A1c in a.m. (10) Nonischemic cardiomyopathy: (11) Chronic heart failure: (12) CAD (coronary artery disease): (13) Cardiac defibrillator in place: Plan: On chronic warfarin Echo 10/24/2021: EF: 60-65%, grade 1 diastolic dysfunction INR: 1.3 (goal 2-2.5 per outpatient anticoagulation note) Continue warfarin INR in a.m. Continue metoprolol succinate Hold Lasix for now and reassess tomorrow (14) Diabetic ulcer of foot associated with diabetes mellitus due to underlying condition, limited to breakdown of skin: Plan: Following with wound clinic Last seen 06/06/2023 and had wound debridement Wound nurse consult (15) Hypertension: Plan: Stable Continue metoprolol succinate, losartan with holding parameters (16) Hyperlipemia: Plan: Continue rosuvastatin (17) Sleep apnea: Plan: BiPAP at bedtime (18) Gout: Plan: Continue allopurinol (19) GERD (gastroesophageal reflux disease): Plan: Continue PPI DVT Prophylaxis warfarin, monitor INR DNR/DNI as per discussion with pt Follows with Dr Reinoso for routine care Pt was seen and care coordinated with Dr Mccallum. See addendum History of Present Illness Chief Complaint: SOB Primary Care Provider: Konrad Reinoso MD Patient is 72-year-old male with PMH HTN, HLD, nonischemic cardiomyopathy, s/p AICD, chronic heart failure, CAD, chronic LBBB, on chronic anticoagulation with warfarin, DM II, GERD, gout, ANGELICA, right diabetic foot ulcer, metastatic prostate cancer to bone presented to ER with c/o SOB and cough x 3 days. History obtained from patient and outpatient chart review. Patient with history of metastatic prostate cancer to bone, S/P radiation, currently on chemo and Lupron. Last chemo 05/30/2023. Receives chemo every 3 weeks. Patient states 3 days after receiving chemo will have malaise and diarrhea. Patient states diarrhea and malaise had resolved. Reports 3 days ago started with sore throat, nonproductive cough, congestion, increased shortness of breath and wheezing. Intermittent dizziness with standing. Patient reports poor appetite and has not been eating for the past 2 days. He states he has been drinking water. At baseline uses albuterol nebulizer 3 times a day. Patient states has been using 4 times a day since onset of cough. He has tried OTC Mucinex night medication with minimal relief. Denies any known ill contacts. Denies fever or chills, myalgias, chest pain. On daily prednisone while receiving chemo. Denies fever/chills, diaphoresis, N/V/D/C, DUGGAN, syncope, vision changes, neck pain, CP, orthopnea, palpitations, hemoptysis, choking, otalgia, rhinorrhea, abdominal pain, paresthesias, extremity weakness, extremity edema, rashes, urinary symptoms. Allergies Allergy/AdvReac Type Severity Reaction Status Date / Time No Known Allergies Allergy Verified 06/07/23 15:22 Home Medications Medication Instructions Recorded Confirmed Type albuterol sulfate 2.5 mg/3 mL 2.5 mg inhalation Q4H PRN Wheezing 02/02/21 06/07/23 History (0.083 %) solution for nebulization fluticasone propionate 50 2 spray intranasal DAILY 02/02/21 06/07/23 History mcg/actuation nasal spray,suspension lanolin alcohols-mineral 1 applic topical DAILY PRN Rash 02/02/21 06/07/23 History oil-w.petrolatum-ceresin topical cream (Eucerin topical cream) montelukast 10 mg tablet 10 mg PO HS 02/02/21 06/07/23 History omeprazole 20 mg capsule,delayed 20 mg PO QAM 02/02/21 06/07/23 History release sennosides 8.6 mg tablet (senna) 8.6 mg PO HS PRN Constipation 02/02/21 06/07/23 History vitamin B complex 1 cap PO QAM 02/02/21 06/07/23 History BiPap Machine 07/01/21 06/07/23 History fluticasone fur. 200 mcg-umeclid 1 inh inhalation QAM 07/01/21 06/07/23 History 62.5 mcg-vilant 25 mcg inhalat.powder (Trelegy Ellipta) albuterol sulfate 90 mcg/actuation 2 puff inhalation Q6H PRN 10/23/21 06/07/23 History aerosol inhaler Shortness Of Breath Or Wheezing gabapentin 100 mg capsule 200 mg PO TID 10/23/21 06/07/23 History metformin 500 mg tablet,extended 500 mg PO BID 10/23/21 06/07/23 History release 24 hr rosuvastatin 20 mg tablet 20 mg PO HS 10/23/21 06/07/23 History warfarin 2 mg tablet 4 mg PO DAILY 10/23/21 06/07/23 History docusate sodium 100 mg capsule 100 mg PO QPM PRN Constipation 12/21/21 06/07/23 History (Colace) guaifenesin 600 mg tablet, 1,200 mg PO QPM PRN Congestion 12/08/22 06/07/23 History extended release 12 hr (Mucinex) leuprolide acetate (6 month) 45 mg 45 mg IM Q24W 12/19/22 06/07/23 History intramuscular syringe kit (Lupron Depot) furosemide 40 mg tablet 40 mg PO UD 01/27/23 06/07/23 History magnesium 250 mg tablet 250 mg PO BID 01/27/23 06/07/23 History allopurinol 100 mg tablet 100 mg PO BID 04/18/23 06/07/23 History losartan 25 mg tablet 12.5 mg PO DAILY 04/18/23 06/07/23 History metoprolol succinate 50 mg 50 mg PO DAILY 04/18/23 06/07/23 History tablet,extended release 24 hr ondansetron HCl 8 mg tablet 8 mg PO Q8H PRN NAUSEA/VOMITING 04/18/23 06/07/23 History prednisone 5 mg tablet 5 mg PO DAILY 04/18/23 06/07/23 History prochlorperazine maleate 10 mg 10 mg PO Q6H PRN NAUSEA/VOMITING 04/18/23 06/07/23 History tablet (Compazine) mupirocin 2 % topical ointment 1 applic topical BID 05/08/23 06/07/23 History oxycodone-acetaminophen 5 mg-325 1 tab PO Q8H PRN mod-severe pain 06/07/23 06/07/23 History mg tablet phenylephrine-guaifenesin 2.5 0 ml PO QAM PRN Congestion 06/07/23 06/07/23 History mg-100 mg/5 mL oral liquid Past Med/Surg History Medical History (Updated 06/07/23 @ 20:18 by Neris Weeks PA-C) GERD (gastroesophageal reflux disease) Chronic heart failure Nonischemic cardiomyopathy Hypertension Prostate cancer has metastisized to back and hip>XRT for 2 weeks, late december 2022 Gout On home oxygen therapy uses with BIPAP at night, 2.5L Sleep apnea bipap with 2.5L O2 at HS Cellulitis of foot hx-has had surgery twice; no current infection Fall 2021, "passed out and ended up in the hospital">no current issues CAD (coronary artery disease) Alcohol abuse no beer for 25 years, "only has 1 shot of whiskey about 3 days per week" Asthma daily and prn inhaler; nebulizer also Swelling, mass, or lump in chest 04/16/10 non diagnostic bronchoscopy Heart failure Peripheral neuropathy Prostate nodule COPD (chronic obstructive pulmonary disease) daily and prn inhalers and nebulizer Gastroesophageal reflux disease without esophagitis Centrilobular emphysema Hilar enlargement History of tobacco use Elevated PSA Pure hypercholesterolemia Type 2 diabetes mellitus Idiopathic cardiomyopathy Kienbock's disease of adults hx Cardiac defibrillator in place new one placed in 2021, [facility]; f/u jose chacon Presence of permanent cardiac pacemaker Surgical History Port-A-Cath in place (02/02/23) Insertion Access Port with Fluoroscopy, right subclavian (Right) - Cecil Osorio, History of surgery scrotal sx for infection-many years ago History of permanent cardiac pacemaker placement 02/02/21, [facility]; f/u jose chacon Hx of prostate biopsy Status post left foot surgery 03/2021 pins removed 11/2021 Hx of colonoscopy Family History Father Cancer Heart disease Social History Smoking Status: Former smoker Tobacco Type: Cigarettes Second Hand Exposure: No; Do You Dip or Chew Tobacco: No; Hx Alcohol Use: Yes Alcohol type: hard liquor Alcohol type Comment: 1-2 shots, 3 times/week Hx Substance Use: No Preferred Language: Uzbek Communication Ability: Effective Visual Impairment: No Limitations Hearing Ability: Hard of Hearing Test Technician Required: No Beliefs That Will Affect Care: None marital status: / Current Living Situation: Alone and Other Current Living Situation Comment: in apartment building current occupational status: retired How many Children do You have: 1 Feels Safe at Home: Yes Diet: regular during the past year weight has: remained stable Physical Activity Frequency Comment: has not been able to walk while recovering from surgery Assistive Devices: BiPap, Denture - Upper, Denture - Lower, Glasses and Oxygen - at Night Review of Systems Review of Systems: All systems reviewed & are unremarkable except as noted in HPI & below Physical Exam Physical Exam: General: chronic ill appearing, no distress, WDWN Head: normocephalic, atraumatic Eyes: PERRL, EOM's intact, conjunctiva non-injected, anicteric ENT: normal inspection external ears, nose, mucous membranes moist Neck: supple, trachea midline Lungs: clear, no respiratory distress, +slight scattered expiratory wheezing, rhonchi/rales noted CV: RRR, no murmur, no pretibial edema Abd: normal BS, soft, non-tender Ext: no cyanosis, no calf tenderness Neuro: A&O x 3, however sometimes slower to answer questions as he states having trouble thinking of words, no focal deficits noted, normal affect Skin: warm, dry Results & Data Results & Data Vital Signs (Past 12 Hours) Vital Signs Temp Pulse Pulse Resp BP BP Pulse Ox 06/07/23 14:00 84 17 93 06/07/23 13:30 96 H 18 128/71 95 06/07/23 12:30 90 18 124/71 94 06/07/23 12:30 97 06/07/23 12:00 92 H 19 125/71 95 06/07/23 12:00 88 17 93 06/07/23 11:50 85 06/07/23 11:30 125/57 L 06/07/23 11:30 85 15 96 06/07/23 11:16 80 20 94 06/07/23 11:16 94 06/07/23 11:02 06/07/23 10:59 36.4 C L 81 20 116/59 L 97 O2 Del Method 06/07/23 14:00 06/07/23 13:30 06/07/23 12:30 Room Air 06/07/23 12:30 Room Air 06/07/23 12:00 06/07/23 12:00 06/07/23 11:50 06/07/23 11:30 06/07/23 11:30 06/07/23 11:16 Room Air 06/07/23 11:16 Room Air 06/07/23 11:02 Room Air 06/07/23 10:59 Room Air Laboratory Results Short CBC 06/07/23 Range/Units 11:36 WBC 2.13 L (4.8-10.8) K/ul Hgb 9.9 L (14.0-18.0) g/dl Hct 30.5 L (42.0-52.0) % Plt Count 202 (130-400) K/uL BMP 06/07/23 11:36 Sodium 130 L Potassium 3.8 Chloride 99 Carbon Dioxide 22 BUN 15 Creatinine 0.88 Glucose 109 H Calcium 8.6 Liver Function 06/07/23 Range/Units 11:36 Total Bilirubin 0.8 (0.2-1.0) mg/dl AST 43 H (13-39) U/L ALT 32 (7-52) U/L Alkaline Phosphatase 61 (34-104) U/L Albumin 3.4 (3.4-5.0) gm/dl Diagnostic Findings Chest X-Ray 06/07/23 11:16 SINGLE VIEW CHEST CLINICAL HISTORY: Sepsis. FINDINGS: An AP, portable, upright chest radiograph is compared to study dated 02/02/2023. The examination is degraded by portable technique and patient rotation. A right subclavian central venous infusion port and a 2-lead cardiac AICD are unchanged in position. The heart is enlarged noting atherosclerotic calcification of the thoracic aorta. There is mild pulmonary vascular congestion. Emphysema and chronic interstitial thickening similar to previous. There is bibasilar scarring/atelectasis. Question small pleural effusions. Foci of parenchymal scarring are seen throughout both lungs. No pneumothorax is seen. The skeletal structures are osteopenic. The bony thorax is grossly intact. Degenerative change is noted in the shoulders and spine. IMPRESSION: 1. Cardiomegaly and AICD with mild pulmonary vascular congestion. 2. Emphysema. 3. Question small pleural effusions. ACT 112: Negative or not required by law. Electronically signed by: Jamaal Dunn M.D. 06/07/2023 11:[address] 06/07/23 15:17 CT OF THE HEAD WITHOUT CONTRAST CLINICAL HISTORY: Altered mental status. COMPARISON STUDY: Head CT October 23, 2021. CT DOSE: 625.8 mGy.cm TECHNIQUE: Helical axial images of the head were obtained without IV contrast. Automated exposure control was utilized for the study. A dose lowering tech nique was utilized adhering to the principles of ALARA. FINDINGS: No acute intracranial hemorrhage, midline shift or mass effect is present. The ventricular system is unremarkable. The basal cisterns are patent. No extra-axial collections are present. There are no findings to suggest acute dural sinus thrombosis or acute territorial infarct. No calvarial fractures are present. Mild to moderate ethmoid and maxillary sinus mucosal thickening is present. Trace fluid within the left mastoid air cells. IMPRESSION: No acute intracranial findings. ACT 112: Negative or not required by law. Electronically signed by: Horacio Hernandez M.D. 06/07/2023 4:15 PM ECG Additional Comments: Paced rhythm, rate 83, PVCs per my interpretation Supervising Physician Co-Signing Physician Notes Attending addendum: The patient was seen and examined in the emergency room He has been complaining of profuse cough, wheezing and shortness of breath for the last few days Has not been able to sleep for the last few nights as well Complaint generalized weakness On examination Sitting at the edge of the bed with ongoing cough and minimal shortness of Hemodynamically stable Chest-widespread wheezing and minimal bibasilar crackles Heart-S1, S2-regular Abdomen-benign Extremities-negative for any edema His admission labs, EKG and imaging studies reviewed Has RSV virus infection with ongoing cough Will continue with current medical management including nebulized bronchodilators and cough suppressant Agree with assessment and plan as outlined above by AIDAN David Dr (5) Anemia Anemia type: unspecified type Qualified Code(s): D64.9 - Anemia, unspecified (14) Diabetic ulcer of foot associated with diabetes mellitus due to underlying condition, limited to breakdown of skin Diabetic foot ulcer location: midfoot Laterality: right Qualified Code(s): E08.621 - Diabetes mellitus due to underlying condition with foot ulcer; L97.411 - Non-pressure chronic ulcer of right heel and midfoot limited to breakdown of skin
--- NOTE | 2023-06-07 16:17 | CT Scan Report ---
CT OF THE HEAD WITHOUT CONTRAST CLINICAL HISTORY: Altered mental status. COMPARISON STUDY: Head CT October 23, 2021. CT DOSE: 625.8 mGy.cm TECHNIQUE: Helical axial images of the head were obtained without IV contrast. Automated exposure con trol was utilized for the study. A dose lowering technique was utilized adhering to the principles o f ALARA. FINDINGS: No acute intracranial hemorrhage, midline shift or mass effect is present. The ventricular system is unremarkable. The basal cisterns are patent. No extra-axial collections are present. There are no findings to suggest acute dural sinus thrombosis or acute territorial infarct. No calvarial fr actures are present. Mild to moderate ethmoid and maxillary sinus mucosal thickening is present. Trac e fluid within the left mastoid air cells. IMPRESSION: No acute intracranial findings. ACT 112: Negative or not required by law. Electronically signed by: Horacio Hernandez M.D. 06/07/2023 4:15 PM
[2023-06-07] MEDS ORDERED: ALBUT/IPRATROP 3MG/0.5MG NEB 3 ML VIAL NEB SCH ×2 (16:39→19:00)
[2023-06-07] MEDS ORDERED: ALBUT/IPRATROP 3MG/0.5MG NEB 3 ML VIAL NEB STA (16:39)
[2023-06-07] MEDS ORDERED: guaiFENesin/CODEINE 100MG/10MG 5ML UDC PO PRN (18:01)
[2023-06-07] MEDS ORDERED: ACETAMINOPHEN 325 MG TAB PO PRN (18:01)
[2023-06-07] MEDS ORDERED: HYDROCODONE/ACETAMOPHEN 5/325MG TAB PO PRN (18:01)
[2023-06-07] MEDS ORDERED: GLUCAGON FOR INJ 1 MG VIAL SQ PRN (18:01)
[2023-06-07] MEDS ORDERED: CARBOHYDRATES FOR HYPOGLYCEMIA PO PRN (18:01)
[2023-06-07] MEDS ORDERED: SODIUM CHLORIDE 0.9% 1,000 ML IV SCH (18:01)
[2023-06-07] MEDS ORDERED: GLUCOSE 40% GEL 15 GM TUBE PO PRN (18:01)
[2023-06-07] MEDS ORDERED: DOCUSATE SODIUM 100 MG CAP PO PRN (18:01)
[2023-06-07] MEDS ORDERED: POLYETHYLENE (MIRALAX) 17 GM PACK PO PRN (18:01)
[2023-06-07] MEDS ORDERED: DEXTROSE 50% 50 ML SYRINGE IV PRN (18:01)
[2023-06-07] MEDS ORDERED: GLUCOSE 10 TAB/TUBE PO PRN (18:01)
[2023-06-07] MEDS ORDERED: oxyCODONE/ACETAMINOPHEN 5mg/325mg TAB PO PRN (18:15)
[2023-06-07] MEDS ORDERED: ALBUT/IPRATROP 3MG/0.5MG NEB 3 ML VIAL NEB ONE (20:15)
[2023-06-07] MEDS: WARFARIN SOD 4 MG TAB PO SCH (20:23)
[2023-06-07] MEDS: allopurinoL 100 MG TAB PO SCH (20:24)
[2023-06-07] MEDS: ROSUVASTATIN CALCIUM 20 MG TAB PO SCH (20:25)
[2023-06-07] MEDS: GABAPENTIN 100 MG CAP PO SCH (20:25)
[2023-06-07] MEDS: INSULIN ASPART PER UNIT CHARGE SC SCH (20:37)
[2023-06-07 23:46] LABS: Appearance Urine Clear (Clear); Bacteria Urine Automated Negative (Negative); Bilirubin Urine Negative (Negative); Blood Urine Negative (Negative); Color Urine Yellow; Glucose Urine UA Negative (Negative); Ketones Urine 1+ (Negative); Leukocyte Esterase Urine Negative (Negative); Nitrite Urine Negative (Negative); Protein Urine Trace (Negative); RBC Urine Automated 0-4 /hpf (0-4); Specific Gravity Urine 1.015 (1.000-1.030); Urobilinogen Urine Negative (Negative)
[2023-06-08 05:40] LABS: Albumin Globulin Ratio 1.1 (0.9-2); Albumin Level 3.1 gm/dl (3.4-5.0); BUN Creatinine Ratio 18.6 (10-20); Bilirubin,Total 0.6 mg/dl (0.2-1.0); Calcium 8.4 mg/dl (8.6-10.3); Creatinine Clr Calc Pharmacy 113.1 ml/min; Est GFR (Non-African American) 94.9 ml/min; Globulin 2.9 gm/dl (2.5-4.0); Magnesium 1.9 mg/dl (1.7-2.4); Potassium 3.8 mmol/L (3.5-5.1)
[2023-06-08 05:51] LABS: INR 1.6 (0.9-1.1); Prothrombin Time 16.8 Seconds (9.0-12.0)
[2023-06-08 06:35] LABS: Hematocrit (blood only) 30.2 % (42.0-52.0); Hemoglobin 9.8 g/dl (14.0-18.0); Mean Corpuscular Hemoglobin 29.2 pg (25.0-34.0); Mean Corpuscular Hgb Conc 32.5 g/dL (32.0-36.0); Mean Corpuscular Volume 89.9 fL (80.0-100.0); Platelet Count 202 K/uL (130-400); RDW Coefficient of Variation 16.6 % (11.5-14.5); RDW Standard Deviation 54.6 fL (36.4-46.3); Red Blood Count 3.36 M/uL (4.70-6.10)
[2023-06-08 06:43] LABS: Basophils # (auto) 0.01 K/uL (0.00-0.20); Basophils % (auto) 0.6 %; Immature Granulocytes # (auto) 0.01 K/uL (0.01-0.20); Immature Granulocytes % (auto) 0.6 %; Lymphocytes # (auto) 0.43 K/uL (1.20-3.40); Lymphocytes % (auto) 25.3 %; Monocytes # (auto) 0.63 K/uL (0.11-0.59); Monocytes % (auto) 37.1 %; Neutrophils # (auto) 0.62 K/uL (1.40-6.50); Neutrophils % (auto) 36.4 %
[2023-06-08 07:34] LABS: Estimated Average Glucose 117 mg/dl; Hemoglobin A1C 5.7 % (4.5-5.6)
[2023-06-08] MEDS ORDERED: FUROSEMIDE 40 MG/4 ML VIAL IV ONE (08:09)
[2023-06-08] MEDS: allopurinoL 100 MG TAB PO SCH ×2 (08:21→21:35)
[2023-06-08] MEDS: FLUTICASONE FUROATE 200MCG 14 PUFFS/INHALER INH SCH (08:22)
[2023-06-08] MEDS: FLUTICASONE PROPIONATE NA SPR 16 GM BTL SCH (08:23)
[2023-06-08] MEDS: GABAPENTIN 100 MG CAP PO SCH ×3 (08:23→21:34)
[2023-06-08] MEDS: METOPROLOL SUCC 50MG EXT REL TAB PO SCH (08:25)
[2023-06-08] MEDS: PANTOprazole 40 MG TAB PO SCH (08:26)
[2023-06-08] MEDS: predniSONE 5 MG TAB PO SCH (08:26)
[2023-06-08] MEDS: UMECLIDINIUM/VILANTEROL 62.5/25MCG 7 PUFFS/INHALER INH SCH (08:27)
[2023-06-08] MEDS ORDERED: NON-FORMULARY MEDICATION (Fluticasone-Umeclidin-Vilanter [Trelegy Ellipta] 200-62.5-25 mcg INH SCH (09:00)
[2023-06-08] MEDS ORDERED: LOSARTAN POTASSIUM 25 MG TAB PO SCH (09:00)
[2023-06-08] MEDS ORDERED: Heparin IV Adult Wt-Based Low-Dose *NO* INITIAL Bolus Protocol IV SCH (09:01)
[2023-06-08] MEDS ORDERED: NITROGLYCERIN SL 0.4 MG/TAB TAB SL PRN (09:03)
[2023-06-08] MEDS: INSULIN ASPART PER UNIT CHARGE SC SCH ×4 (09:51→21:35)
[2023-06-08] MEDS: HEPARIN SODIUM/DEXTROSE 25,000 UNITS/500 ML BAG IV SCH (10:19)
--- NOTE | 2023-06-08 11:13 | Electrocardiogram Report ---
Test Reason : Blood Pressure : / mmHG Vent. Rate : 103 BPM Atrial Rate : 060 BPM P-R Int : 000 ms QRS Dur : 114 ms QT Int : 352 ms P-R-T Axes : 032 001 222 degrees QTc Int : 461 ms Ventricular-paced rhythm with frequent PVCs and fusion beats Biventricular pacemaker detected Abnormal ECG When compared with ECG of 07-JUN-2023 11:46, Vent. rate has increased BY 20 BPM Confirmed by Jordan Lafleur ([id number]) on 06/08/2023 11:13:31 AM Referred By: REFERRED SELF Confirmed By:Mickey Lafleur
[2023-06-08] MEDS ORDERED: XOPENEX/ATROVENT 1.25mg/0.5MG NEB COMBO NEB PRN (12:03)
[2023-06-08] MEDS ORDERED: IPRATROPIUM BROMIDE NEB SOLN 0.02% 2.5 ML VIAL INH SCH (12:15)
[2023-06-08] MEDS ORDERED: LEVALBUTEROL 1.25 MG/3 ML NEB NEB SCH (12:15)
[2023-06-08] MEDS: IPRATROPIUM BROMIDE NEB SOLN 0.02% 2.5 ML VIAL INH PRN (14:19)
[2023-06-08] MEDS: LEVALBUTEROL 1.25 MG/3 ML NEB NEB PRN (14:23)
--- NOTE | 2023-06-08 14:49 | Cardiology Consultation ---
Date of Consultation June 08, 2023 Assessment & Plan (1) RSV (acute bronchiolitis due to respiratory syncytial virus): (2) Elevated troponin: (3) CAD (coronary artery disease): (4) Chronic heart failure: (5) Nonischemic cardiomyopathy: (6) Chest pain at rest: Plan Complex 72-year-old male receiving chemotherapy for metastatic prostate cancer to the bone admitted with acute bronchiolitis secondary to respiratory syncytial virus. Patient anemic, neutropenic. Hyponatremia improved with patient noting clearing of confusion/metabolic encephalopathy. Cardiology consultation requested due to the mildly elevated troponin as well as atypical chest discomfort. EKG without acute change. Patient without overt angina. Troponin elevated expected given acute respiratory illness in the setting of known chronic coronary artery disease. Examination reveals an acceptably co mpensated patient. Telemetry with known frequent ventricular ectopy. RSV treatment as per Hospitalist Continue conservative cardiac management Await resting echocardiography Hold losartan if hypotensive Do not hold metoprolol succinate (looking to increase as tolerated to improve ventricular ectopy/NSVT and percentage of BiV pacing) Likely resume oral furosemide at 40 mg twice per day in the morning Continue rosuvastatin Supervising Physician Co-Signing Physician Notes 72-year-old male receiving chemotherapy for metastatic prostate cancer to the bone. Admitted with acute bronchiolitis secondary to respiratory syncytial virus. Patient notes chest discomfort with cough. Mildly elevated troponin. Echocardiogram demonstrates mildly reduced LV systolic and with with mild aortic stenosis. Patient currently resting comfortably. Denies dyspnea at rest. No lightheadedness or dizziness. PE: VSS. Gen: NAD, AAO x3. Heart: Regular rhythm with ectopy, normal S1-S2. 2/6 systolic ejection murmur. Pulmonary: Bilateral expiratory wheeze with scattered rhonchi. No rales. Extremities: Mild pedal edema. A/P: Agree with above PA-C history, physical exam, assessment and plan. Continue metoprolol succinate 50 mg daily. Resume furosemide in AM. Losartan currently on hold. Consider restarting in a.m. pending review of blood pressure. Subtherapeutic INR noted on admission. Continue warfarin with IV heparin bridging. Repeat PT/INR in AM. History of Present Illness Reason for Consultation: Chest pain, elevated troponin Requesting Physician: Dr. Shelby Attending Physician: Dr. Shelby History of Present Illness Mr. Juan Carlos Hernandez is a very pleasant 72-year-old male with prostate cancer metastatic to bone who is undergoing chemotherapy. He also has a right lower extremity diabetic foot ulcer that is being followed by the [facility] wound clinic. Patient notes that 3 days after his last round of chemo he developed fatigue, malaise, and diarrhea. Approximately 4 days ago he began to experience sore throat cough, chest congestion, and worsening shortness of breath. He notes decreased appetite as well as intermittent dizziness with positional changes. Patient notes living alone, presenting to the ER on June 07, 2023 primarily due to intermittent confusion and concern for ability to take care of himself at home. Patient afebrile on presentation. Oxygen saturation 97% on room air. Testing positive for respiratory single virus. EKG on presentation revealed an atrial sensed ventricular paced rhythm with occasional premature ventricular complexes. EKG obtained on June 08, 2023 revealed a ventricular paced rhythm with frequent PVCs and fusion beats. High- sensitivity troponin obtained x 4, initially 24.1 then 17.8 then 55.1 then 59.2 pg/mL. Patient notes chest discomfort associated with coughing as well as chest discomfort that was elicited on palpation of the chest by the hospitalist. At the time of my evaluation the patient notes considerable improvement in confusion as well as some improvement in the respiratory symptoms. Head CT negative for acute intracranial findings. Chest x-ray was interpreted by the radiologist as revealing cardiomegaly with mild pulmonary vascular congestion, emphysema, possible small pleural effusions. Problem List: 1. Mixed etiology cardiomyopathy with prior single-vessel right coronary occlusion, prior remote cardiac catheterization, diffuse LV dysfunction. 2. Moderate left ventricular dysfunction, resolved. 3. Chronic left bundle branch block. 4. NYHA Class III congestive heart failure. 5. Status post biventricular pacer defibrillator, December 2012, January 2021 [employer], Model Claria [id number] 6. Paroxysmal atrial fibrillation 7. Hypertension 8. Hyperlipidemia. 9. Type 2 diabetes mellitus. 10. Diabetic foot ulcer 11. Emphysema 12. Obstructive sleep apnea on BiPAP 13. Metastatic prostate cancer status post radiation, currently on chemotherapy, Lupron 14. Gout 15. GERD Allergies Allergy/AdvReac Type Severity Reaction Status Date / Time No Known Allergies Allergy Verified 06/07/23 15:22 Home Medications Medication Instructions Recorded Confirmed Type albuterol sulfate 2.5 mg/3 mL 2.5 mg inhalation Q4H PRN Wheezing 02/02/21 06/07/23 History (0.083 %) solution for nebulization fluticasone propionate 50 2 spray intranasal DAILY 02/02/21 06/07/23 History mcg/actuation nasal spray,suspension lanolin alcohols-mineral 1 applic topical DAILY PRN Rash 02/02/21 06/07/23 History oil-w.petrolatum-ceresin topical cream (Eucerin topical cream) montelukast 10 mg tablet 10 mg PO HS 02/02/21 06/07/23 History omeprazole 20 mg capsule,delayed 20 mg PO QAM 02/02/21 06/07/23 History release sennosides 8.6 mg tablet (senna) 8.6 mg PO HS PRN Constipation 02/02/21 06/07/23 History vitamin B complex 1 cap PO QAM 02/02/21 06/07/23 History BiPap Machine 07/01/21 06/07/23 History fluticasone fur. 200 mcg-umeclid 1 inh inhalation QAM 07/01/21 06/07/23 History 62.5 mcg-vilant 25 mcg inhalat.powder (Trelegy Ellipta) albuterol sulfate 90 mcg/actuation 2 puff inhalation Q6H PRN 10/23/21 06/07/23 History aerosol inhaler Shortness Of Breath Or Wheezing gabapentin 100 mg capsule 200 mg PO TID 10/23/21 06/07/23 History metformin 500 mg tablet,extended 500 mg PO BID 10/23/21 06/07/23 History release 24 hr rosuvastatin 20 mg tablet 20 mg PO HS 10/23/21 06/07/23 History warfarin 2 mg tablet 4 mg PO DAILY 10/23/21 06/07/23 History docusate sodium 100 mg capsule 100 mg PO QPM PRN Constipation 12/21/21 06/07/23 History (Colace) guaifenesin 600 mg tablet, 1,200 mg PO QPM PRN Congestion 12/08/22 06/07/23 History extended release 12 hr (Mucinex) leuprolide acetate (6 month) 45 mg 45 mg IM Q24W 12/19/22 06/07/23 History intramuscular syringe kit (Lupron Depot) furosemide 40 mg tablet 40 mg PO UD 01/27/23 06/07/23 History magnesium 250 mg tablet 250 mg PO BID 01/27/23 06/07/23 History allopurinol 100 mg tablet 100 mg PO BID 04/18/23 06/07/23 History losartan 25 mg tablet 12.5 mg PO DAILY 04/18/23 06/07/23 History metoprolol succinate 50 mg 50 mg PO DAILY 04/18/23 06/07/23 History tablet,extended release 24 hr ondansetron HCl 8 mg tablet 8 mg PO Q8H PRN NAUSEA/VOMITING 04/18/23 06/07/23 History prednisone 5 mg tablet 5 mg PO DAILY 04/18/23 06/07/23 History prochlorperazine maleate 10 mg 10 mg PO Q6H PRN NAUSEA/VOMITING 04/18/23 06/07/23 History tablet (Compazine) mupirocin 2 % topical ointment 1 applic topical BID 05/08/23 06/07/23 History oxycodone-acetaminophen 5 mg-325 1 tab PO Q8H PRN mod-severe pain 06/07/23 06/07/23 History mg tablet phenylephrine-guaifenesin 2.5 0 ml PO QAM PRN Congestion 06/07/23 06/07/23 History mg-100 mg/5 mL oral liquid Patient History Medical History GERD (gastroesophageal reflux disease) Chronic heart failure Nonischemic cardiomyopathy Hypertension Prostate cancer has metastisized to back and hip>XRT for 2 weeks, late december 2022 Gout On home oxygen therapy uses with BIPAP at night, 2.5L Sleep apnea bipap with 2.5L O2 at HS Cellulitis of foot hx-has had surgery twice; no current infection Fall 2021, "passed out and ended up in the hospital">no current issues CAD (coronary artery disease) Alcohol abuse no beer for 25 years, "only has 1 shot of whiskey about 3 days per week" Asthma daily and prn inhaler; nebulizer also Swelling, mass, or lump in chest 04/16/10 non diagnostic bronchoscopy Heart failure Peripheral neuropathy Prostate nodule COPD (chronic obstructive pulmonary disease) daily and prn inhalers and nebulizer Gastroesophageal reflux disease without esophagitis Centrilobular emphysema Hilar enlargement History of tobacco use Elevated PSA Pure hypercholesterolemia Type 2 diabetes mellitus Idiopathic cardiomyopathy Kienbock's disease of adults hx Cardiac defibrillator in place new one placed in 2021, [facility]; f/u dr. bunn surendra Presence of permanent cardiac pacemaker Surgical History Port-A-Cath in place (02/02/23) Insertion Access Port with Fluoroscopy, right subclavian (Right) - Cecil Osorio, History of surgery scrotal sx for infection-many years ago History of permanent cardiac pacemaker placement 02/02/21, [facility]; f/u jose chacon Hx of prostate biopsy Status post left foot surgery 03/2021 pins removed 11/2021 Hx of colonoscopy Family History Father Cancer Heart disease Social History Smoking Status: Former smoker Tobacco Type: Cigarettes Second Hand Exposure: Yes; Do You Dip or Chew Tobacco: Yes; Hx Alcohol Use: Yes Alcohol type: beer and hard liquor Alcohol type Comment: 1- 2 shots, 3 times/week Hx Substance Use: No Preferred Language: Guinean Communication Ability: Effective Visual Impairment: No Limitations Hearing Ability: Hard of Hearing Rotary Dump Operator Required: No Beliefs That Will Affect Care: None marital status: / Current Living Situation: Alone Current Living Situation Comment: in apartment building current occupational status: retired How many Children do You have: 1 Feels Safe at Home: No Is there a partner from a previous relationship who is making you feel unsafe now?: No Diet: regular during the past year weight has: remained stable Physical Activity Frequency Comment: has not been able to walk while recovering from surgery Assistive Devices: BiPap, Denture - Upper, Denture - Lower, Glasses and Walker Review of Systems Review of Systems: Complete Review of Systems is as stated above, negative, or noncontributory Physical Exam Physical Exam: General: Alert and no distress Skin: No rash. Eyes: PER. Conjunctiva pink, sclera pale. HENT: Normocephalic. Atraumatic. Neck: No carotid bruits. No JVD. No HJR. Heart: Irregular in the 70's. No murmur. Lungs: Diminished. Decreased. Scattered rhonchi. Right upper anterior expiratory wheeze. Abdomen: +BS. Soft. Nontender. No masses. No organomegaly. Extremities: Right foot boot. Mild edema on the left. No clubbing. No cyanosis. Limited neurological examination: No focal deficit. Results & Data Vital Signs (Past 12 Hours) Vital Signs Pulse Resp BP Pulse Ox Pulse Ox O2 Del Method O2 Flow Rate 06/08/23 14:18 89 L 06/08/23 12:00 93 H 20 109/55 L 95 Nasal Cannula 3 06/08/23 11:00 102 H 20 125/66 93 Nasal Cannula 3 06/08/23 10:00 98 H 28 H 103/62 94 Nasal Cannula 3 06/08/23 09:00 107 H 28 H 128/56 L 91 Nasal Cannula 3 06/08/23 08:43 104 H 22 96 4 06/08/23 08:00 106 H 18 127/98 93 Nasal Cannula 3 06/08/23 07:01 59 L 22 136/71 93 Nasal Cannula 3 06/08/23 06:54 107 H 06/08/23 03:00 114 H 33 H 92 06/08/23 03:00 143/80 H O2 Flow Rate 06/08/23 14:18 3 06/08/23 12:00 06/08/23 11:00 06/08/23 10:00 06/08/23 09:00 06/08/23 08:43 06/08/23 08:00 06/08/23 07:01 06/08/23 06:54 06/08/23 03:00 06/08/23 03:00 Laboratory Results Cardiac Enzymes 06/08/23 06/08/23 06/08/23 Range/Units 04:24 08:11 09:51 AST 53 H (13-39) U/L Troponin I High Sens 55.1 H* D 59.2 H* (0-20) pg/ml Coagulation 06/08/23 Range/Units 04:24 PT 16.8 H (9.0-12.0) Seconds CBC 06/08/23 Range/Units 04:24 WBC 1.70 L (4.8-10.8) K/ul RBC 3.36 L (4.70-6.10) M/uL Hgb 9.8 L (14.0-18.0) g/dl Hct 30.2 L (42.0-52.0) % Plt Count 202 (130-400) K/uL Neut # (Auto) 0.62 L* (1.40-6.50) K/uL Lymph # (Auto) 0.43 L (1.20-3.40) K/uL [place] # (Auto) 0.63 H (0.11-0.59) K/uL Eos # (Auto) 0.00 (0.00-0.50) K/uL Baso # (Auto) 0.01 (0.00-0.20) K/uL Comprehensive Metabolic Panel 06/08/23 Range/Units 04:24 Sodium 133 L (136-145) mmol/L Potassium 3.8 (3.5-5.1) mmol/L Chloride 101 (98-107) mmol/L Carbon Dioxide 23 (21-32) mmol/L BUN 13 (6-23) mg/dl Creatinine 0.70 (0.6-1.4) mg/dl Glucose 81 (70-99(Fasting)) mg/dl Calcium 8.4 L (8.6-10.3) mg/dl AST 53 H (13-39) U/L ALT 40 (7-52) U/L Alkaline Phosphatase 59 (34-104) U/L Total Protein 6.0 (6.0-8.3) gm/dl Albumin 3.1 L (3.4-5.0) gm/dl Intake and Output 06/08/23 06/08/23 06/08/23 06:59 14:59 22:59 Intake Total 1300 / 1300 Output Total 200 / 200 Balance 1100 / 1100 Intake: IV 1000 / 1000 Sodium Chloride 0.9% 1,000 ml @ 1000 / 1000 80 mls/hr IV .[id number] [facility] Rx#: [id number] Oral 300 / 300 Output: Urine 200 / 200 Other: Weight 97 kg Patient Weight 06/09/23 06:59 Weight 97 kg
--- NOTE | 2023-06-08 15:51 | Hospitalist Progress Note ---
Date of Service June 08, 2023 Assessment & Plan (1) Metabolic encephalopathy: Plan 72-year-old male with PMH of HTN, HLD, nonischemic cardiomyopathy, s/p AICD, chronic heart failure, CAD, chronic LBBB, on chronic anticoagulation with warfarin, DM II, GERD, gout, ANGELICA, right diabetic foot ulcer, metastatic prostate cancer to bone presented to ER 06/07 with c/o SOB and cough x 3 days [employer]UT[employer]. Denies fever. He is being managed for the following: RSV (acute bronchiolitis due to respiratory syncytial virus): COPD (chronic obstructive pulmonary disease): In ER afebrile, 97% on room air, vital stable. Lactate WNL, procalcitonin: 0.3 CXR: Cardiomegaly and AICD with mild pulmonary vascular congestion. Emphysema. Question small pleural effusions. Isolation precaution, follow admitting blood culture. Scheduled and as needed nebs. Continue home Trelegy. Patient needing 3 L oxygen today, wean down oxygen as tolerated. Symptomatic management Acute on chronic heart failure with preserved ejection fraction Patient presented with shortness of breath and viral URTI Admitting CXR with pulmonary vascular congestion Patient with increased bilateral crackles on exam 06/08 and increased subjective shortness of breath. Given IV Lasix, echo has been sent, await. Cardiology on board, will resume oral furosemide from tomorrow. Continue other cardiac medications. Losartan on hold in favor of diuresis. Elevated troponin: Patient with chest pain/? Reproducible with cough, EKG with ventricular paced rhythm. Troponin trended up today likely secondary to acute on chronic heart failure. Cardiology on board, appreciate recommendation. Continue telemetry monitoring. Metabolic encephalopathy: Patient with reported increased confusion over the past 3 days likely secondary to above. Admitting CT head with no acute finding. Resolved. Prostate cancer metastatic to bone: Neutropenia: Anemia: S/p radiation, s/p palliative radiation left hip. Currently on chemo, Lupron Last chemo 05/30/2023 WBC: 2.1 (was 9 on 05/29/2023). Hgb: 9.9 (was 11.5 on 05/29/2023), PLT: 202, neut# 0.9 (was 7 on 05/29/2023). ANC: 895 Monitor for fevers. If would develop plan on starting antibiotics for coverage of neutropenic fever Continue daily prednisone CBC in a.m. to further assess Follows with Dr. Collins Hyponatremia: Admitting sodium of 130, improving. Likely secondary to poor p.o. intake prior to arrival. Will follow. Other chronic medical conditions: Continue with/resume home meds as and when able. T2DM: A1c of 5.7 this admission. Continue with sliding scale insulin. Nonischemic cardiomyopathy, CAD, cardiac defibrillator in place: Continue with home warfarin. 10/24/2021 echo with EF of 60 to 65%, grade 1 diastolic dysfunction. Admitting INR 1.3, today 1.6, heparin bridge until therapeutic INR [goal 2-2.5 per outpatient anticoagulation note]. Continue with metoprolol succinate. Diabetic ulcer of foot associated with diabetes mellitus: Follows wound clinic. Last seen 06/06/2023 and had wound debridement. Wound care consult. HTN: Stable, continue home metoprolol, losartan with holding parameters. Hyperlipidemia: Continue home rosuvastatin Sleep apnea: Continue with BiPAP at bedtime Gout: Continue allopurinol GERD: Continue PPI DVT prophylaxis: Warfarin, heparin bridge DNR/DNI Follows Dr. Reinoso Admission and Anticipated Discharge Date Admission Date: June 07, 2023 Subjective Patient was seen and examined at bedside. Patient was lying in bed, on 3 L oxygen via nasal cannula, does not appear in acute distress. Patient reports subjective shortness of breath, was saturating at 95%, reports chest pain with cough ongoing for about 5 days, reproducible in nature at bedside exam. Patient denies any chest pain at rest, troponin was elevated, EKG repeated with no acute ST or T changes. Echo was sent, await. Patient with poor appetite, patient has been declining BiPAP, reports medication compliance. Patient reports occasional clear mucus with the cough. Physical Exam Physical Exam: GENERAL: Alert and oriented x3. NAD, on 3L O2 via NC HEENT: No pallor, no icterus. Pupils equal, round and reactive to light. Oral mucosa moist. NECK: No JVD, no neck masses. chest tender to palpate HEART: S1 and S2 heard. Regular rate and rhythm. No murmur, no gallop. RESPIRATORY SYSTEM: Normal AP diameter. No accessory muscle use. No wheezing, b/l crackles. ABDOMEN: Soft, bowel sounds present, nontender, no distention. CENTRAL NERVOUS SYSTEM: No facial droop. Speech is clear. Obeys simple commands. Moves extremities. EXTREMITIES: trace ble edema, no erythema seen. Results & Data Results & Data Vital Signs (Past 12 Hours) Vital Signs Pulse Resp BP Pulse Ox Pulse Ox O2 Del Method O2 Flow Rate 06/08/23 14:18 89 L 06/08/23 12:00 93 H 20 109/55 L 95 Nasal Cannula 3 06/08/23 11:00 102 H 20 125/66 93 Nasal Cannula 3 06/08/23 10:00 98 H 28 H 103/62 94 Nasal Cannula 3 06/08/23 09:00 107 H 28 H 128/56 L 91 Nasal Cannula 3 06/08/23 08:43 104 H 22 96 4 06/08/23 08:00 106 H 18 127/98 93 Nasal Cannula 3 06/08/23 07:01 59 L 22 136/71 93 Nasal Cannula 3 06/08/23 06:54 107 H O2 Flow Rate 06/08/23 14:18 3 06/08/23 12:00 06/08/23 11:00 06/08/23 10:00 06/08/23 09:00 06/08/23 08:43 06/08/23 08:00 06/08/23 07:01 06/08/23 06:54
[2023-06-08] MEDS ORDERED: PNEUMOCOCCAL VACCINE (PCV20) 20-VAL CONJ-DIP CRM/PF 0.5 ML SYR IM ONE (16:04)
[2023-06-08] MEDS: WARFARIN SOD 4 MG TAB PO SCH (17:55)
[2023-06-08] MEDS: ROSUVASTATIN CALCIUM 20 MG TAB PO SCH (21:34)
[2023-06-08 23:32] LABS: ANTI-Xa, UFH(UnfractionatedHep 0.25 IU/ml (0.3-0.7)
[2023-06-09 07:08] LABS: Calcium 8.7 mg/dl (8.6-10.3); Creatinine Clr Calc Pharmacy 105.7 ml/min; Est GFR (Non-African American) 92.3 ml/min; Magnesium 2.1 mg/dl (1.7-2.4); Phosphorus 2.5 mg/dl (2.5-4.9); Potassium 3.3 mmol/L (3.5-5.1)
[2023-06-09 07:13] LABS: Hematocrit (blood only) 30.2 % (42.0-52.0); Mean Corpuscular Hemoglobin 28.9 pg (25.0-34.0); Mean Corpuscular Hgb Conc 33.1 g/dL (32.0-36.0); Mean Corpuscular Volume 87.3 fL (80.0-100.0); Mean Platelet Volume 11.3 fL (9.4-12.4); Platelet Count 234 K/uL (130-400); RDW Coefficient of Variation 16.5 % (11.5-14.5); RDW Standard Deviation 52.3 fL (36.4-46.3); Red Blood Count 3.46 M/uL (4.70-6.10); White Blood Count 4.36 K/ul (4.8-10.8)
[2023-06-09 07:15] LABS: ANTI-Xa, UFH(UnfractionatedHep 0.34 IU/ml (0.3-0.7)
[2023-06-09 07:18] LABS: INR 3.4 (0.9-1.1); Prothrombin Time 34.6 Seconds (9.0-12.0)
[2023-06-09] MEDS: HEPARIN SODIUM/DEXTROSE 25,000 UNITS/500 ML BAG IV SCH (07:39)
[2023-06-09] MEDS ORDERED: POTASSIUM CHLORIDE CRTAB 20 MEQ TABCR PO STA (08:26)
[2023-06-09] MEDS: INSULIN ASPART PER UNIT CHARGE SC SCH ×4 (09:47→20:45)
[2023-06-09] MEDS: GABAPENTIN 100 MG CAP PO SCH ×3 (09:52→20:44)
[2023-06-09] MEDS: allopurinoL 100 MG TAB PO SCH ×2 (09:52→20:44)
[2023-06-09] MEDS: PANTOprazole 40 MG TAB PO SCH (09:53)
[2023-06-09] MEDS: METOPROLOL SUCC 50MG EXT REL TAB PO SCH (09:53)
[2023-06-09] MEDS: predniSONE 5 MG TAB PO SCH (09:53)
--- NOTE | 2023-06-09 10:58 | XRay Report ---
XR chest 1V portable HISTORY: 72 years-old Male increasing O2 req acute hypoxia COMPARISON: 06/07/2023 chest radiograph, PET CT 04/26/2023 TECHNIQUE: AP view of the chest FINDINGS: Cardiac silhouette is enlarged. Right subclavian Uqbuaz-[id number] catheter. Left subclavian pacer/AICD. Emphysema with chronic interstitial coarsening. Chronic blunting of the costophrenic angles. Pulmonar y vascular congestion is noted with interstitial coarsening and mild ill-defined right midlung opacit ies. No pneumothorax or large pleural effusion. IMPRESSION: 1. Cardiomegaly with pulmonary vascular congestion. 2. Emphysema with chronic interstitial coarsening. 3. Mild ill-defined right midlung opacity may be secondary to summation density versus a developing s uperimposed pneumonia. ACT 112: Negative or not required by law. The above report was generated using voice recognition software. It may contain grammatical, syntax o r spelling errors. Electronically signed by: Jorge Chavez M.D. 06/09/2023 10:57 AM
[2023-06-09] MEDS: FLUTICASONE FUROATE 200MCG 14 PUFFS/INHALER INH SCH (11:06)
[2023-06-09] MEDS: UMECLIDINIUM/VILANTEROL 62.5/25MCG 7 PUFFS/INHALER INH SCH (11:06)
[2023-06-09] MEDS: FLUTICASONE PROPIONATE NA SPR 16 GM BTL SCH (11:07)
[2023-06-09] MEDS: FUROSEMIDE 40 MG TAB PO SCH (11:53)
--- NOTE | 2023-06-09 13:20 | Cardiology Progress Note ---
Date of Service June 09, 2023 Assessment & Plan (1) RSV (acute bronchiolitis due to respiratory syncytial virus): (2) Elevated troponin: (3) CAD (coronary artery disease): (4) Chronic heart failure: (5) Nonischemic cardiomyopathy: (6) Chest pain at rest: Plan Complex 72-year-old male receiving chemotherapy for metastatic prostate cancer to the bone admitted with acute bronchiolitis secondary to respiratory syncytial virus. Patient anemic, neutropenic. Hyponatremia noted, improved, with patient noting resolution of confusion. Cardiology consultation requested due to the mildly elevated troponin as well as atypical chest discomfort. EKG without acute change. Patient without overt angina. Troponin elevation expected given acute respiratory illness in the setting of known chronic coronary artery disease. Volume status is compensated. Telemetry with known frequent ventricular ectopy, short runs of ventricular tachycardia up to 5 beats in duration RSV treatment as per Hospitalist Increase metoprolol succinate dosing to 50 mg AM and 25 mg PM, with plans to increase to 50 mg BID as respiratory status improves, to aid ventricular ectopy/NSVT and improve percentage of BiV pacing Maintain normokalemia and normomagnesemia. Continue conservative cardiac management Admission and Anticipated Discharge Date Admission Date: June 07, 2023 Supervising Physician Co-Signing Physician Notes 72-year-old male receiving chemotherapy for metastatic prostate cancer to the bone. Admitted with acute bronchiolitis secondary to respiratory syncytial virus. Cough respiratory status improved today. Atypical chest discomfort associated with cough mildly improved. No orthopnea, PND, or edema. Denies palpitations. Telemetry reveals a ventricular paced rhythm with frequent PVCs. PE: VSS. Gen: NAD, AAO x3. Heart: Regular rhythm with ectopy, normal S1-S2. 2/6 systolic ejection murmur. Pulmonary: Bilateral expiratory wheeze with scattered rhonchi. No rales. Extremities: Mild pedal edema. A/P: Agree with above PA-C history, physical exam, assessment and plan. Titrate metoprolol to succinate to 75 mg daily. Oral furosemide resumed today. Maintain even I's/O's. Supplement electrolytes as indicated. Losartan remains on hold due to borderline hypotension. Consider restarting during hospitaliza tion and/or at discharge pending ongoing assessment. Supratherapeutic INR (3.4) noted today. Discontinue IV heparin. Hold today's dose of warfarin. Repeat PT/INR in AM. Subjective Patient seen and examined. Chart, medications, telemetry reviewed. AM labs with hypokalemia which was replaced orally. Patient notes feeling significantly better today though with ongoing cough and chest congestion as well as wheeze. Chest pain occurs only when coughing. Telemetry: Paced with heart rates predominantly in the 80s with frequent ventricular ectopy including short runs of ventricular tachycardia up to 5 beats in duration. Resting echocardiography limited by frequent ectopy and borderline tachycardia. LV systolic function mildly reduced, EF 45 to 50%. Aortic valve was described as moderately calcified with mild aortic valve stenosis. Trace mitral and mild tricuspid regurgitation observed. Estimated PASP 40 mmHg. Grade 1 diastolic dysfunction. Review of Systems Review of Systems: Complete Review of Systems is as stated above, negative, or noncontributory Physical Exam Physical Exam: General: Alert and oriented x 3. No acute distress. Skin: No rash. Eyes: PER. Conjunctiva pink, sclera pale. HENT: Normocephalic. Atraumatic. Neck: No carotid bruits. No JVD. No HJR. Heart: Irregular at 80 bpm. No murmur. Lungs: Diminished. Decreased. Right sided rhonchi improved post cough. + Expiratory wheeze. Abdomen: +BS. Soft. Nontender. No masses. No organomegaly. Extremities: Right foot boot. Mild edema on the left. No clubbing. No cyanosis. Limited neurological examination: No focal deficit. Results & Data Vital Signs (Past 12 Hours) Vital Signs Temp Pulse Pulse Resp BP Pulse Ox O2 Del Method 06/09/23 11:38 37.0 C 48 L 15 122/74 96 Nasal Cannula 06/09/23 08:01 36.8 C 81 14 118/72 96 Nasal Cannula 06/09/23 07:00 89 06/09/23 07:00 Nasal Cannula 06/09/23 02:47 36.8 C 84 18 109/57 L 97 Nasal Cannula O2 Flow Rate 06/09/23 11:38 5 06/09/23 08:01 5 06/09/23 07:00 06/09/23 07:00 3 06/09/23 02:47 4 Laboratory Results Coagulation 06/09/23 Range/Units 06:36 PT 34.6 H (9.0-12.0) Seconds CBC 06/09/23 Range/Units 06:36 WBC 4.36 L (4.8-10.8) K/ul RBC 3.46 L (4.70-6.10) M/uL Hgb 10.0 L (14.0-18.0) g/dl Hct 30.2 L (42.0-52.0) % Plt Count 234 (130-400) K/uL Comprehensive Metabolic Panel 06/09/23 Range/Units 06:36 Sodium 135 L (136-145) mmol/L Potassium 3.3 L (3.5-5.1) mmol/L Chloride 100 (98-107) mmol/L Carbon Dioxide 28 (21-32) mmol/L BUN 15 (6-23) mg/dl Creatinine 0.75 (0.6-1.4) mg/dl Glucose 99 (70-99(Fasting)) mg/dl Calcium 8.7 (8.6-10.3) mg/dl Intake and Output 06/08/23 06/09/23 06/09/23 22:59 06:59 14:59 Intake Total 297.233 / 1818.066 220.833 / 1818.066 242.0 / 242.0 Balance 297.233 / 1618.066 220.833 / 1618.066 242.0 / 242.0 Intake: IV 177.233 / 1278.066 100.833 / 1278.066 242.0 / 242.0 Heparin Sodium/Dextrose 25,000 177.233 / 278.066 100.833 / 278.066 242.0 / 2 42.0 units In 500 ml @ 1,200 UNITS/ HR 24 mls/hr IV .[id number] [facility] Rx #:[id number] Oral 120 / 540 120 / 540 Other: Weight 96.7 kg 97.3 kg Weight Measurement Method Built in [facility]
[2023-06-09] MEDS: cefTRIAXone SODIUM 2,000 MG in DEXTROSE 5 % MINI-B 50 ML IV SCH (15:42)
--- NOTE | 2023-06-09 16:37 | Hospitalist Progress Note ---
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 He is being managed for the following: RSV (acute bronchiolitis due to respiratory syncytial virus): COPD (chronic obstructive pulmonary disease): Possible pneumonia In ER afebrile, 97% on room air, vital stable. Lactate WNL, procalcitonin: 0.3 CXR: Cardiomegaly and AICD with mild pulmonary vascular congestion. Emphysema. Question small pleural effusions. Isolation precaution, follow admitting blood culture. Scheduled and as needed nebs. Continue home Trelegy. Patient needing 5 L oxygen today, wean down oxygen as tolerated. Symptomatic management for rsv Repeat cxr 06/09 due to increased oxygen requirement was suggestive of developing pneumonia Patient started on Rocephin and doxycycline 06/09. Continue. Acute on chronic heart failure with preserved ejection fraction Patient presented with shortness of breath and viral URTI Admitting CXR with pulmonary vascular congestion Patient with increased bilateral crackles on exam 06/08 and increased subjective shortness of breath. Echo reviewed, grade 1 diastolic dysfunction, ejection fraction 45 to 50%. Cardiology on board, appreciate recommendation. titrating metoprolol Continue other cardiac medications. Losartan on hold in favor of diuresis. Elevated troponin: Patient with chest pain/? Reproducible with cough, EKG with ventricular paced rhythm. Troponin trended up 06/08 likely secondary to acute on chronic heart failure. Cardiology on board, appreciate recommendation. Continue telemetry monitoring. Metabolic encephalopathy: Patient with reported increased confusion over the past 3 days likely secondary to above. Admitting CT head with no acute finding. Resolved. Hyponatremia: Admitting sodium of 130, improving. Likely secondary to poor p.o. intake prior to arrival. Will follow. Other chronic medical conditions: Continue with/resume home meds as and when able. T2DM: A1c of 5.7 this admission. Continue with sliding scale insulin. Nonischemic cardiomyopathy, CAD, cardiac defibrillator in place: Continue with home warfarin. 10/24/2021 echo with EF of 60 to 65%, grade 1 diastolic dysfunction. Admitting INR 1.3, was placed on heparin bridge, INR 3.4 today, heparin drip discontinued, hold today's warfarin, follow PT/INR tomorrow.[goal 2-2.5 per outpatient anticoagulation note]. Continue with metoprolol succinate. Diabetic ulcer of foot associated with diabetes mellitus: Follows wound clinic. Last seen 06/06/2023 and had wound debridement. Wound care consult. HTN: Stable, continue home metoprolol, losartan with holding parameters. Hyperlipidemia: Continue home rosuvastatin Sleep apnea: Continue with BiPAP at bedtime Gout: Continue allopurinol GERD: Continue PPI Prostate cancer metastatic to bone: Neutropenia: Anemia: S/p radiation, s/p palliative radiation left hip. Currently on chemo, Lupron Last chemo 05/30/2023 WBC: 2.1 (was 9 on 05/29/2023). Hgb: 9.9 (was 11.5 on 05/29/2023), PLT: 202, neut# 0.9 (was 7 on 05/29/2023). ANC: 895 Monitor for fevers. If would develop plan on starting antibiotics for coverage of neutropenic fever Continue daily prednisone CBC in a.m. to further assess Follows with Dr. Collins DVT prophylaxis: Warfarin on hold due to supratherapeutic INR DNR/DNI Follows Dr. Reinoso Admission and Anticipated Discharge Date Admission Date: June 07, 2023 Subjective Patient was seen and examined at bedside. Patient was lying in bed, on 5 L oxygen via nasal cannula, does not appear in acute distress. Patient reports improving subjective shortness of breath, reports improving chest pain. Patient with increased oxygen requirement, CXR with concern for developing pneumonia, patient started on antibiotic. Patient denies other complaints. Reports eating better and moving bowels okay. Physical Exam Physical Exam: GENERAL: Alert and oriented x3. NAD, on 5L O2 via NC HEENT: No pallor, no icterus. Pupils equal, round and reactive to light. Oral mucosa moist. NECK: No JVD, no neck masses. chest tender to palpate HEART: S1 and S2 heard. Regular rate and rhythm. No murmur, no gallop. RESPIRATORY SYSTEM: Normal AP diameter. No accessory muscle use. No wheezing, occ rhonci, b/l crackles. ABDOMEN: Soft, bowel sounds present, nontender, no distention. CENTRAL NERVOUS SYSTEM: No facial droop. Speech is clear. Obeys simple commands. Moves extremities. EXTREMITIES: trace ble edema, no erythema seen. Results & Data Results & Data Vital Signs (Past 12 Hours) Vital Signs Temp Pulse Pulse Resp BP Pulse Ox O2 Del Method 06/09/23 15:52 36.8 C 85 16 102/63 96 Nasal Cannula 06/09/23 15:21 91 H 06/09/23 11:38 37.0 C 48 L 15 122/74 96 Nasal Cannula 06/09/23 08:01 36.8 C 81 14 118/72 96 Nasal Cannula 06/09/23 07:00 89 06/09/23 07:00 Nasal Cannula O2 Flow Rate 06/09/23 15:52 5 06/09/23 15:21 06/09/23 11:38 5 06/09/23 08:01 5 06/09/23 07:00 06/09/23 07:00 3
[2023-06-09] MEDS: ONDANSETRON INJ 2 MG/ML 2 ML VIAL IV PRN (18:09)
[2023-06-09] MEDS: IPRATROPIUM BROMIDE NEB SOLN 0.02% 2.5 ML VIAL INH PRN (20:04)
[2023-06-09] MEDS: LEVALBUTEROL 1.25 MG/3 ML NEB NEB PRN (20:04)
[2023-06-09] MEDS: DOXYCYCLINE HYCLATE 100 MG CAP PO SCH (20:39)
[2023-06-09] MEDS: METOPROLOL SUCC 25MG EXT REL TAB PO SCH (20:44)
[2023-06-09] MEDS: ROSUVASTATIN CALCIUM 20 MG TAB PO SCH (20:44)
[2023-06-10] MEDS: UMECLIDINIUM/VILANTEROL 62.5/25MCG 7 PUFFS/INHALER INH SCH (07:43)
[2023-06-10] MEDS: GABAPENTIN 100 MG CAP PO SCH ×3 (07:43→21:00)
[2023-06-10] MEDS: FLUTICASONE FUROATE 200MCG 14 PUFFS/INHALER INH SCH (07:43)
[2023-06-10] MEDS: DOXYCYCLINE HYCLATE 100 MG CAP PO SCH ×2 (07:44→20:59)
[2023-06-10] MEDS: predniSONE 5 MG TAB PO SCH (07:44)
[2023-06-10] MEDS: allopurinoL 100 MG TAB PO SCH ×2 (07:45→20:59)
[2023-06-10] MEDS: FUROSEMIDE 40 MG TAB PO SCH (07:45)
[2023-06-10] MEDS: PANTOprazole 40 MG TAB PO SCH (07:45)
[2023-06-10] MEDS: METOPROLOL SUCC 50MG EXT REL TAB PO SCH (07:45)
[2023-06-10] MEDS: FLUTICASONE PROPIONATE NA SPR 16 GM BTL SCH (07:46)
[2023-06-10 09:11] LABS: Hemoglobin 9.8 g/dl (14.0-18.0); Mean Corpuscular Hemoglobin 28.7 pg (25.0-34.0); Mean Corpuscular Hgb Conc 32.7 g/dL (32.0-36.0); Mean Corpuscular Volume 87.7 fL (80.0-100.0); Mean Platelet Volume 11.3 fL (9.4-12.4); Platelet Count 249 K/uL (130-400); RDW Coefficient of Variation 16.9 % (11.5-14.5); RDW Standard Deviation 54.3 fL (36.4-46.3); Red Blood Count 3.42 M/uL (4.70-6.10); White Blood Count 5.65 K/ul (4.8-10.8)
[2023-06-10 09:26] LABS: BUN Creatinine Ratio 21.3 (10-20); Calcium 8.2 mg/dl (8.6-10.3); Est GFR (African American) 99.7 ml/min; Magnesium 1.9 mg/dl (1.7-2.4); Potassium 3.5 mmol/L (3.5-5.1)
[2023-06-10] MEDS: INSULIN ASPART PER UNIT CHARGE SC SCH ×4 (09:26→21:00)
[2023-06-10 09:47] LABS: INR 2.8 (0.9-1.1); Prothrombin Time 28.3 Seconds (9.0-12.0)
[2023-06-10] MEDS: LEVALBUTEROL 1.25 MG/3 ML NEB NEB PRN (12:24)
[2023-06-10] MEDS: IPRATROPIUM BROMIDE NEB SOLN 0.02% 2.5 ML VIAL INH PRN (12:24)
[2023-06-10] MEDS: cefTRIAXone SODIUM 2,000 MG in DEXTROSE 5 % MINI-B 50 ML IV SCH (13:59)
--- NOTE | 2023-06-10 16:31 | Hospitalist Progress Note ---
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 He is being managed for the following: RSV (acute bronchiolitis due to respiratory syncytial virus): COPD (chronic obstructive pulmonary disease): Possible pneumonia In ER afebrile, 97% on room air, vital stable. Lactate WNL, procalcitonin: 0.3 CXR: Cardiomegaly and AICD with mild pulmonary vascular congestion. Emphysema. Question small pleural effusions. Isolation precaution, follow admitting blood culture. Scheduled and as needed nebs. Continue home Trelegy. Patient needing 2 L oxygen today, wean down oxygen as tolerated. Symptomatic management for rsv Repeat cxr 06/09 due to increased oxygen requirement was suggestive of developing pneumonia Patient started on Rocephin and doxycycline 06/09. Continue. Decreasing oxygen requirement, improving crackles and rhonchi. Acute on chronic heart failure with preserved ejection fraction Patient presented with shortness of breath and viral URTI Admitting CXR with pulmonary vascular congestion Patient with increased bilateral crackles on exam 06/08 and increased subjective shortness of breath. Echo reviewed, grade 1 diastolic dysfunction, ejection fraction 45 to 50%. Cardiology on board, appreciate recommendation. titrating metoprolol Continue other cardiac medications. Losartan on hold in favor of diuresis. Elevated troponin: Patient with chest pain/? Reproducible with cough, EKG with ventricular paced rhythm. Troponin trended up 06/08 likely secondary to acute on chronic heart failure. Cardiology on board, appreciate recommendation. Continue telemetry monitoring. Metabolic encephalopathy: Patient with reported increased confusion over the past 3 days likely secondary to above. Admitting CT head with no acute finding. Resolved. Hyponatremia: Admitting sodium of 130, improving. Likely secondary to poor p.o. intake prior to arrival. Will follow. Other chronic medical conditions: Continue with/resume home meds as and when able. T2DM: A1c of 5.7 this admission. Continue with sliding scale insulin. Nonischemic cardiomyopathy, CAD, cardiac defibrillator in place: Continue with home warfarin. 10/24/2021 echo with EF of 60 to 65%, grade 1 diastolic dysfunction. Admitting INR 1.3, was placed on heparin bridge, INR therapeutic today, resume warfarin,follow PT/INR tomorrow.[goal 2-2.5 per outpatient anticoagulation note]. Continue with metoprolol succinate. Diabetic ulcer of foot associated with diabetes mellitus: Follows wound clinic. Last seen 06/06/2023 and had wound debridement. Wound care consult. HTN: Stable, continue home metoprolol, losartan with holding parameters. Hyperlipidemia: Continue home rosuvastatin Sleep apnea: Continue with BiPAP at bedtime Gout: Continue allopurinol GERD: Continue PPI Prostate cancer metastatic to bone: Neutropenia: Anemia: S/p radiation, s/p palliative radiation left hip. Currently on chemo, Lupron Last chemo 05/30/2023 WBC: 2.1 (was 9 on 05/29/2023). Hgb: 9.9 (was 11.5 on 05/29/2023), PLT: 202, neut# 0.9 (was 7 on 05/29/2023). ANC: 895 Monitor for fevers. If would develop plan on starting antibiotics for coverage of neutropenic fever Continue daily prednisone CBC in a.m. to further assess Follows with Dr. Collins DVT prophylaxis: Warfarin DNR/DNI Follows Dr. Reinoso Admission and Anticipated Discharge Date Admission Date: June 07, 2023 Subjective Patient was seen and examined at bedside. Patient was lying in bed, on 2 L oxygen via nasal cannula, does not appear in acute distress. Was in phone w/ casual conversation. Wanted me to exam while on phone and indicated no issues. Per RN, eating ok, no diarrhea, no issues overnight. Physical Exam Physical Exam: GENERAL: Alert and oriented x3. NAD, on 2L O2 via NC HEENT: No pallor, no icterus. Pupils equal, round and reactive to light. Oral mucosa moist. NECK: No JVD, no neck masses. chest tender to palpate HEART: S1 and S2 heard. Regular rate and rhythm. No murmur, no gallop. RESPIRATORY SYSTEM: Normal AP diameter. No accessory muscle use. No wheezing, occ rhonci improving, b/l crackles improving. ABDOMEN: Soft, bowel sounds present, nontender, no distention. CENTRAL NERVOUS SYSTEM: No facial droop. Speech is clear. Obeys simple commands. Moves extremities. EXTREMITIES: trace ble edema, no erythema seen. Results & Data Results & Data Vital Signs (Past 12 Hours) Vital Signs Temp Pulse Pulse Resp BP Pulse Ox O2 Del Method 06/10/23 16:14 36.7 C 94 H 18 117/63 94 Nasal Cannula 06/10/23 15:41 88 06/10/23 12:24 17 Nasal Cannula 06/10/23 11:46 37.0 C 90 18 111/62 93 Nasal Cannula 06/10/23 08:01 37.4 C 76 19 108/54 L 94 Nasal Cannula 06/10/23 08:01 Nasal Cannula 06/10/23 07:47 108 H O2 Flow Rate 06/10/23 16:14 2 06/10/23 15:41 06/10/23 12:24 3 06/10/23 11:46 2 06/10/23 08:01 2 06/10/23 08:01 3 06/10/23 07:47
[2023-06-10] MEDS: METOPROLOL SUCC 25MG EXT REL TAB PO SCH (20:59)
[2023-06-10] MEDS: ROSUVASTATIN CALCIUM 20 MG TAB PO SCH (21:00)
[2023-06-11 07:18] LABS: Hematocrit (blood only) 32.4 % (42.0-52.0); Hemoglobin 10.2 g/dl (14.0-18.0); Mean Corpuscular Hemoglobin 28.8 pg (25.0-34.0); Mean Corpuscular Hgb Conc 31.5 g/dL (32.0-36.0); Mean Corpuscular Volume 91.5 fL (80.0-100.0); Mean Platelet Volume 10.8 fL (9.4-12.4); Platelet Count 256 K/uL (130-400); RDW Coefficient of Variation 16.9 % (11.5-14.5); RDW Standard Deviation 57.3 fL (36.4-46.3); Red Blood Count 3.54 M/uL (4.70-6.10); White Blood Count 8.04 K/ul (4.8-10.8)
[2023-06-11 07:43] LABS: INR 3.9 (0.9-1.1); Prothrombin Time 39.1 Seconds (9.0-12.0)
[2023-06-11 07:44] LABS: BUN Creatinine Ratio 22.1 (10-20); Calcium 8.4 mg/dl (8.6-10.3); Creatinine Clr Calc Pharmacy 102.6 ml/min; Est GFR (African American) 105.8 ml/min; Est GFR (Non-African American) 91.3 ml/min; Potassium 3.5 mmol/L (3.5-5.1)
[2023-06-11] MEDS: GABAPENTIN 100 MG CAP PO SCH ×3 (08:15→21:10)
[2023-06-11] MEDS: FUROSEMIDE 40 MG TAB PO SCH (08:16)
[2023-06-11] MEDS: METOPROLOL SUCC 50MG EXT REL TAB PO SCH (08:16)
[2023-06-11] MEDS: predniSONE 5 MG TAB PO SCH (08:16)
[2023-06-11] MEDS: allopurinoL 100 MG TAB PO SCH ×2 (08:16→21:09)
[2023-06-11] MEDS: PANTOprazole 40 MG TAB PO SCH (08:17)
[2023-06-11] MEDS: FLUTICASONE FUROATE 200MCG 14 PUFFS/INHALER INH SCH (08:17)
[2023-06-11] MEDS: DOXYCYCLINE HYCLATE 100 MG CAP PO SCH ×2 (08:17→21:10)
[2023-06-11] MEDS: UMECLIDINIUM/VILANTEROL 62.5/25MCG 7 PUFFS/INHALER INH SCH (08:18)
[2023-06-11] MEDS: FLUTICASONE PROPIONATE NA SPR 16 GM BTL SCH (08:18)
[2023-06-11] MEDS: INSULIN ASPART PER UNIT CHARGE SC SCH ×4 (09:08→21:10)
[2023-06-11] MEDS: cefTRIAXone SODIUM 2,000 MG in DEXTROSE 5 % MINI-B 50 ML IV SCH (14:38)
--- NOTE | 2023-06-11 15:36 | Hospitalist Progress Note ---
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 He is being managed for the following: RSV (acute bronchiolitis due to respiratory syncytial virus): COPD (chronic obstructive pulmonary disease): Possible pneumonia In ER afebrile, 97% on room air, vital stable. Lactate WNL, procalcitonin: 0.3 CXR: Cardiomegaly and AICD with mild pulmonary vascular congestion. Emphysema. Question small pleural effusions. Isolation precaution, follow admitting blood culture. Scheduled and as needed nebs. Continue home Trelegy. Patient needing 2 L oxygen today, wean down oxygen as tolerated. Symptomatic management for rsv Repeat cxr 06/09 due to increased oxygen requirement was suggestive of developing pneumonia Patient started on Rocephin and doxycycline 06/09. Continue. Decreasing oxygen requirement, improving crackles and rhonchi. Decreasing sputum now per patient. Acute on chronic heart failure with preserved ejection fraction Patient presented with shortness of breath and viral URTI Admitting CXR with pulmonary vascular congestion Patient with increased bilateral crackles on exam 06/08 and increased subjective shortness of breath. Echo reviewed, grade 1 diastolic dysfunction, ejection fraction 45 to 50%. Cardiology on board, appreciate recommendation. titrating metoprolol Continue other cardiac medications. Losartan on hold in favor of diuresis. Continue with home Lasix. Elevated troponin: Patient with chest pain/? Reproducible with cough, EKG with ventricular paced rhythm. Troponin trended up 06/08 likely secondary to acute on chronic heart failure. Cardiology on board, appreciate recommendation. Continue telemetry monitoring. Metabolic encephalopathy: Patient with reported increased confusion over the past 3 days likely secondary to above. Admitting CT head with no acute finding. Resolved. Hyponatremia: Admitting sodium of 130, improving. Likely secondary to poor p.o. intake prior to arrival. Will follow. Other chronic medical conditions: Continue with/resume home meds as and when able. T2DM: A1c of 5.7 this admission. Continue with sliding scale insulin. Nonischemic cardiomyopathy, CAD, cardiac defibrillator in place: Continue with home warfarin. 10/24/2021 echo with EF of 60 to 65%, grade 1 diastolic dysfunction. Admitting INR 1.3, was placed on heparin bridge, INR therapeutic today, resume warfarin,follow PT/INR tomorrow.[goal 2-2.5 per outpatient anticoagulation note]. Continue with metoprolol succinate. Diabetic ulcer of foot associated with diabetes mellitus: Follows wound clinic. Last seen 06/06/2023 and had wound debridement. Wound care consult. HTN: Stable, continue home metoprolol, losartan with holding parameters. Hyperlipidemia: Continue home rosuvastatin Sleep apnea: Continue with BiPAP at bedtime Gout: Continue allopurinol GERD: Continue PPI Prostate cancer metastatic to bone: Neutropenia: Anemia: S/p radiation, s/p palliative radiation left hip. Currently on chemo, Lupron Last chemo 05/30/2023 WBC: 2.1 (was 9 on 05/29/2023). Hgb: 9.9 (was 11.5 on 05/29/2023), PLT: 202, neut# 0.9 (was 7 on 05/29/2023). ANC: 895 Monitor for fevers. If would develop plan on starting antibiotics for coverage of neutropenic fever Continue daily prednisone CBC in a.m. to further assess Follows with Dr. Collins DVT prophylaxis: Warfarin DNR/DNI Follows Dr. Reinoso Dispo: PT/OT, CM to assist with DC planning, patient would likely need rehab. Admission and Anticipated Discharge Date Admission Date: June 07, 2023 Subjective Patient was seen and examined at bedside. Patient was lying in bed, on 2 L oxygen via nasal cannula, does not appear in acute distress. Patient reports overall improving cough and feeling better. Reports improving shortness of breath. Reports decreasing sputum. Patient reports eating okay and moving bowels okay. Denies other complaints. Physical Exam Physical Exam: GENERAL: Alert and oriented x3. NAD, on 2L O2 via NC HEENT: No pallor, no icterus. Pupils equal, round and reactive to light. Oral mucosa moist. NECK: No JVD, no neck masses. chest tender to palpate HEART: S1 and S2 heard. Regular rate and rhythm. No murmur, no gallop. RESPIRATORY SYSTEM: Normal AP diameter. No accessory muscle use. No wheezing, occ rhonci improving, b/l crackles improving. ABDOMEN: Soft, bowel sounds present, nontender, no distention. CENTRAL NERVOUS SYSTEM: No facial droop. Speech is clear. Obeys simple commands. Moves extremities. EXTREMITIES: trace ble edema, no erythema seen. Results & Data Results & Data Vital Signs (Past 12 Hours) Vital Signs Temp Pulse Pulse Resp BP Pulse Ox O2 Del Method 06/11/23 13:59 86 06/11/23 11:51 37.4 C 79 18 113/66 96 Nasal Cannula 06/11/23 09:00 Nasal Cannula 06/11/23 07:55 36.6 C 90 18 106/63 96 Nasal Cannula O2 Flow Rate 06/11/23 13:59 06/11/23 11:51 2 06/11/23 09:00 3 06/11/23 07:55 2
[2023-06-11] MEDS: LEVALBUTEROL 1.25 MG/3 ML NEB NEB PRN (17:47)
[2023-06-11] MEDS: ROSUVASTATIN CALCIUM 20 MG TAB PO SCH (21:09)
[2023-06-11] MEDS: METOPROLOL SUCC 25MG EXT REL TAB PO SCH (21:10)
[2023-06-12 08:10] LABS: Anion Gap 5 (3-11); BUN Creatinine Ratio 16.3 (10-20); Blood Urea Nitrogen 13 mg/dl (6-23); Calcium 8.6 mg/dl (8.6-10.3); Carbon Dioxide 34 mmol/L (21-32); Chloride 99 mmol/L (98-107); Creatinine Clr Calc Pharmacy 98.8 ml/min; Est GFR (African American) 104.2 ml/min; Est GFR (Non-African American) 89.9 ml/min; Glucose 104 mg/dl (70-99(Fasting)); Prothrombin Time 30.8 Seconds (9.0-12.0); Sodium 138 mmol/L (136-145)
[2023-06-12] MEDS: GABAPENTIN 100 MG CAP PO SCH ×3 (08:56→21:01)
[2023-06-12] MEDS: predniSONE 5 MG TAB PO SCH (08:57)
[2023-06-12] MEDS: METOPROLOL SUCC 50MG EXT REL TAB PO SCH (08:57)
[2023-06-12] MEDS: FUROSEMIDE 40 MG TAB PO SCH (08:57)
[2023-06-12] MEDS: allopurinoL 100 MG TAB PO SCH ×2 (08:58→21:02)
[2023-06-12] MEDS: FLUTICASONE PROPIONATE NA SPR 16 GM BTL SCH (08:58)
[2023-06-12] MEDS: PANTOprazole 40 MG TAB PO SCH (08:58)
[2023-06-12] MEDS: DOXYCYCLINE HYCLATE 100 MG CAP PO SCH ×2 (08:58→21:01)
[2023-06-12] MEDS: FLUTICASONE FUROATE 200MCG 14 PUFFS/INHALER INH SCH (08:59)
[2023-06-12] MEDS: UMECLIDINIUM/VILANTEROL 62.5/25MCG 7 PUFFS/INHALER INH SCH (08:59)
[2023-06-12] MEDS: INSULIN ASPART PER UNIT CHARGE SC SCH ×4 (09:02→21:02)
[2023-06-12] MEDS: LEVALBUTEROL 1.25 MG/3 ML NEB NEB PRN (10:56)
[2023-06-12] MEDS: IPRATROPIUM BROMIDE NEB SOLN 0.02% 2.5 ML VIAL INH PRN (10:56)
[2023-06-12] MEDS ORDERED: POTASSIUM CHLORIDE CRTAB 20 MEQ TABCR PO STA (11:16)
--- NOTE | 2023-06-12 14:09 | Hospitalist Progress Note ---
Date of Service June 12, 2023 Assessment & Plan (1) Metabolic encephalopathy: Plan 72-year-old male with PMH of HTN, HLD, nonischemic cardiomyopathy, s/p AICD, chronic heart failure, CAD, chronic LBBB, on chronic anticoagulation with warfarin, DM II, GERD, gout, ANGELICA, right diabetic foot ulcer, metastatic prostate cancer to bone presented to ER 06/07 with c/o SOB and cough x 3 days [employer]. Denies fever. He is being managed for the following: RSV (acute bronchiolitis due to respiratory syncytial virus): COPD (chronic obstructive pulmonary disease): Possible pneumonia In ER afebrile, 97% on room air, vital stable. Lactate WNL, procalcitonin: 0.3 CXR: Cardiomegaly and AICD with mild pulmonary vascular congestion. Emphysema. Question small pleural effusions. Isolation precaution, follow admitting blood culture. Scheduled and as needed nebs. Continue home Trelegy. Patient needing 3 L oxygen today, wean down oxygen as tolerated. Symptomatic management for rsv Repeat cxr 06/09 due to increased oxygen requirement was suggestive of de veloping pneumonia Patient started on Rocephin and doxycycline 06/09. Continue. Decreasing oxygen requirement, improving crackles and rhonchi. Decreasing sputum now per patient. Acute on chronic heart failure with preserved ejection fraction Patient presented with shortness of breath and viral URTI Admitting CXR with pulmonary vascular congestion Patient with increased bilateral crackles on exam 06/08 and increased subjective shortness of breath. Echo reviewed, grade 1 diastolic dysfunction, ejection fraction 45 to 50%. Cardiology on board, appreciate recommendation. titrating metoprolol Continue other cardiac medications. Losartan on hold in favor of diuresis. Continue with home Lasix. Elevated troponin: Patient with chest pain/? Reproducible with cough, EKG with ventricular paced rhythm. Troponin trended up 06/08 likely secondary to acute on chronic heart failure. Cardiology on board, appreciate recommendation. Continue telemetry monitoring. Metabolic encephalopathy: Patient with reported increased confusion over the past 3 days [employer] likely secondary to above. Admitting CT head with no acute finding. Resolved. Hyponatremia: Admitting sodium of 130, improving. Likely secondary to poor p.o. intake prior to arrival. resolved. Other chronic medical conditions: Continue with/resume home meds as and when able. T2DM: A1c of 5.7 this admission. Continue with sliding scale insulin. Nonischemic cardiomyopathy, CAD, cardiac defibrillator in place: Continue with home warfarin. 10/24/2021 echo with EF of 60 to 65%, grade 1 diastolic dysfunction. Admitting INR 1.3, was placed on heparin bridge, INR 3.0 today, will hold warfarin,follow PT/INR tomorrow.[goal 2-2.5 per outpatient anticoagulation note]. Continue with metoprolol succinate. Diabetic ulcer of foot associated with diabetes mellitus: Follows wound clinic. Last seen 06/06/2023 and had wound debridement. Wound care consult. HTN: Stable, continue home metoprolol, losartan with holding parameters. Hyperlipidemia: Continue home rosuvastatin Sleep apnea: Continue with BiPAP at bedtime Gout: Continue allopurinol GERD: Continue PPI Prostate cancer metastatic to bone: Neutropenia: Anemia: S/p radiation, s/p palliative radiation left hip. Currently on chemo, Lupron Last chemo 05/30/2023 WBC: 2.1 (was 9 on 05/29/2023). Hgb: 9.9 (was 11.5 on 05/29/2023), PLT: 202, neut# 0.9 (was 7 on 05/29/2023). ANC: 895 Monitor for fevers. If would develop plan on starting antibiotics for coverage of neutropenic fever Continue daily prednisone CBC in a.m. to further assess Follows with Dr. Collins DVT prophylaxis: Warfarin DNR/DNI Follows Dr. Reinoso Dispo: PT/OT, CM to assist with DC planning, patient would likely need rehab. Admission and Anticipated Discharge Date Admission Date: June 07, 2023 Subjective Patient was seen and examined at bedside. Patient was lying in bed, on 2 L oxygen via nasal cannula, does not appear in acute distress. Patient reports cough about the same, but overall improved, reports decreasing sputum production. States lack of support at home. Reports weakness slowly getting better. Physical Exam Physical Exam: GENERAL: Alert and oriented x3. NAD, on 3L O2 via NC HEENT: No pallor, no icterus. Pupils equal, round and reactive to light. Oral mucosa moist. NECK: No JVD, no neck masses. chest tender to palpate HEART: S1 and S2 heard. Regular rate and rhythm. No murmur, no gallop. RESPIRATORY SYSTEM: Normal AP diameter. No accessory muscle use. No wheezing, no rhonchi, b/l crackles improving. ABDOMEN: Soft, bowel sounds present, nontender, no distention. CENTRAL NERVOUS SYSTEM: No facial droop. Speech is clear. Obeys simple commands. Moves extremities. EXTREMITIES: trace ble edema, no erythema seen. Results & Data Results & Data Vital Signs (Past 12 Hours) Vital Signs Temp Pulse Pulse Resp BP BP Pulse Ox 06/12/23 12:36 36.6 C 67 18 106/61 91 06/12/23 10:59 88 16 94 06/12/23 09:30 06/12/23 08:36 36.8 C 64 18 101/50 L 91 06/12/23 07:00 77 06/12/23 05:54 36.8 C 60 20 94/50 L 92 O2 Del Method O2 Flow Rate 06/12/23 12:36 Nasal Cannula 3 06/12/23 10:59 Nasal Cannula 2 06/12/23 09:30 Nasal Cannula 3 06/12/23 08:36 Nasal Cannula 3 06/12/23 07:00 06/12/23 05:54 Nasal Cannula 3
[2023-06-12] MEDS: cefTRIAXone SODIUM 2,000 MG in DEXTROSE 5 % MINI-B 50 ML IV SCH (14:51)
[2023-06-12] MEDS: METOPROLOL SUCC 25MG EXT REL TAB PO SCH (21:01)
[2023-06-12] MEDS: ROSUVASTATIN CALCIUM 20 MG TAB PO SCH (21:01)
[2023-06-13 06:41] LABS: Hematocrit (blood only) 31.4 % (42.0-52.0); Hemoglobin 10.3 g/dl (14.0-18.0); Mean Corpuscular Hemoglobin 28.8 pg (25.0-34.0); Mean Corpuscular Hgb Conc 32.8 g/dL (32.0-36.0); Mean Corpuscular Volume 87.7 fL (80.0-100.0); Mean Platelet Volume 11.1 fL (9.4-12.4); Nucleated RBC # (auto) 0.02 K/uL (0.00-0.12); Nucleated RBC % (auto) 0.2 %; Platelet Count 273 K/uL (130-400); RDW Coefficient of Variation 16.7 % (11.5-14.5); RDW Standard Deviation 53.7 fL (36.4-46.3); Red Blood Count 3.58 M/uL (4.70-6.10); White Blood Count 9.57 K/ul (4.8-10.8)
[2023-06-13 06:45] LABS: BUN Creatinine Ratio 15.7 (10-20); Calcium 8.7 mg/dl (8.6-10.3); Creatinine Clr Calc Pharmacy 88.2 ml/min; Est GFR (African American) 99.7 ml/min; Potassium 3.3 mmol/L (3.5-5.1)
[2023-06-13 06:54] LABS: INR 2.3 (0.9-1.1); Prothrombin Time 23.5 Seconds (9.0-12.0)
[2023-06-13] MEDS: INSULIN ASPART PER UNIT CHARGE SC SCH ×4 (08:42→20:41)
[2023-06-13] MEDS: PANTOprazole 40 MG TAB PO SCH (08:43)
[2023-06-13] MEDS: predniSONE 5 MG TAB PO SCH (08:43)
[2023-06-13] MEDS: DOXYCYCLINE HYCLATE 100 MG CAP PO SCH ×2 (08:43→20:40)
[2023-06-13] MEDS: METOPROLOL SUCC 50MG EXT REL TAB PO SCH (08:43)
[2023-06-13] MEDS: allopurinoL 100 MG TAB PO SCH ×2 (08:43→20:41)
[2023-06-13] MEDS: FUROSEMIDE 40 MG TAB PO SCH (08:43)
[2023-06-13] MEDS: UMECLIDINIUM/VILANTEROL 62.5/25MCG 7 PUFFS/INHALER INH SCH (08:44)
[2023-06-13] MEDS: GABAPENTIN 100 MG CAP PO SCH ×3 (08:44→20:41)
[2023-06-13] MEDS: FLUTICASONE PROPIONATE NA SPR 16 GM BTL SCH (08:44)
[2023-06-13] MEDS: FLUTICASONE FUROATE 200MCG 14 PUFFS/INHALER INH SCH (08:44)
[2023-06-13] MEDS: POTASSIUM CHLORIDE CRTAB 20 MEQ TABCR PO SCH ×2 (08:47→10:53)
[2023-06-13] MEDS: LEVALBUTEROL 1.25 MG/3 ML NEB NEB PRN (11:33)
[2023-06-13] MEDS: IPRATROPIUM BROMIDE NEB SOLN 0.02% 2.5 ML VIAL INH PRN (11:33)
[2023-06-13] MEDS: ONDANSETRON INJ 2 MG/ML 2 ML VIAL IV PRN (12:21)
--- NOTE | 2023-06-13 14:13 | Hospitalist Progress Note ---
Date of Service June 13, 2023 Assessment & Plan (1) Metabolic encephalopathy: Plan 72-year-old male with PMH of HTN, HLD, nonischemic cardiomyopathy, s/p AICD, chronic heart failure, CAD, chronic LBBB, on chronic anticoagulation with warfarin, DM II, GERD, gout, ANGELICA, right diabetic foot ulcer, metastatic prostate cancer to bone presented to ER 06/07 with c/o SOB and cough x 3 days [employer]. Denies fever. He is being managed for the following: RSV (acute bronchiolitis due to respiratory syncytial virus): COPD (chronic obstructive pulmonary disease): Possible pneumonia In ER afebrile, 97% on room air, vital stable. Lactate WNL, procalcitonin: 0.3 CXR: Cardiomegaly and AICD with mild pulmonary vascular congestion. Emphysema. Question small pleural effusions. Isolation precaution, follow admitting blood culture. Scheduled and as needed nebs. Continue home Trelegy. Patient needing 3 L oxygen today, wean down oxygen as tolerated. Symptomatic management for rsv Repeat cxr 06/09 due to increased oxygen requirement was suggestive of de veloping pneumonia Patient started on Rocephin and doxycycline 06/09. Continue. Decreasing oxygen requirement, improving crackles and rhonchi. Decreasing sputum now per patient. Acute on chronic heart failure with preserved ejection fraction Patient presented with shortness of breath and viral URTI Admitting CXR with pulmonary vascular congestion Patient with increased bilateral crackles on exam 06/08 and increased subjective shortness of breath. Echo reviewed, grade 1 diastolic dysfunction, ejection fraction 45 to 50%. Cardiology on board, appreciate recommendation. titrated metoprolol Continue other cardiac medications. Losartan on hold in favor of diuresis. Continue with home Lasix. Elevated troponin: Patient with chest pain/? Reproducible with cough, EKG with ventricular paced rhythm. Troponin trended up 06/08 likely secondary to acute on chronic heart failure. Cardiology on board, appreciate recommendation. Continue telemetry monitoring. Metabolic encephalopathy: Patient with reported increased confusion over the past 3 days [employer] likely secondary to above. Admitting CT head with no acute f inding. Resolved. Hyponatremia: Admitting sodium of 130, improving. Likely secondary to poor p.o. intake prior to arrival. resolved. Other chronic medical conditions: Continue with/resume home meds as and when able. T2DM: A1c of 5.7 this admission. Continue with sliding scale insulin. Nonischemic cardiomyopathy, CAD, cardiac defibrillator in place: Continue with home warfarin. 10/24/2021 echo with EF of 60 to 65%, grade 1 diastolic dysfunction. Admitting INR 1.3, was placed on heparin bridge, INR 3.0 today, will hold warfarin,follow PT/INR tomorrow.[goal 2-2.5 per outpatient anticoagulation note]. Continue with metoprolol succinate. Diabetic ulcer of foot associated with diabetes mellitus: Follows wound clinic. Last seen 06/06/2023 and had wound debridement. Wound care consult. HTN: Stable, continue home metoprolol, losartan with holding parameters. Hyperlipidemia: Continue home rosuvastatin Sleep apnea: Continue with BiPAP at bedtime Gout: Continue allopurinol GERD: Continue PPI Prostate cancer metastatic to bone: Neutropenia: Anemia: S/p radiation, s/p palliative radiation left hip. Currently on chemo, Lupron Last chemo 05/30/2023 WBC: 2.1 (was 9 on 05/29/2023). Hgb: 9.9 (was 11.5 on 05/29/2023), PLT: 202, neut# 0.9 (was 7 on 05/29/2023). ANC: 895 Monitor for fevers. If would develop plan on starting antibiotics for coverage of neutropenic fever Continue daily prednisone CBC in a.m. to further assess Follows with Dr. Collins DVT prophylaxis: Warfarin DNR/DNI Follows Dr. Reinoso Dispo: PT/OT, CM to assist with DC planning. PT recs is home. Pt reports not feeling well, wouldn't like dc today. Admission and Anticipated Discharge Date Admission Date: June 07, 2023 Subjective Patient was seen and examined at bedside. Patient was lying in bed, on 2 L oxygen via nasal cannula, does not appear in acute distress. Patient reports cough about the same, but overall improved, reports decreasing sputum production. States lack of support at home. Reports weakness has gotten better but reporting having nausea and can't go home today. Per rn, pt ambulating fine , 2 step done, no O2 requirement. Physical Exam Physical Exam: GENERAL: Alert and oriented x3. NAD, on 2L O2 via NC HEENT: No pallor, no icterus. Pupils equal, round and reactive to light. Oral mucosa moist. NECK: No JVD, no neck masses. chest tender to palpate HEART: S1 and S2 heard. Regular rate and rhythm. No murmur, no gallop. RESPIRATORY SYSTEM: Normal AP diameter. No accessory muscle use. No wheezing, no rhonchi, b/l crackles improving. ABDOMEN: Soft, bowel sounds present, nontender, no distention. CENTRAL NERVOUS SYSTEM: No facial droop. Speech is clear. Obeys simple commands. Moves extremities. EXTREMITIES: trace ble edema, no erythema seen. Results & Data Results & Data Vital Signs (Past 12 Hours) Vital Signs Temp Pulse Pulse Pulse Pulse Resp Resp 06/13/23 12:11 93 H 91 H 84 20 06/13/23 12:05 94 H 20 06/13/23 11:49 36.3 C L 75 18 06/13/23 09:30 06/13/23 07:47 36.7 C 72 18 06/13/23 05:24 35.9 C L 76 20 Resp Resp BP BP Pulse Ox Pulse Ox Pulse Ox 06/13/23 12:11 18 18 93 93 06/13/23 12:05 89 L 06/13/23 11:49 116/72 94 06/13/23 09:30 06/13/23 07:47 114/57 L 93 06/13/23 05:24 107/59 L 95 Pulse Ox O2 Del Method O2 Flow Rate 06/13/23 12:11 91 06/13/23 12:05 Nasal Cannula 2 06/13/23 11:49 Nasal Cannula 2 06/13/23 09:30 Nasal Cannula 3 06/13/23 07:47 Nasal Cannula 2 06/13/23 05:24 Room Air
[2023-06-13] MEDS: ADVANCED PROBIOTIC 1250 MG CAPSULE PO SCH (14:56)
[2023-06-13] MEDS: cefTRIAXone SODIUM 2,000 MG in DEXTROSE 5 % MINI-B 50 ML IV SCH (14:56)
[2023-06-13] MEDS: WARFARIN SOD 4 MG TAB PO SCH (14:58)
[2023-06-13] MEDS: ROSUVASTATIN CALCIUM 20 MG TAB PO SCH (20:40)
[2023-06-13] MEDS: METOPROLOL SUCC 25MG EXT REL TAB PO SCH (20:41)
[2023-06-14 06:33] LABS: BUN Creatinine Ratio 21.5 (10-20); Calcium 8.6 mg/dl (8.6-10.3); Creatinine Clr Calc Pharmacy 99.4 ml/min; Est GFR (African American) 104.7 ml/min; Est GFR (Non-African American) 90.3 ml/min; Potassium 3.8 mmol/L (3.5-5.1)
[2023-06-14] MEDS: ADVANCED PROBIOTIC 1250 MG CAPSULE PO SCH (08:08)
[2023-06-14] MEDS: DOXYCYCLINE HYCLATE 100 MG CAP PO SCH (08:09)
[2023-06-14] MEDS: GABAPENTIN 100 MG CAP PO SCH (08:09)
[2023-06-14] MEDS: METOPROLOL SUCC 50MG EXT REL TAB PO SCH (08:09)
[2023-06-14] MEDS: predniSONE 5 MG TAB PO SCH (08:09)
[2023-06-14] MEDS: FUROSEMIDE 40 MG TAB PO SCH (08:09)
[2023-06-14] MEDS: allopurinoL 100 MG TAB PO SCH (08:10)
[2023-06-14] MEDS: FLUTICASONE FUROATE 200MCG 14 PUFFS/INHALER INH SCH (08:10)
[2023-06-14] MEDS: PANTOprazole 40 MG TAB PO SCH (08:10)
[2023-06-14] MEDS: FLUTICASONE PROPIONATE NA SPR 16 GM BTL SCH (08:10)
[2023-06-14] MEDS: UMECLIDINIUM/VILANTEROL 62.5/25MCG 7 PUFFS/INHALER INH SCH (08:11)
[2023-06-14] MEDS: LEVALBUTEROL 1.25 MG/3 ML NEB NEB PRN (08:19)
[2023-06-14] MEDS: INSULIN ASPART PER UNIT CHARGE SC SCH (08:37)
--- NOTE | 2023-06-14 10:55 | Discharge Summary ---
Date of Service June 14, 2023 Admission HPI Per Admitting Provider Patient is 72-year-old male with PMH HTN, HLD, nonischemic cardiomyopathy, s/p AICD, chronic heart failure, CAD, chronic LBBB, on chronic anticoagulation with warfarin, DM II, GERD, gout, ANGELICA, right diabetic foot ulcer, metastatic prostate cancer to bone presented to ER with c/o SOB and cough x 3 days. History obtained from patient and outpatient chart review. Patient with history of metastatic prostate cancer to bone, S/P radiation, currently on chemo and Lupron. Last chemo 05/30/2023. Receives chemo every 3 weeks. Patient states 3 days after receiving chemo will have malaise and diarrhea. Patient states diarrhea and malaise had resolved. Reports 3 days ago started with sore throat, nonproductive cough, congestion, increased shortness of breath and wheezing. Intermittent dizziness with standing. Patient reports poor appetite and has not been eating for the past 2 days. He states he has been drinking water. At baseline uses albuterol nebulizer 3 times a day. Patient states has been using 4 times a day since onset of cough. He has tried OTC Mucinex night medication with minimal relief. Denies any known ill contacts. Denies fever or chills, myalgias, chest pain. On daily prednisone while receiving chemo. Denies fever/chills, diaphoresis, N/V/D/C, DUGGAN, syncope, vision changes, neck pain, CP, orthopnea, palpitations, hemoptysis, choking, otalgia, rhinorrhea, abdominal pain, paresthesias, extremity weakness, extremity edema, rashes, urinary symptoms. Admission Exam Per Admitting Provider General: chronic ill appearing, no distress, WDWN Head: normocephalic, atraumatic Eyes: PERRL, EOM's intact, conjunctiva non-injected, anicteric ENT: normal inspection external ears, nose, mucous membranes moist Neck: supple, trachea midline Lungs: clear, no respiratory distress, +slight scattered expiratory wheezing, rhonchi/rales noted CV: RRR, no murmur, no pretibial edema Abd: normal BS, soft, non-tender Ext: no cyanosis, no calf tenderness Neuro: A&O x 3, however sometimes slower to answer questions as he states having trouble thinking of words, no focal deficits noted, normal affect Skin: warm, dry Principal Diagnosis RSV COPD Possible pneumonia Acute on chronic heart failure with preserved ejection fraction x mild Discharge Exam GENERAL: Alert and oriented x3. NAD, on RA HEENT: No pallor, no icterus. Pupils equal, round and reactive to light. Oral mucosa moist. NECK: No JVD, no neck masses. chest tender to palpate HEART: S1 and S2 heard. Regular rate and rhythm. No murmur, no gallop. RESPIRATORY SYSTEM: Normal AP diameter. No accessory muscle use. No wheezing, no rhonchi, b/l crackles improving. ABDOMEN: Soft, bowel sounds present, nontender, no distention. CENTRAL NERVOUS SYSTEM: No facial droop. Speech is clear. Obeys simple commands. Moves extremities. EXTREMITIES: trace ble edema, no erythema seen. Discharge Data Allergies Allergy/AdvReac Type Severity Reaction Status Date / Time No Known Allergies Allergy Verified 06/07/23 15:22 Consultations 06/07/23 15:18 ED Decision to Admit Stat 06/08/23 08:59 Consult Cardiology Routine Ordered Studies 06/07/23 15:17 CT head/brain wo con Stat Hospital Course (1) Metabolic encephalopathy: Plan 72-year-old male with PMH of HTN, HLD, nonischemic cardiomyopathy, s/p AICD, chronic heart failure, CAD, chronic LBBB, on chronic anticoagulation with warfarin, DM II, GERD, gout, ANGELICA, right diabetic foot ulcer, metastatic prostate cancer to bone presented to ER 06/07 with c/o SOB and cough x 3 days [employer]. Denies fever. He was managed for the following: RSV (acute bronchiolitis due to respiratory syncytial virus): COPD (chronic obstructive pulmonary disease): Possible pneumonia In ER afebrile, 97% on room air, vital stable. Lactate WNL, procalcitonin: 0.3 CXR: Cardiomegaly and AICD with mild pulmonary vascular congestion. Emphysema. Question small pleural effusions. Isolation precaution, follow admitting blood culture. Scheduled and as needed nebs. Continue home Trelegy. Patient passed two-step test. On room air, reports no problem or shortness of breath. Symptomatic management for RSV Repeat cxr 06/09 due to increased oxygen requirement was suggestive of developing pneumonia Patient started on Rocephin and doxycycline 06/09. Continue. Patient reports feeling better, improved cough. Will discharge on oral antibiotic to complete the course. Acute on chronic heart failure with preserved ejection fraction Patient presented with shortness of breath and viral URTI Admitting CXR with pulmonary vascular congestion Patient with increased bilateral crackles on exam 06/08 and increased subjective shortness of breath. Echo reviewed, grade 1 diastolic dysfunction, ejection fraction 45 to 50%. Cardiology on board, appreciate recommendation. titrated metoprolol Continue other cardiac medications. Losartan on hold in favor of diuresis. Continue with home Lasix. Maintain fluid restriction of 1.8 L a day. Elevated troponin: Patient with chest pain/? Reproducible with cough, EKG with ventricular paced rhythm. Troponin trended up 06/08 likely secondary to acute on chronic heart failure. Cardiology on board, appreciate recommendation. Metabolic encephalopathy: Patient with reported increased confusion over the past 3 days [employer] likely secondary to above. Admitting CT head with no acute finding. Resolved. Hyponatremia: Admitting sodium of 130, improving. Likely secondary to poor p.o. intake prior to arrival. resolved. Other chronic medical conditions: Continue with/resume home meds as and when able. T2DM: A1c of 5.7 this admission. Continue with sliding scale insulin. Nonischemic cardiomyopathy, CAD, cardiac defibrillator in place: Continue with home warfarin. 10/24/2021 echo with EF of 60 to 65%, grade 1 diastolic dy sfunction. INR therapeutic. Patient to follow-up with Coumadin clinic in 3 to 5 days time upon discharge..[goal 2-2.5 per outpatient anticoagulation note]. Continue with metoprolol succinate. Diabetic ulcer of foot associated with diabetes mellitus: Follows wound clinic. Last seen 06/06/2023 and had wound debridement. Wound care consult. HTN: Stable, continue home metoprolol, losartan with holding parameters. Hyperlipidemia: Continue home rosuvastatin Sleep apnea: Continue with BiPAP at bedtime Gout: Continue allopurinol GERD: Continue PPI Prostate cancer metastatic to bone: Neutropenia: Anemia: S/p radiation, s/p palliative radiation left hip. Currently on chemo, Lupron Last chemo 05/30/2023 WBC: 2.1 (was 9 on 05/29/2023). Hgb: 9.9 (was 11.5 on 05/29/2023), PLT: 202, neut# 0.9 (was 7 on 05/29/2023). ANC: 895 Monitor for fevers. If would develop plan on starting antibiotics for coverage of neutropenic fever Continue daily prednisone CBC in a.m. to further assess Follows with Dr. Collins DVT prophylaxis: Warfarin DNR/DNI Follows Dr. Reinoso Patient is being discharged to home with home health with following instruction at the point of discharge: Follow-up with your primary care physician within a week time and likely you will need labs CBC/CMP/magnesium/phosphorus. You will be discharged on antibiotic to complete the course for possible pneumonia. Take them as prescribed. Maintain heart healthy diet/less than 2 g sodium intake daily. Maintain fluid restriction of 1.8 L a day. Continue to take your prior to arrival diuresis. Follow-up with Coumadin clinic in 3 to 5 days time upon discharge. Please make sure that you are able to get your medications today by calling your pharmacy before you leave the hospital so that your treatment continuity is not broken. Home Health Attestation I certify that this patient is under my care and that I, or a physicians mobile sales assistant working with me, had a face to-face encounter that meets the home health [id number] encounter requirements with this patient. The encounter with the patient was in whole, or in part, for the following medical condition, which is the primary reason for home health care (list medical condition): I certify that, based on my findings, the following services are medically necessary home health services: My clinical findings support the need for the above services because: Further, I certify that my clinical findings support that this patient is homebound (i.e. absences from home require considerable and taxing effort and are for medical reasons or confucianism services or infrequently or of short duration when for other reasons) because: Certification for Home Health Services: Based on the above findings, I certify that this patient is confined to the home and needs intermittent intermediate care, physical therapy and/or speech therapy or continues to need occupational therapy. The patient is under my care, and I have initiated the establishment of the plan of care. This patient will be followed by a physician who will periodically review the plan of care. Total Time Total Time Spent Total Time Spent (In Minutes): 45 Discharge Plan Discharge Items Patient Disposition: Home - Home Health Services Reason For Visit: SOB Discharge Diagnosis: RSV COPD Possible pneumonia Acute on chronic heart failure with preserved ejection fraction x mild Activity: Resume your previous activity Non-emergency contact: Primary Care Provider Call non-emergency contact if: you have any medication questions, your symptoms worsen and your temperature is above 101.5 Follow-up/Referrals: Konrad Reinoso MD [Primary Care Provider] - (Date & Time 06/14/2023 10:40 AM Provider Konrad Reinoso MD Department General Internal Medicine [facility] ) Diet: Carb Consistent or DM2 and Heart Healthy Addtl Attending Provider Instructions: Follow-up with your primary care physician within a week time and likely you will need labs CBC/CMP/magnesium/phosphorus. You will be discharged on antibiotic to complete the course for possible pneumonia. Take them as prescribed. Maintain heart healthy diet/less than 2 g sodium intake daily. Maintain fluid restriction of 1.8 L a day. Continue to take your prior to arrival diuresis. Follow-up with Coumadin clinic in 3 to 5 days time upon discharge. Please make sure that you are able to get your medications today by calling your pharmacy before you leave the hospital so that your treatment continuity is not broken. Pending Studies at Discharge: No Stand-Alone Forms: My [facility] [employer]), Smoking Cessation Medications and DC Order Prescriptions: New doxycycline hyclate 100 mg Capsule 100 mg PO BID 3 Days Qty: 6 0RF metoprolol succinate 25 mg Tablet Extended Release 24 Hr 25 mg PO QPM Qty: 30 0RF Advanced Probiotic 625 mg (10 billion cell) Capsule 2 cap PO DAILY 7 Days Qty: 14 0RF cefdinir 300 mg capsule 300 mg PO BID 3 Days Qty: 6 0RF Continued Trelegy Ellipta 200-62.5-25 mcg blister with device 1 inh inhalation QAM (DME) BiPap Machine Misc See Rx Instructions .Route Rx Instructions: As directed Lupron Depot (6 Month) 45 mg syringe kit 45 mg IM Q24W metoprolol succinate 50 mg tablet extended release 24 hr 50 mg PO DAILY prednisone 5 mg tablet 5 mg PO DAILY losartan 25 mg tablet 12.5 mg PO DAILY ondansetron HCl 8 mg tablet 8 mg PO Q8H PRN (Reason: NAUSEA/VOMITING) prochlorperazine maleate [Compazine] 10 mg tablet 10 mg PO Q6H PRN (Reason: NAUSEA/VOMITING) mupirocin 2 % ointment 1 applic topical BID warfarin 2 mg Tablet 4 mg PO DAILY gabapentin 100 mg Capsule 200 mg PO TID Patient Comments: 1 tablet 6 times per day is how he takes it albuterol sulfate 90 mcg/actuation Hfa Aerosol Inhaler 2 puff INHALATION Q6H PRN (Reason: Shortness Of Breath Or Wheezing) metformin 500 mg tablet extended release 24 hr 500 mg PO BID rosuvastatin 20 mg tablet 20 mg PO HS guaifenesin [Mucinex] 600 mg tablet extended release 12hr 1,200 mg PO QPM PRN (Reason: Congestion) Patient Comments: noon allopurinol 100 mg tablet 100 mg PO BID docusate sodium [Colace] 100 mg Capsule 100 mg PO QPM PRN (Reason: Constipation) magnesium 250 mg Tablet 250 mg PO BID sennosides [senna] 8.6 mg Tablet 8.6 mg PO HS PRN (Reason: Constipation) albuterol sulfate 2.5 mg /3 mL (0.083 %) Solution For Nebulization 2.5 mg INHALATION Q4H PRN (Reason: Wheezing) omeprazole 20 mg Capsule,Delayed Release(Dr/Ec) 20 mg PO QAM montelukast 10 mg Tablet 10 mg PO HS fluticasone propionate 50 mcg/actuation [place],Suspension 2 spray INTRANASAL DAILY vitamin B complex Capsule 1 cap PO QAM Eucerin Cream 1 applic TOPICAL DAILY PRN (Reason: Rash) Mucinex Cold 2.5-100 mg/5 mL Liquid 0 ml PO QAM PRN (Reason: Congestion) Rx Instructions: PER PT "TAKE 1 DOSE QAM". oxycodone-acetaminophen 5-325 mg tablet 1 tab PO Q8H PRN (Reason: mod-severe pain) Changed furosemide 40 mg tablet 40 mg PO DAILY Qty: 30 0RF Rx Instructions: prescribed 40mg BID. Pt has been taking 40mg daily and then additional 40mg if needed for edema Discharge Orders: Discharge Order (Routine); Ordered 06/14/23 Ordered By: Natahsa Shelby Admission Data Admit Date/Time: 06/07/23 16:09 Attending Provider: Natasha Shelby Admit Provider: Dean Mccallum Primary Care Provider: Konrad Reinoso Other Providers: Dean Mccallum; Nadja Phillips; Guicho Díaz; Siva Martin; Mark Stock; Jerel Mishra.; Rory Arzate; Arlet Khan; Hawa Guido; Nadja Roth; Jones Vergara; Torito Álvarez; Shirin Obando; Rahel Watson; Shakir Kevin; Levi Abraham
== END 2023-06-14 12:27 | disposition home health service (06) | DRG 193 ==
LOC: ED 10:38 → SUATTDRO 16:09 → EDINP 16:09 → 2W 18:02